=== PATIENT | female | born 1940 | race Caucasian/White ===

== ENCOUNTER 2016-10-12 10:32 | Emergency (ER) | payer BC, MEDICAID ==
[~2016-10-12] VITALS: Wt 86.0 kg
[~2016-10-12 10:32] MED LIST: ALBU8.5H3; ASPI-535; DICL75TA2; DOCU100C; ESOM40CA; GABA300C16; GLIP5TAB13 PO; METF-480 PO; PAIN; PANT40TA4 PO; SUCR1TAB; VALS1TAB65; ZOC20; [UNRECOGNIZED DRUG - REMARK]
[2016-10-12] MEDS ORDERED: METHYLPREDNISOLONE 125 MG INJ IV STA (11:09)
[2016-10-12] MEDS ORDERED: IPRATROPIUM (NEB) 0.5 MG/2.5 ML AMP INH STA (11:09)
[2016-10-12] MEDS ORDERED: ALBUTEROL 0.5% (NEB) 2.5 MG/0.5 ML AMP INH STA ×2 (11:09→14:28)
--- NOTE | 2016-10-12 11:12 | ERA ---
ER Documentation Chief Complaint Date/Time DATE: 10/12/16 TIME: 11:12 Chief Complaint cough and congestion for the past month. recent travel from [facility] HPI 76-year-old female with a history of diabetes mellitus type 2, hypertension, dyslipidemia, GERD and asthma brought to the ED by daughter for evaluation one-week history of worsening shortness of breath, wheezing and nonproductive cough. Denies chest pain or palpitations. No abdominal pain, nausea, vomiting, diarrhea or constipation. Denies leg pain or swelling. No headache or neck pain. No sore throat, rhinorrhea or body aches. No fevers or chills. She has had intermittent waxing and waning worsening symptoms since July 2016 but seems to be worse since returning from [facility] week ago. ROS All systems reviewed and are negative except as per history of present illness. Medications Home Meds Active Scripts Prednisone* (Prednisone*) 20 Mg Tab, 40 MG PO DAILY for 3 Days, TAB with food or milk Prov:ALTA COTTON MD 10/12/16 Azithromycin* (Zithromax*) 250 Mg Tablet, 250 MG PO .ZPACK DIRECTED, #6 TAB TAKE 500 MG (2 TABS) THE FIRST DAY THEN 250 MG (1 TAB) DAYS 2-5 Prov:ALTA COTTON MD 10/12/16 Albuterol Sulfate* (Proair HFA*) 8.5 Gm Hfa.aer.ad, 2 PUFF INH Q4H Y for WHEEZING AND SOB, #1 INHALER Prov:ALTA COTTON MD 10/12/16 Reported Medications Ergocalciferol* (Drisdol* (Vitamin D2)) 50,000 Unit Capsule, 40698 UNIT PO Q7D, CAP 10/12/16 Fenofibrate* (Lipofen*) 150 Mg Capsule, 160 MG PO DAILY, TAB 10/12/16 Gabapentin* (Gabapentin*) 300 Mg Capsule, 300 MG PO BID, #60 CAP 10/12/16 Sitagliptin* (Januvia*) 50 Mg Tablet, 50 MG PO DAILY, #30 TAB 10/12/16 Metformin* (Glucophage*) 850 Mg Tablet, 850 MG PO BID, #30 TAB 10/12/16 Omeprazole* (Omeprazole*) 40 Mg Capsule.dr, 40 MG PO DAILY, #30 CAP 10/12/16 Valsartan-Hydrochlorothiazide (Valsartan-HCTZ) 320-25 Mg Tablet, 1 TAB PO DAILY , #30 TAB 10/12/16 Sucralfate* (Carafate*) 1 Gm Tab, 1 GM PO AC MEALS AND BEDTIME, TAB 10/12/16 Albuterol Sulfate* (Proair HFA*) 8.5 Gm Hfa.aer.ad, 2 PUFF INH Q4H Y for WHEEZING AND SOB, #1 INHALER 10/12/16 Beclomethasone Dip* (Qvar 40*) 7.3 Gm Inha, 1 PUFF INH BID, #1 INHALER 10/12/16 Aspirin* (Aspirin* EC) 81 Mg Tablet., 81 MG PO DAILY, TAB 10/12/16 Discontinued Reported Medications [Pain] No Conflict Check 11/02/12 Pantoprazole* (Pantoprazole*) 40 Mg Tablet.dr, 40 MG PO DAILY, #1 11/02/12 Glipizide* (Glipizide*) 5 Mg Tablet, 5 MG PO BID, #1 11/02/12 Metformin* (Glucophage*) 850 Mg Tablet, 850 MG PO BID, #1 11/02/12 Albuterol Sulfate* (Proair HFA*) 8.5 Gm Hfa.aer.ad 11/01/12 [Ulcer Med Name Unk] No Conflict Check 10/14/12 Aspirin Ec (Aspir 81) 81 Mg Tablet. 10/14/12 Sucralfate (Carafate) 1 G Tablet 10/20/10 Docusate Sodium (Docu Soft) 100 Mg Capsule 06/22/10 Gabapentin* (Gabapentin*) 300 Mg Capsule 06/22/10 Valsartan-Hydrochlorothiazide (Diovan HCT) 1 Tab Tablet 06/22/10 Simvastatin (Simvastatin) 20 Mg Tablet 06/22/10 Esomeprazole Mag Trihydrate (Nexium) 40 Mg Capsule. 06/22/10 Diclofenac Sodium* (Diclofenac Sodium*) 75 Mg Tablet. 06/22/10 Allergies Allergies: Coded Allergies: No Known Drug Allergies (Verified Allergy, Unknown, 01/30/14) PMhx/Soc Reviewed in chart. As per HPI. History of Surgery: Yes (HERNIA;ABDOMINAL SURGERIES, right shoulder, GB) Anesthesia Reaction: No Hx Neurological Disorder: No Hx Respiratory Disorders: Yes (ASTHMA) Hx Cardiac Disorders: Yes (HTN) Hx Psychiatric Problems: No Hx Miscellaneous Medical Probl: Yes (DM,HIGH CHOLESTEROL) Hx Alcohol Use: No Hx Substance Use: No Hx Tobacco Use: Yes Smoking Status: Former smoker FmHx No stroke or cancer Physical Exam Vitals Vital Signs Date Time Temp Pulse Resp B/P Pulse Ox O2 Delivery O2 Flow Rate FiO2 10/12/16 12:16 92 22 96 1.0 10/12/16 11:41 Nasal Cannula 2 10/12/16 10:33 98.6 119 28 145/79 92 Physical Exam Const: Alert, mild respiratory distress. Head: Atraumatic Eyes: Normal Conjunctiva ENT: Normal External Ears, Nose and Mouth. Neck: Full range of motion. No JVD. Resp: Decreased breath sounds bilaterally with mild to moderate expiratory wheezing and prolonged expiratory phase. No rhonchi or rales. Cardio: Regular rate and rhythm, no murmurs Abd: Soft, non tender, non distended. Normal bowel sounds. Obese. Skin: No petechiae or rashes Back: No midline or flank tenderness Ext: No cyanosis, or edema. No calf pain or swelling. Neur: Awake and alert. Cranial nerves II through XII are grossly intact. No focal deficit observed. Psych: Normal Mood and Affect Result Diagram: 10/12/16 1130 10/12/16 1130 Results 24 hrs Laboratory Tests Test 10/12/16 11:30 Anion Gap 12 B-Type Natriuretic Peptide 225PG/ML Basophils # 0.010^3/ul Basophils % 0.4% Blood Morphology Comment Blood Urea Nitrogen 14mg/dl Calcium Level 9.1mg/dl Carbon Dioxide Level 34mmol/L Chloride Level 95mmol/L Creatinine 0.94mg/dl Eosinophils # 0.610^3/ul Eosinophils % 6.2% Glucose Level 283mg/dl Hematocrit 39.2% Hemoglobin 13.0g/dl Lymphocytes # 1.710^3/ul Lymphocytes % 18.6% Mean Corpuscular Hemoglobin 28.8pg Mean Corpuscular Hemoglobin Concent 33.2g/dl Mean Corpuscular Volume 86.6fl Mean Platelet Volume 8.6fl Monocytes # 0.510^3/ul Monocytes % 5.7% Neutrophils # 6.210^3/ul Neutrophils % 69.1% Nucleated Red Blood Cells # 0.010^3/ul Nucleated Red Blood Cells % 0.0/100WBC Platelet Count 85238^3/UL Potassium Level 3.4mmol/L Red Blood Count 4.5310^6/ul Red Cell Distribution Width 13.7% Sodium Level 138mmol/L Troponin I < 0.012ng/ml White Blood Count 9.010^3/ul Current Medications Medications (Trade) Dose Ordered Sig/Roxanna Route PRN Reason Start Time Stop Time Status Last Admin Dose Admin Albuterol (Proventil 0.5% (Neb)) 15 mg ONCE STAT INH 10/12/16 11:09 10/12/16 11:12 DC 10/12/16 12:15 Ipratropium [place] (Atrovent 0.02% (Neb)) 1 mg ONCE STAT INH 10/12/16 11:09 10/12/16 11:12 DC 10/12/16 12:15 Methylprednisolone Sodium Succinate (Solu-Medrol) 125 mg ONCE STAT IV 10/12/16 11:09 10/12/16 11:12 DC 10/12/16 11:56 RHYTHM STRIP INTERPRETATION: Time: 11: 05. Sinus rhythm. Ventricular rate 105. No ectopy. Indication: Shortness of breath. EKG: TIME: 10: 51. Sinus tachycardia. Ventricular rate 104. Normal CT QRS. No acute ST segment elevation or depression. No ectopy. EP Interpretation: Sinus tachycardia, otherwise normal ECG. IMAGING: PROCEDURE: XR Chest AP portable CLINICAL INDICATION: Short of breath TECHNIQUE: An AP portable radiograph of the chest was submitted. COMPARISON: 03/14/2013 FINDINGS: Support Hardware: None Cardiovascular: The cardiovascular silhouette appears unremarkable except for atherosclerotic change involving the aorta. Lung Christianson: There is slight interstitial prominence at the lung bases increased over the previous. Pleural Spaces: No pneumothorax or pleural effusion is identified. Osseous Structures: [place] sutures are seen within the proximal right humeral head. Soft Tissues: The soft tissues appear generous. IMPRESSION: 1. Atherosclerotic aorta 2. Increasing interstitial markings seen at the lung bases exaggerated by suboptimal inspiration. 3. Previous right shoulder surgery. R Pedro, Physician Date Time Electronically viewed and signed by Physician Moody on 10/12/2016 11:55 RH/ Procedures/MDM DOCUMENTS REVIEWED: ED nurse, prior ED, prior records ED COURSE: Nebulized albuterol 15 mg and Atrovent 1 mg. Solu-Medrol 125 mg IV REEXAMINATION/REEVALUATION: Time: 13: 45. Doing well. No further wheezing. Lungs clear. MEDICAL DECISION MAKIN-year-old female with a history of diabetes mellitus type 2, hypertension, dyslipidemia, GERD and asthma brought to the ED by daughter for evaluation one-week history of worsening shortness of breath, wheezing and nonproductive cough. Patient presents with symptoms consistent with acute asthma exacerbation and bronchitis possibly bacterial. No radiographic evidence of pneumonia or pneumothorax. Symptoms improved significantly with nebulized beta agonists and intravenous corticosteroids. Mild hyperglycemia and the patient will require vigilance of her blood sugars. Stable for discharge with precautionary instructions, albuterol inhaler, short course of steroids, antibiotics and outpatient follow-up as counseled. Counseled [patient and family] regarding diagnostic workup, diagnosis and need for followup. Understands to return to ED if symptoms recur, worsen or any other concerns. Departure Diagnosis: Primary Impression: Acute asthma exacerbation Qualified Code: J45.901 - Asthma with acute exacerbation, unspecified asthma severity Additional Impressions: Hyperglycemia due to type 2 diabetes mellitus Qualified Code: E11.65 - Type 2 diabetes mellitus with hyperglycemia, unspecified roasterman insulin use status Acute bronchitis Qualified Code: J20.9 - Acute bronchitis, unspecified organism Hypertension Qualified Code: I10 - Essential hypertension Condition: Stable Patient Instructions: Asthma, Acute (Adult), Bronchitis With Wheezing (Adult), High Blood Pressure (Hypertension) ALTA COTTON MD Oct 12, 2016 11:12
[2016-10-12] MEDS ORDERED: BECL8.7A INH (11:19)
[2016-10-12] MEDS ORDERED: ASPI-664 PO (11:19)
[2016-10-12] MEDS ORDERED: ALBU8.5H3 INH ×2 (11:20→14:01)
[2016-10-12] MEDS ORDERED: VALS1TAB82 PO (11:20)
[2016-10-12] MEDS ORDERED: OMEP40CA6 PO (11:20)
[2016-10-12] MEDS ORDERED: SUCR1TAB56 PO (11:20)
[2016-10-12] MEDS ORDERED: METF-480 PO (11:21)
[2016-10-12] MEDS ORDERED: GABA300C16 PO (11:21)
[2016-10-12] MEDS ORDERED: SITA50TA2 PO (11:21)
[2016-10-12] MEDS ORDERED: ERGO500014 PO (11:22)
[2016-10-12] MEDS ORDERED: FENO150C2 PO (11:22)
[2016-10-12 11:45] LABS: BASOPHILS % 0.4 % (0.0-2.0); EOSINOPHILS # 0.6 10^3/ul (0.0-0.5); EOSINOPHILS % 6.2 % (0.0-7.0); HEMATOCRIT 39.2 % (37.0-47.0); LYMPHOCYTES # 1.7 10^3/ul (0.8-2.9); LYMPHOCYTES % 18.6 % (15.0-51.0); MEAN CORPUSCULAR HEMOGLOBIN 28.8 pg (29.0-33.0); MEAN CORPUSCULAR HGB CONC 33.2 g/dl (32.0-37.0); MEAN CORPUSCULAR VOLUME 86.6 fl (82.0-101.0); MEAN PLATELET VOLUME 8.6 fl (7.4-10.4); MONOCYTE # 0.5 10^3/ul (0.3-0.9); MONOCYTES % 5.7 % (0.0-11.0); NEUTROPHIL # 6.2 10^3/ul (1.6-7.5); NEUTROPHILS % 69.1 % (39.0-77.0); PLATELET COUNT 254 10^3/UL (140-440); RED BLOOD COUNT 4.53 10^6/ul (4.20-5.40); RED CELL DISTRIBUTION WIDTH 13.7 % (11.5-14.5)
[2016-10-12 11:49] LABS: CONDITION 1
[2016-10-12 11:55] LABS: CHLORIDE 95 mmol/L (97-110); POTASSIUM 3.4 mmol/L (3.5-5.1); SODIUM 138 mmol/L (135-144)
--- NOTE | 2016-10-12 11:56 | RADRPT ---
PROCEDURE: XR Chest AP portable CLINICAL INDICATION: Short of breath TECHNIQUE: An AP portable radiograph of the chest was submitted. COMPARISON: 03/14/2013 FINDINGS: Support Hardware: None Cardiovascular: The cardiovascular silhouette appears unremarkable except for atherosclerotic change involving the aorta. Lung Christianson: There is slight interstitial prominence at the lung bases increased over the previous. Pleural Spaces: No pneumothorax or pleural effusion is identified. Osseous Structures: [place] sutures are seen within the proximal right humeral head. Soft Tissues: The soft tissues appear generous. IMPRESSION: 1. Atherosclerotic aorta 2. Increasing interstitial markings seen at the lung bases exaggerated by suboptimal inspiration. 3. Previous right shoulder surgery. Physician Moody Date Time Electronically viewed and signed by Physician Moody on 10/12/2016 11:55 /
[2016-10-12 11:58] LABS: ANION GAP 12 (8-16); BLOOD UREA NITROGEN 14 mg/dl (7-20); CALCIUM 9.1 mg/dl (8.4-10.2); CARBON DIOXIDE 34 mmol/L (21-31); CREATININE 0.94 mg/dl (0.44-1.00); GLUCOSE 283 mg/dl (70-220)
[2016-10-12 12:05] LABS: B-TYPE NATRIURETIC PEPTIDE 225 PG/ML (0-450)
[2016-10-12 12:30] LABS: TROPONIN-I < 0.012 ng/ml (0.00-0.12)
[2016-10-12] MEDS ORDERED: AZIT250T94 PO (14:01)
[2016-10-12] MEDS ORDERED: PRED20TA PO (14:01)
[2016-10-12] MEDS ORDERED: ALBU2.5V3 NEB (14:19)
[2016-10-12 14:21] VITALS: BP 110/69
[2016-10-12 15:19] VITALS: PULSE 78; RESP 22
== END 2016-10-12 15:25 | disposition home or self-care (01) ==
LOC: E/R 10:32
DX: J45.901 Unspecified asthma with (acute) exacerbation (principal); E11.65 Type 2 diabetes mellitus with hyperglycemia; J20.9 Acute bronchitis, unspecified; I10 Essential (primary) hypertension; Z79.4 Long term (current) use of insulin; Z79.82 Long term (current) use of aspirin; Z87.891 Personal history of nicotine dependence
CPT/HCPCS: 71010; 80048; 83880; 84484; 85025; 87400; 93005; 94644; 94645; 96374; 99285; J2930

== ENCOUNTER 2016-10-19 18:35 | Inpatient (IN) | payer BC, MEDICAID ==
[~2016-10-19] VITALS: Ht 157.5 cm; Wt 88.3 kg
[~2016-10-19 18:35] MED LIST changes: +ALBU2.5V3 NEB; -ALBU8.5H3; +ALBU8.5H3 INH; -ASPI-535; +ASPI-664 PO; +AZIT250T94 PO; +BECL8.7A INH; -DICL75TA2; -DOCU100C; +ERGO500014 PO; -ESOM40CA; +FENO150C2 PO; -GABA300C16; +GABA300C16 PO; -GLIP5TAB13 PO; +OMEP40CA6 PO; -PAIN; -PANT40TA4 PO; +PRED20TA PO; +SITA50TA2 PO; -SUCR1TAB; +SUCR1TAB56 PO; -VALS1TAB65; +VALS1TAB82 PO; -ZOC20; -[UNRECOGNIZED DRUG - REMARK]
[2016-10-19] MEDS ORDERED: ALBUTEROL 0.5% (NEB) 2.5 MG/0.5 ML AMP INH STA (21:49)
[2016-10-19] MEDS ORDERED: ONDANSETRON 4 MG INJ IV STA (21:49)
[2016-10-19] MEDS ORDERED: SOD CHLORIDE 0.9% 1,000 ML IV STA (21:49)
[2016-10-19] MEDS ORDERED: SOD CHLORIDE 0.9% 100 ML ONE (22:08)
[2016-10-19] MEDS ORDERED: IOHEXOL 100 ML ONE (22:08)
[2016-10-19 23:05] LABS: INR 1.03; PROTIME 13.5 Sec (12.2-14.2); PT RATIO 1.1
[2016-10-19 23:06] LABS: ALBUMIN 3.6 g/dl (3.3-4.9); POTASSIUM 3.6 mmol/L (3.5-5.1)
[2016-10-19 23:08] LABS: BASOPHILS % 0.2 % (0.0-2.0); BILIRUBIN,INDIRECT 0.3 mg/dl (0-1.1); BILIRUBIN,TOTAL 0.3 mg/dl (0.2-1.3); CREATININE 0.95 mg/dl (0.44-1.00); EOSINOPHILS # 0.3 10^3/ul (0.0-0.5); EOSINOPHILS % 3.3 % (0.0-7.0); HEMATOCRIT 38.1 % (37.0-47.0); HEMOGLOBIN 12.7 g/dl (12.0-16.0); LYMPHOCYTES # 2.7 10^3/ul (0.8-2.9); MEAN CORPUSCULAR HEMOGLOBIN 30.1 pg (29.0-33.0); MEAN CORPUSCULAR HGB CONC 33.3 g/dl (32.0-37.0); MEAN CORPUSCULAR VOLUME 90.3 fl (82.0-101.0); MEAN PLATELET VOLUME 9.2 fl (7.4-10.4); MONOCYTE # 0.7 10^3/ul (0.3-0.9); MONOCYTES % 6.9 % (0.0-11.0); NEUTROPHIL # 6.7 10^3/ul (1.6-7.5); NEUTROPHILS % 63.6 % (39.0-77.0); PLATELET COUNT 227 10^3/UL (140-440); RED BLOOD COUNT 4.22 10^6/ul (4.20-5.40); RED CELL DISTRIBUTION WIDTH 13.9 % (11.5-14.5); UNCORRECTED WBC 10.5 10^3/ul (4.8-10.8); WHITE BLOOD COUNT 10.5 10^3/ul (4.8-10.8)
[2016-10-19 23:09] LABS: ALBUMIN/GLOBULIN RATIO 1.05
[2016-10-19 23:11] LABS: CONDITION 1
[2016-10-19 23:20] LABS: TROPONIN-I 0.024 ng/ml (0.00-0.12)
[2016-10-19] MEDS ORDERED: HEPARIN 25000 UNITS/250 ML 250 ML IV STA (23:41)
[2016-10-19] MEDS ORDERED: HEPARIN 1000 UNITS/ML 10 ML INJ IV STA (23:41)
--- NOTE | 2016-10-19 23:45 | RADRPT ---
PROCEDURE: CTA CHEST WITH CONTRAST CLINICAL INDICATION: 76-year-old diabetic female with shortness of breath and hypertension. TECHNIQUE: The study was performed utilizing a [employer] VCT 64-slice CT scanner. Direct axi al sections were obtained from the thoracic inlet through the chest to the upper abdomen with a bolu s injection of 100 cc of Omnipaque 350 nonionic contrast material. Sagittal, coronal and maximal int ensity projections re-formations were obtained. Automated exposure control and iterative reconstruct ion techniques were utilized for this examination. The images were reviewed on a PACS workstation. CTD/vol = 35.7 mGy; Total Exam DLP = 550.2 mGy-cm. COMPARISON: None. FINDINGS: The aorta is mildly calcified but without aneurysmal dilatation or dissection. Cardiomegaly is prese nt. Coronary artery calcifications are visualized. There are small lymph nodes seen within the medi astinum which are not pathologic by size criteria. The main pulmonary artery is enlarged measuring 3 .9 cm suggestive of pulmonary hypertension. There are filling defects identified within the right t runcus anterior, right interlobar or, right basal segmental, left middle lobe, left basal segmental branches consistent with pulmonary emboli. There is scarring within the lung apices. There is a taina cified granuloma within the superior segment of the left lower lobe on axial image 3-41 measuring ap proximately 8 x 4 x 5 mm. There is a small nodular density with central calcification presumably re presenting a granuloma on axial image 3-41 measuring 4 x 4 mm. There is minimal bibasilar subsegmen lucian atelectasis. There is no evidence for focal consolidation. There is no evidence for a pneumothorax. Mild degenerative changes are present within the spine. Scans through the upper abdomen reveals that the upper liver has a mildly irregular contour with a s mall nonspecific peripheral right hepatic posterior calcific density measuring 6 x 5 mm on axial ramiro ge 3-181. The gallbladder is not visualized presumably from prior cholecystectomy. The adrenal gland s have a normal appearance. The upper kidneys are functional and are without evidence for obstructio n. There are bilateral renal cysts identified. The largest cyst on the right side is in the mid ri ght kidney measuring 5.4 x 5.6 cm. The largest cyst in the left side is partially visualized within the peripelvic region measuring 2.7 x 2.8 cm. IMPRESSION: 1. Cardiomegaly with coronary artery calcifications. 2. Enlarged main pulmonary artery suggestive of pulmonary hypertension. 3. Multiple bilateral pulmonary emboli more prominently on the right side involving the right trunc us anterior, right interlobar and bilateral basal segmental branches. 4. No CTA evidence for thoracic aortic aneurysm/dissection. 5. Biapical scarring. 6. Right upper lobe and superior segment left lower lobe granulomas. 7. Minimal bibasilar subsegmental atelectasis. 8. Partially visualized bilateral renal cysts. 9. Degenerative changes within the spine. CRITICAL RESULTS: A call report was made to [facility] ER Dr. Riley on October 19, 2016 11:38 p.m. .Pedro Stevens MD, Date Time Electronically viewed and signed by .Pedro Stevens MD, on 10/19/2016 23:45 .Rinku/
--- NOTE | 2016-10-19 23:49 | RADRPT ---
PROCEDURE: CHEST - 1 VIEW CLINICAL INDICATION: 76-year-old female with shortness of breath and hypertension.. TECHNIQUE: A single frontal AP upright view of the chest was performed portably. The images were reviewed on a PACS workstation. COMPARISON: Chest x-ray October 12, 2016. FINDINGS: The cardiomediastinal silhouette is enlarged. The thoracic aortic arch is calcified. Chronic lung changes are present. There is mild biapical scarring. There is a granuloma within the left upper l judith zone measuring approximately 6 mm. There is mild bibasilar subsegmental atelectasis. There is no evidence for focal consolidation. There is no evidence for congestive heart failure. There is no evidence for pneumothorax. Surgical anchors are seen within the right humeral head. IMPRESSION: 1. Cardiomegaly. 2. Calcified thoracic aortic arch. 3. Chronic lung changes with biapical scarring. 4. Left upper lung zone 6 mm granuloma. 5. Mild bibasilar subsegmental atelectasis. 6. Prior right shoulder surgery. .Pedro Stevens MD, Date Time Electronically viewed and signed by .Pedro Stevens MD, on 10/19/2016 23:48 .M/
--- NOTE | 2016-10-19 23:56 | ERA ---
ER Documentation Chief Complaint Date/Time DATE: 10/19/16 TIME: 23:52 Chief Complaint SOB x 1 week with weakness and cough HPI 76-year-old woman brought in by family member for continued weakness and cough, she also complains of posterior upper back pain and shortness of breath. Symptoms have been going on for about 10 days, ever since she returned from [facility] after a very long flight (over 5 hours) which had multiple different connections in [facility] and [facility]. She was seen and evaluated here a few days ago and diagnosed with asthma/bronchitis and treated in the ED with bronchodilators and discharged with a prescription of albuterol and azithromycin , which she states she has been using without relief. She denies chest pain, no fevers or chills, no vomiting or diarrhea, no headache or blurry vision. Patient denies lower extremity swelling, denies history of blood clots, no loss of consciousness. ROS All systems reviewed and are negative except as per history of present illness. Medications Home Meds Active Scripts Albuterol Sulfate* (Albuterol Sulfate* Neb) 0.083%-3 Ml Neb, 2.5 MG NEB Q4 Y for SHORTNESS OF BREATH, #30 EA Prov:ALTA COTTON MD 10/12/16 Prednisone* (Prednisone*) 20 Mg Tab, 40 MG PO DAILY for 3 Days, TAB with food or milk Prov:ALTA COTTON MD 10/12/16 Albuterol Sulfate* (Proair HFA*) 8.5 Gm Hfa.aer.ad, 2 PUFF INH Q4H Y for WHEEZING AND SOB, #1 INHALER Prov:ALTA COTTON MD 10/12/16 Reported Medications Ergocalciferol* (Drisdol* (Vitamin D2)) 50,000 Unit Capsule, 33245 UNIT PO Q7D, CAP 10/12/16 Fenofibrate* (Lipofen*) 150 Mg Capsule, 160 MG PO DAILY, TAB 10/12/16 Gabapentin* (Gabapentin*) 300 Mg Capsule, 300 MG PO BID, #60 CAP 10/12/16 Sitagliptin* (Januvia*) 50 Mg Tablet, 50 MG PO DAILY, #30 TAB 10/12/16 Metformin* (Glucophage*) 850 Mg Tablet, 850 MG PO BID, #30 TAB 10/12/16 Omeprazole* (Omeprazole*) 40 Mg Capsule.dr, 40 MG PO DAILY, #30 CAP 10/12/16 Valsartan-Hydrochlorothiazide (Valsartan-HCTZ) 320-25 Mg Tablet, 1 TAB PO DAILY , #30 TAB 10/12/16 Sucralfate* (Carafate*) 1 Gm Tab, 1 GM PO AC MEALS AND BEDTIME, TAB 10/12/16 Beclomethasone Dip* (Qvar 40*) 7.3 Gm Inha, 1 PUFF INH BID, #1 INHALER 10/12/16 Aspirin* (Aspirin* EC) 81 Mg Tablet.dr, 81 MG PO DAILY, TAB 10/12/16 Discontinued Reported Medications Albuterol Sulfate* (Proair HFA*) 8.5 Gm Hfa.aer.ad, 2 PUFF INH Q4H Y for WHEEZING AND SOB, #1 INHALER 10/12/16 Discontinued Scripts Azithromycin* (Zithromax*) 250 Mg Tablet, 250 MG PO .ZPACK DIRECTED, #6 TAB TAKE 500 MG (2 TABS) THE FIRST DAY THEN 250 MG (1 TAB) DAYS 2-5 Prov:ALTA COTTON MD 10/12/16 Allergies Allergies: Coded Allergies: No Known Drug Allergies (Verified Allergy, Unknown, 10/19/16) PMhx/Soc Obesity, asthma, hypertension, diabetes mellitus History of Surgery: Yes (HERNIA;ABDOMINAL SURGERIES, right shoulder, GB) Anesthesia Reaction: No Hx Neurological Disorder: No Hx Respiratory Disorders: Yes (ASTHMA) Hx Cardiac Disorders: Yes (HTN) Hx Psychiatric Problems: No Hx Miscellaneous Medical Probl: Yes (DM,HIGH CHOLESTEROL) Hx Alcohol Use: No Hx Substance Use: No Hx Tobacco Use: Yes Smoking Status: Never smoker FmHx Family History: No diabetes Physical Exam Vitals Vital Signs Date Time Temp Pulse Resp B/P Pulse Ox O2 Delivery O2 Flow Rate FiO2 10/20/16 00:00 2.0 10/19/16 22:43 Non Rebreather 10/19/16 22:40 98.3 92 24 150/82 94 Venturi Mask 10.0 10/19/16 22:36 Non Rebreather 10/19/16 21:59 101 32 94 21 10/19/16 19:52 98.8 104 24 146/73 91 Physical Exam GENERAL: Well-developed, tachypnea, dyspneic, afebrile HEENT: Moist mucous membranes, pink conjunctiva, no cervical spine tenderness or step-off deformities, no goiter, no jaundice or icterus, extraocular movements intact without pain. No submandibular induration, and no pharyngeal erythema NEURO: Alert and oriented 3, cranial nerves II through XII intact bilaterally, pupils equal round reactive to light, no focal deficits or facial asymmetry, sensation intact distally Strength 5/5 in upper and lower extremities bilaterally CARDIAC: Tachycardic and regular, no murmurs rubs or gallops LUNGS: No obvious wheezing, crackles, or stridor ABDOMEN: Soft nontender, no guarding, no rigidity, no rebound, no psoas sign no obturator sign. Normoactive bowel sounds SKIN: Warm and dry to touch, no abrasions, contusions, or hematomas, no lacerations, no ecchymosis, no target lesions, and without ulcers EXTREMITIES: No clubbing cyanosis or edema, calves are bilaterally symmetrical, no Homans sign, no popliteal cord sign. Distal pulses equal and bilateral PSYCH: Normal affect without agitation or irritability Result Diagram: 10/19/16222210/19/163 Results 24 hrs Laboratory Tests Test 10/19/16 22:23 10/19/16 23:41 Alanine Aminotransferase (ALT/SGPT) 27IU/L Albumin 3.6g/dl Albumin/Globulin Ratio 1.05 Alkaline Phosphatase 60IU/L Anion Gap 14 Aspartate Amino Transf (AST/SGOT) 26IU/L Basophils # 0.010^3/ul Basophils % 0.2% Blood Urea Nitrogen 15mg/dl Calcium Level 9.0mg/dl Carbon Dioxide Level 31mmol/L Chloride Level 96mmol/L Creatinine 0.95mg/dl Direct Bilirubin 0.00mg/dl Eosinophils # 0.310^3/ul Eosinophils % 3.3% Globulin 3.40g/dl Glucose Level 256mg/dl Hematocrit 38.1% Hemoglobin 12.7g/dl INR International Normalized Ratio 1.03 Indirect Bilirubin 0.3mg/dl Lipase 91U/L Lymphocytes # 2.710^3/ul Lymphocytes % 26.0% Mean Corpuscular Hemoglobin 30.1pg Mean Corpuscular Hemoglobin Concent 33.3g/dl Mean Corpuscular Volume 90.3fl Mean Platelet Volume 9.2fl Monocytes # 0.710^3/ul Monocytes % 6.9% Neutrophils # 6.710^3/ul Neutrophils % 63.6% Nucleated Red Blood Cells # 0.010^3/ul Nucleated Red Blood Cells % 0.0/100WBC Platelet Count 32761^3/UL Potassium Level 3.6mmol/L Prothrombin Time 13.5Sec Prothrombin Time Ratio 1.1 Red Blood Count 4.2210^6/ul Red Cell Distribution Width 13.9% Sodium Level 137mmol/L Total Bilirubin 0.3mg/dl Total Protein 7.0g/dl Troponin I 0.024ng/ml White Blood Count 10.510^3/ul Arterial Blood HCO3 29.3mmol/L Arterial Blood Base Excess 3.3mmol/L Arterial Blood Oxygen Saturation 94.4mmHG Yared Test N/A Arterial Blood Gas Puncture Site Right Brachial Arterial Blood Carboxyhemoglobin 0.3% Arterial Blood Date Drawn 10/20/2016 12:13:37 AM Arterial Blood Methemoglobin 0.2% Arterial Blood pCO2 (Temp correct) 50.4mmhg Arterial Blood pH (Temp corrected) 7.382 Arterial Blood pO2 (Temp corrected) 72.7mmHG Blood Gas A-a O2 Differential 60.2mmHg Blood Gas Modality NASAL CANNULA Blood Gas Notified Time 10/20/2016 12:18:05 AM Blood Gas Notified Whom MG Blood Gas Specimen Source Blood arterial Blood Gas Temperature 37.0C FiO2 27.0% Oxyhemoglobin Percent 93.9% Total Hemoglobin 12.8g/dl Current Medications Medications (Trade) Dose Ordered Sig/Roxanna Route PRN Reason Start Time Stop Time Status Last Admin Dose Admin Albuterol 10 mg 10 mg ONCE STAT INH 10/19/16 21:49 10/19/16 21:51 DC 10/19/16 21:59 Sodium Chloride (NS) 1,000 ml @ 1,000 mls/hr Q1H STAT IV 10/19/16 21:49 10/19/16 22:48 DC 10/19/16 22:06 Ondansetron HCl (Zofran Inj) 4 mg ONCE STAT IV 10/19/16 21:49 10/19/16 21:51 DC 10/19/16 22:06 IV Flush 10 ml 10 ml STK-MED ONCE .ROUTE 10/19/16 22:08 10/19/16 22:09 DC 10/19/16 22:44 Sodium Chloride 100 ml @ ud STK-MED ONCE .ROUTE 10/19/16 22:08 10/19/16 22:09 DC 10/19/16 22:45 Iohexol (Omnipaque) 100 ml @ ud STK-MED ONCE .ROUTE 10/19/16 22:08 10/19/16 22:09 DC 10/19/16 22:45 Aspirin (Aspirin) 325 mg ONCE ONCE PO 10/20/16 00:00 10/20/16 00:01 DC 10/20/16 00:08 Heparin Sodium (Porcine) 5000 unit 5,000 unit ONCE STAT IV 10/19/16 23:41 10/19/16 23:45 DC 10/20/16 00:07 Heparin Sodium (Porcine) (Heparin 07685 Units/250 ml) 250 ml @ 0 mls/hr ONCE STAT IV 10/19/16 23:41 10/19/16 23:45 DC 10/20/16 00:08 Enalaprilat (Vasotec Iv) 1.25 mg ONCE ONCE IV 10/20/16 00:00 10/20/16 00:01 DC 10/20/16 00:06 Procedures/MDM IV line was established patient was placed on back filler operator rhythm strip revealed a narrow complex tachycardia at about 100 bpm with upright P and T waves. Patient was afebrile and hypoxic on room air. EKG performed, read by me: 100 bpm, sinus tachycardia, normal axis, no acute ST segment changes, narrow QRS complex, with good R-wave progression in precordial leads. One AP view of the chest performed, read by me reveals no acute infiltrates, normal mediastinum, sharp costophrenic and cardiac borders, no air under the diaphragm. Otherwise unremarkable chest x-ray. I administered 1 L normal saline intravenously and initially albuterol 10 mg via nebulizer with Zofran 4 mg IV. There was minimal improvement in symptoms. Given the patient's initial tachycardia and hypoxia and continued symptoms a CT angiogram of the chest was ordered. CTA reveals bilateral pulmonary emboli worse on the right compared to the left. Please refer to radiologist dictation for full report. I treated the patient immediately with aspirin 325 mg p.o., heparin 5000 unit bolus followed by heparin drip. Cardiac Critical Care: Time: 50 minutes, this was time separate from other procedures Treatments/Evaluations: Close monitoring for dangerous arrhythmia and cardiovascular collapse, while treating with advance cardiac medications and techniques. CBC was unremarkable, electrolytes revealed a BUN/creatinine of 15/1, liver function tests were normal, troponin was negative. ABG was performed on low flow oxygen revealing a pH of 7.38, PCO2 50, PO2 73 revealing respiratory alkalosis with a normal pH. Patient will be admitted to telemetry setting for continued anticoagulant therapy. Departure Diagnosis: Primary Impression: Pulmonary emboli Qualified Code: I26.09 - Other acute pulmonary embolism with acute cor pulmonale Additional Impressions: Hypertension Qualified Code: I10 - Essential hypertension Shortness of breath Condition: Serious TEDDY ZHANG MD Oct 19, 2016 23:56
[2016-10-20] VITALS (13 sets, daily range): BP systolic 116–139; BP diastolic 56–71; PULSE 61–95; RESP 18–23; TEMP 98.5; Ht 157.5 cm; Wt 88.3 kg
[2016-10-20] MEDS ORDERED: ASPIRIN 325 MG TAB PO ONE
[2016-10-20] MEDS ORDERED: ENALAPRILAT 1.25 MG INJ IV ONE
[2016-10-20 00:18] LABS: AADO2 Arterial 60.2 mmHg (7.0-24.0); Arterial Base Excess 3.3 mmol/L (-3.0-3); Arterial COHb 0.3 % (0.0-3.0); Arterial Fraction of Oxyhgb 93.9 % (93.0-99.0); Arterial HCO3 29.3 mmol/L (22.0-26.0); Arterial MetHb 0.2 % (0.0-1.5); Arterial Total Hemglobin 12.8 g/dl (12.0-18.0); MODE NASAL CANNULA
[2016-10-20] MEDS ORDERED: ALBUTEROL 0.083% (NEB) 2.5 MG/3 ML AMP NEB PRN (02:30)
[2016-10-20] MEDS ORDERED: HEPARIN 25000 UNITS/250 ML 250 ML IV SCH (02:30)
[2016-10-20] MEDS ORDERED: ONDANSETRON 4 MG INJ IV PRN (02:30)
[2016-10-20] MEDS ORDERED: ALBUTEROL HFA 8 GM INHALER INH PRN (02:30)
[2016-10-20] MEDS ORDERED: GLUCOSE GEL 15 GRAM TUBE BUCCAL PRN (03:00)
[2016-10-20] MEDS ORDERED: DEXTROSE 50% 50 ML SYRINGE IV PRN ×2 (03:00)
[2016-10-20] MEDS ORDERED: ALBUTEROL 0.5% (NEB) 2.5 MG/0.5 ML AMP HHN PRN (03:00)
[2016-10-20] MEDS ORDERED: GLUCAGON 1 MG INJ IM PRN (03:00)
[2016-10-20] MEDS ORDERED: LEVALBUTEROL (NEB) 0.63 MG/3 ML AMP HHN PRN (03:00)
[2016-10-20] MEDS ORDERED: GLUCOSE GEL 15 GRAM TUBE PO PRN ×2 (03:00)
[2016-10-20] MEDS: GUAIFENESIN/CODEINE 5ML CUP PO PRN ×3 (04:20→17:40)
[2016-10-20 07:11] LABS: BASOPHILS % 0.1 % (0.0-2.0); EOSINOPHILS # 0.2 10^3/ul (0.0-0.5); EOSINOPHILS % 3.1 % (0.0-7.0); HEMATOCRIT 32.9 % (37.0-47.0); HEMOGLOBIN 10.8 g/dl (12.0-16.0); LYMPHOCYTES # 2.2 10^3/ul (0.8-2.9); LYMPHOCYTES % 29.2 % (15.0-51.0); MEAN CORPUSCULAR HEMOGLOBIN 29.5 pg (29.0-33.0); MEAN CORPUSCULAR HGB CONC 32.9 g/dl (32.0-37.0); MEAN CORPUSCULAR VOLUME 89.5 fl (82.0-101.0); MEAN PLATELET VOLUME 9.1 fl (7.4-10.4); MONOCYTE # 0.6 10^3/ul (0.3-0.9); MONOCYTES % 7.5 % (0.0-11.0); NEUTROPHIL # 4.5 10^3/ul (1.6-7.5); NEUTROPHILS % 60.1 % (39.0-77.0); PLATELET COUNT 186 10^3/UL (140-440); RED BLOOD COUNT 3.67 10^6/ul (4.20-5.40); RED CELL DISTRIBUTION WIDTH 14.1 % (11.5-14.5); UNCORRECTED WBC 7.5 10^3/ul (4.8-10.8); WHITE BLOOD COUNT 7.5 10^3/ul (4.8-10.8)
[2016-10-20 07:32] LABS: ALBUMIN 2.9 g/dl (3.3-4.9)
[2016-10-20 07:33] LABS: POTASSIUM 3.3 mmol/L (3.5-5.1)
[2016-10-20 07:35] LABS: BILIRUBIN,INDIRECT 0.3 mg/dl (0-1.1); BILIRUBIN,TOTAL 0.3 mg/dl (0.2-1.3); CREATININE 0.9 mg/dl (0.44-1.00)
[2016-10-20 07:36] LABS: CALCIUM 8.3 mg/dl (8.4-10.2); TOTAL PROTEIN 5.8 g/dl (6.1-8.1)
[2016-10-20 07:45] LABS: CONDITION 1
[2016-10-20] MEDS: INSULIN ASPART [NOVOLOG] 3 ML PEN SC SCH ×4 (08:00→21:22)
[2016-10-20] MEDS ORDERED: HEPARIN 1000 UNITS/ML 10 ML INJ IV PRN (08:30)
[2016-10-20] MEDS ORDERED: BECLOMETHASONE DIP INH SCH (09:00)
[2016-10-20] MEDS ORDERED: NON-FORMULARY/PATIENT OWN MED (Sitagliptin* (Januvia*) 50 MG) PO SCH (09:00)
[2016-10-20] MEDS ORDERED: FAMOTIDINE 20 MG INJ IV SCH (09:00)
[2016-10-20] MEDS: MOMETASONE 0.24 GM INHALER INH SCH ×2 (09:00→21:00)
--- NOTE | 2016-10-20 09:01 | HP ---
Date/Time of Note Date/Time of Note DATE: 10/20/16 TIME: 08:47 Assessment/Plan VTE Prophylaxis VTE Prophylaxis Intervention: heparin Lines/Catheters IV [facility]from [facility] Saline Lock Urinary Cath still in place: No Assessment/Plan Assessment/Plan IMPRESSION 1. Bilateral PE 2. Hx of Asthma 3. Diabetes 4. HTN PLAN - Heparin gtt, oxygen, bronchodilators. Pt was never hemodynamically unstable as such there was no need for tpa. Will order 2D-echo to eval for right heart strain. Will trend trop - Will place pulmonary consult - Insulin for Diabetes HPI/ROS Admit Date/Time Admit Date/Time Oct 20, 2016 at 00:00 Hx of Present Illness This is a 76-year-old woman with hx of DM, HTN and Asthma who presented to ER with family for SOB, weakness, chest pain and cough. Symptoms has been progressively getting worse for over a week. She recently travelled to [facility].She has been using her bronchodilators without significant improvement. In ER, CTPA showed multiple bilateral PE. O2sat on presentation was 91. Pt was never hypoxic. . PMH/Family/Social Past Medical History Medical History: diabetes, hypertension, other (asthma) Past Surgical History Past Surgical Hx: other (abdominal surgery) Social History Alcohol Use: none Smoking Status: Never smoker Drug Use: none Exam/Review of Systems Vital Signs Vitals Vital Signs Date Time Temp Pulse Resp B/P Pulse Ox O2 Delivery O2 Flow Rate FiO2 10/20/16 08:09 76 10/20/16 04:55 18 96 Nasal Cannula 2.0 10/20/16 03:31 97.9 139/65 10/19/16 21:59 21 Intake and Output 10/19/16 10/19/16 10/20/16 15:00 23:00 07:00 Intake Total 120 ml Balance 120 ml Exam Constitutional: alert, oriented, well developed Head: atraumatic, normocephalic Eyes: EOMI, nl conjunctiva Neck: non-tender, supple Respiratory: diminished breath sounds Cardiovascular: nl pulses, regular rate and rhythm Gastrointestinal: non-tender, soft Extremities: normal pulses Labs Result Diagram: 10/20/16 0553 10/20/16 0553 Medications Medications Current Medications Albuterol (Ventolin Hfa) 2 puff Q4H PRN INH WHEEZING AND SOB; Start 10/20/16 at 02:30 Aspirin (Halfprin) 81 mg DAILY PO ; Start 10/20/16 at 09:00 Gabapentin (Neurontin) 300 mg BID PO ; Start 10/20/16 at 09:00 Diagnostic Test (Pha) (Accucheck) 1 ea 02 XX ; Start 10/21/16 at 02:00 Famotidine (Pepcid Iv) 20 mg BID IV ; Start 10/20/16 at 09:00 Ondansetron HCl (Zofran Inj) 4 mg Q6H PRN IV NAUSEA AND/OR VOMITING; Start at 02:30 Acetaminophen (Tylenol Tab) 650 mg Q6H PRN PO PAIN AND OR ELEVATED TEMP; Start 10/20/16 at 02:30 Miscellaneous Information 1 ea NOTE XX ; Start 10/20/16 at 03:00 Glucose (Glutose) 15 gm Q15M PRN PO DECREASED GLUCOSE; Start 10/20/16 at 03:00 Glucose (Glutose) 22.5 gm Q15M PRN PO DECREASED GLUCOSE; Start 10/20/16 at 03: 00 Dextrose (D50w Syringe) 25 ml Q15M PRN IV DECREASED GLUCOSE; Start 10/20/16 at 03:00 Dextrose (D50w Syringe) 50 ml Q15M PRN IV DECREASED GLUCOSE; Start 10/20/16 at 03:00 Glucagon (Glucagen) 1 mg Q15M PRN IM DECREASED GLUCOSE; Start 10/20/16 at 03:00 Glucose (Glutose) 15 gm Q15M PRN BUCCAL DECREASED GLUCOSE; Start 10/20/16 at 03 :00 Linagliptin (Tradjenta) 5 mg DAILY PO ; Start 10/20/16 at 09:00 Guaifenesin/ Codeine Phosphate (Robitussin Ac Liquid Cup) 10 ml Q4H PRN PO COUGH Last administered on 10/20/16t 04:20; Admin Dose 10 ML; Start 10/20/16 at 03:00 Mometasone Furoate (Asmanex) 1 puff BID INH ; Start 10/20/16 at 09:00 Heparin Sodium (Porcine) (Heparin (1000 Units/ml)) PRN PRN IV PENDING LAB VALUE; Start 10/20/16 at 08:30 SANTIAGO DIAZ MD Oct 20, 2016 09:00
[2016-10-20 09:27] LABS: CHOL/HDL RATIO 2.9 RATIO
[2016-10-20] MEDS: ACETAMINOPHEN 325 MG TAB PO PRN (09:37)
[2016-10-20] MEDS: ASPIRIN (EC) 81 MG TAB PO SCH (09:59)
[2016-10-20] MEDS: SUCRALFATE 1 GM TAB PO SCH ×4 (09:59→21:18)
[2016-10-20] MEDS: LINAGLIPTIN 5 MG TABLET PO SCH (09:59)
[2016-10-20] MEDS: GABAPENTIN 300 MG CAP PO SCH ×2 (10:06→21:18)
--- NOTE | 2016-10-20 15:31 | PN ---
Date/Time of Note Date/Time of Note DATE: 10/20/16 TIME: 15:28 Assessment/Plan VTE Prophylaxis VTE Prophylaxis Intervention: other (xarelto) Lines/Catheters IV [facility] Type (from [facility]): Saline Lock Urinary Cath still in place: No Assessment/Plan Assessment/Plan 1. Acute pulmonary embolism, xarelto 2. Asthma, stable 3. Diabetes mellitus, stable 4. HTN, stable Subjective 24 Hr Interval Summary Free Text/Dictation better on SOB Exam/Review of Systems Vital Signs Vitals Vital Signs Date Time Temp Pulse Resp B/P Pulse Ox O2 Delivery O2 Flow Rate FiO2 10/20/16 12:10 69 10/20/16 12:00 98.0 23 128/69 96 Nasal Cannula 3.0 10/19/16 21:59 21 Intake and Output 10/19/16 10/19/16 10/20/16 15:00 23:00 07:00 Intake Total 120 ml Balance 120 ml Exam Constitutional: alert, oriented, well developed Psych: nl mood/affect, no complaints Head: atraumatic, normocephalic Eyes: EOMI, PERRL, nl conjunctiva, nl lids, nl sclera ENMT: mucosa pink and moist, nl external ears & nose, nl lips & teeth, nl nasal mucosa & septum Neck: non-tender, supple Respiratory: clear to auscultation, normal air movement, No congested cough, No crackles/rales, No diminished breath sounds, No intercostal retraction, No labored breathing, No respirations, No tactile fremitus, No wheezing Cardiovascular: nl pulses, regular rate and rhythm, No S3, No S4, No bruits, No diastolic murmur, No edema, No gallop, No irregular rhythm, No jugular venous distention (JVD), No murmurs/extra sounds, No rub, No systolic murmur Gastrointestinal: nl liver, spleen, non-tender, soft, No ascites, No bowel sounds, No distended, No firm, No hepatomegaly, No mass , No rebound or guarding, No splenomegaly, No surgical scars, No tender Musculoskeletal: nl extremities to inspection Extremities: normal pulses Neurological: SERVICE AIDE II-XII intact, nl mental status, nl speech, nl strength Skin: nl turgor, rash or lesions Lymph: nl lymph nodes Results Result Diagram: 10/20/16 0553 10/20/16 0553 Results 24 hrs Laboratory Tests Test 10/19/16 22:23 10/19/16 23:41 10/20/16 05:53 10/20/16 08:14 Alanine Aminotransferase (ALT/SGPT) 27 31 Albumin 3.6 2.9 L Albumin/Globulin Ratio 1.05 1.00 Alkaline Phosphatase 60 50 Anion Gap 14 11 Aspartate Amino Transf (AST/SGOT) 26 24 Basophils # 0.0 0.0 Basophils % 0.2 0.1 Blood Urea Nitrogen 15 12 Calcium Level 9.0 8.3 L Carbon Dioxide Level 31 33 H Chloride Level 96 L 99 Creatinine 0.95 0.90 Direct Bilirubin 0.00 0.00 Eosinophils # 0.3 0.2 Eosinophils % 3.3 3.1 Globulin 3.40 H 2.90 Glucose Level 256 H 211 Hematocrit 38.1 32.9 L Hemoglobin 12.7 10.8 L INR International Normalized Ratio 1.03 Indirect Bilirubin 0.3 0.3 Lipase 91 Lymphocytes # 2.7 2.2 Lymphocytes % 26.0 29.2 Mean Corpuscular Hemoglobin 30.1 29.5 Mean Corpuscular Hemoglobin Concent 33.3 32.9 Mean Corpuscular Volume 90.3 89.5 Mean Platelet Volume 9.2 9.1 Monocytes # 0.7 0.6 Monocytes % 6.9 7.5 Neutrophils # 6.7 4.5 Neutrophils % 63.6 60.1 Nucleated Red Blood Cells # 0.0 0.0 Nucleated Red Blood Cells % 0.0 0.0 Platelet Count 227 186 Potassium Level 3.6 3.3 L Prothrombin Time 13.5 Prothrombin Time Ratio 1.1 Red Blood Count 4.22 3.67 L Red Cell Distribution Width 13.9 14.1 Sodium Level 137 140 Total Bilirubin 0.3 0.3 Total Protein 7.0 5.8 #L Troponin I 0.024 White Blood Count 10.5 7.5 # Arterial Blood HCO3 29.3 H Arterial Blood Base Excess 3.3 H Arterial Blood Oxygen Saturation 94.4 L Yared Test N/A Arterial Blood Gas Puncture Site Right Brachial Arterial Blood Carboxyhemoglobin 0.3 Arterial Blood Date Drawn 10/20/2016 12:13:37 AM Arterial Blood Methemoglobin 0.2 Arterial Blood pCO2 (Temp correct) 50.4 H Arterial Blood pH (Temp corrected) 7.382 Arterial Blood pO2 (Temp corrected) 72.7 L Blood Gas A-a O2 Differential 60.2 H Blood Gas Modality NASAL CANNULA Blood Gas Notified Time 10/20/2016 12:18:05 AM Blood Gas Notified Whom MG Blood Gas Specimen Source Blood arterial Blood Gas Temperature 37.0 FiO2 27.0 Oxyhemoglobin Percent 93.9 Total Hemoglobin 12.8 Activated Partial Thromboplast Time 26.9 Cholesterol Level 151 Cholesterol/HDL Ratio 2.9 Fasting Glucose 211 H HDL Cholesterol 51 Hemoglobin A1c 10.7 H LDL Cholesterol, Calculated 65 Magnesium Level 1.7 Triglycerides Level 174 H Bedside Glucose 193 Medications Medications Current Medications Albuterol (Ventolin Hfa) 2 puff Q4H PRN INH WHEEZING AND SOB; Start 10/20/16 at 02:30 Aspirin (Halfprin) 81 mg DAILY PO Last administered on 10/20/16 09:59; Admin Dose 81 MG; Start 10/20/16 at 09:00 Gabapentin (Neurontin) 300 mg BID PO Last administered on 10/20/16 10:06; Admin Dose 300 MG; Start 10/20/16 at 09:00 Diagnostic Test (Pha) (Accucheck) 1 ea 02 XX ; Start 10/21/16 at 02:00 Ondansetron HCl (Zofran Inj) 4 mg Q6H PRN IV NAUSEA AND/OR VOMITING; Start at 02:30 Acetaminophen (Tylenol Tab) 650 mg Q6H PRN PO PAIN AND OR ELEVATED TEMP Last administered on 10/20/16 09:37; Admin Dose 650 MG; Start 10/20/16 at 02:30 Miscellaneous Information 1 ea NOTE XX ; Start 10/20/16 at 03:00 Glucose (Glutose) 15 gm Q15M PRN PO DECREASED GLUCOSE; Start 10/20/16 at 03:00 Glucose (Glutose) 22.5 gm Q15M PRN PO DECREASED GLUCOSE; Start 10/20/16 at 03: 00 Dextrose (D50w Syringe) 25 ml Q15M PRN IV DECREASED GLUCOSE; Start 10/20/16 at 03:00 Dextrose (D50w Syringe) 50 ml Q15M PRN IV DECREASED GLUCOSE; Start 10/20/16 at 03:00 Glucagon (Glucagen) 1 mg Q15M PRN IM DECREASED GLUCOSE; Start 10/20/16 at 03:00 Glucose (Glutose) 15 gm Q15M PRN BUCCAL DECREASED GLUCOSE; Start 10/20/16 at 03 :00 Linagliptin (Tradjenta) 5 mg DAILY PO Last administered on 10/20/16 09:59; Admin Dose 5 MG; Start 10/20/16 at 09:00 Guaifenesin/ Codeine Phosphate (Robitussin Ac Liquid Cup) 10 ml Q4H PRN PO COUGH Last administered on 10/20/16 09:36; Admin Dose 10 ML; Start 10/20/16 at 03:00 Mometasone Furoate (Asmanex) 1 puff BID INH Last administered on 10/20/16 09: 00; Admin Dose 1 PUFF; Start 10/20/16 at 09:00 Heparin Sodium (Porcine) (Heparin (1000 Units/ml)) PRN PRN IV PENDING LAB VALUE; Start 10/20/16 at 08:30 Famotidine (Pepcid) 20 mg DAILY PO ; Start 10/21/16 at 09:00 NIKOLAS LESTER MD Oct 20, 2016 15:31
[2016-10-20] MEDS: RIVAROXABAN 15 MG TABLET PO SCH (17:40)
--- NOTE | 2016-10-20 17:49 | RADRPT ---
PROCEDURE: US bilateral lower extremity veins. CLINICAL INDICATION: Bilateral leg pain and swelling. Multiple bilateral pulmonary emboli. TECHNIQUE: Multiple longitudinal and transverse images of the bilateral lower extremity veins were obtained with hamilton scale and color Doppler imaging. The common femoral vein, femoral vein, and popl iteal vein were evaluated. 2D grayscale measurements with compression sonography, color Doppler, and pulsed Doppler with augmentation. COMPARISON: CT pulmonary angiogram dated 10/19/2016 which demonstrated multiple bilateral pulmonar y emboli. FINDINGS: The bilateral common femoral, femoral and popliteal veins are normally compressible throughout. Col or flow demonstrates normal filling of the vessels. Normal waveforms are visualized and there is no rmal response to augmentation. There is thrombus in the right posterior tibial vein, a calf vein. There is thrombus in the left posterior tibial vein and peroneal vein, which are both calf veins. IMPRESSION: 1. Bilateral calf vein thrombus. 2. The femoral and popliteal systems are normal with no deep venous thrombosis. 3. Follow-up bilateral lower extremity venous Doppler in 5 days is advised to evaluate for cephalad propagation of thrombus. RPTAT: QQ .Bulmaro Jung MD, Date Time Electronically viewed and signed by .Bulmaro Jung MD, on 10/20/2016 17:49 .R/
[2016-10-21] VITALS (12 sets, daily range): BP systolic 121–152; BP diastolic 56–70; PULSE 63–85; RESP 18–21
[2016-10-21] MEDS: ACCUCHECK XX SCH (02:00)
--- NOTE | 2016-10-21 06:54 | CONS ---
DATE OF ADMISSION: 10/20/2016 DATE OF CONSULTATION: TYPE OF CONSULTATION: Pulmonary. REASON FOR CONSULTATION: Pulmonary emboli. Thank you, Dr. Rios, for this consultation. HISTORY OF PRESENT ILLNESS: This is a 76-year-old lady, history of hypertension, hyperlipidemia, ca me in with several-day history of increasing cough, shortness of breath, no fever or chills, recent travel to [facility]. Upon evaluation in the emergency room, patient was mildly dyspneic but not sig nificantly hypoxic or hemodynamically ____. She underwent a CT pulmonary angiogram which showed arjun ateral pulmonary emboli and evidence of pulmonary hypertension. In addition, there were possible ea rly interstitial lung changes on the chest CT which I reviewed myself. PAST MEDICAL HISTORY: Moderate obesity, hypertension, hyperlipidemia, questionable history of asthm a. MEDICATIONS: Per chart. ALLERGIES: NONE. SOCIAL HISTORY: Nonsmoker, no alcohol, no history of drug use. FAMILY HISTORY: Noncontributory. SYSTEMS REVIEW: A 12-point review of systems negative other than that mentioned above. PHYSICAL EXAMINATION: GENERAL: Moderately obese lady, awake, alert, oriented, comfortable at rest. No acute distress. VITAL SIGNS: Currently afebrile, pulse is 70, blood pressure 119/57, O2 saturation 96% on 3 L nasal cannula. NECK: Supple. No JVD, lymphadenopathy. CARDIAC: S1, S2. No added sounds or murmurs. CHEST: Diminished air entry bilaterally. ABDOMEN: Soft, nontender. No guarding or rebound. EXTREMITIES: No cyanosis, clubbing, edema. NEUROLOGIC: Grossly intact. No focal deficits. LABORATORY DATA: White count 7.5, hemoglobin 10.8, platelets of 186. Hemoglobin A1c 10.7. ABG: P aO2 was 72. IMAGING: Chest CT was as above. IMPRESSION AND PLAN: 1. Acute pulmonary embolus. 2. Recent air travel. 3. Poorly controlled diabetes given hemoglobin A1c. 4. Morbid obesity. 5. Probable underlying obstructive sleep apnea. 6. Pulmonary hypertension, likely combination of pulmonary embolus and obstructive sleep apnea. The patient will require: 1. Continued anticoagulation. The patient now placed on Xarelto. 2. Lower extremity Dopplers to evaluate for deep vein thrombosis. If extensive clot burden, the pa tient should have IVC filter placed. 3. Arterial blood gas on room air to evaluate for need for supplemental O2. Dictated By: MODESTO WU/CALDERON Conf#: [id number] DID#: [id number]
[2016-10-21] MEDS: INSULIN ASPART [NOVOLOG] 3 ML PEN SC SCH ×4 (08:00→21:06)
[2016-10-21] MEDS: FAMOTIDINE 20 MG TAB PO SCH (08:47)
[2016-10-21] MEDS: ACETAMINOPHEN 325 MG TAB PO PRN (08:47)
[2016-10-21] MEDS: MOMETASONE 0.24 GM INHALER INH SCH ×2 (08:47→21:04)
[2016-10-21] MEDS: GUAIFENESIN/CODEINE 5ML CUP PO PRN ×2 (08:47→16:57)
[2016-10-21] MEDS: GABAPENTIN 300 MG CAP PO SCH ×2 (08:47→21:04)
[2016-10-21] MEDS: RIVAROXABAN 15 MG TABLET PO SCH ×2 (08:48→16:57)
[2016-10-21] MEDS: ASPIRIN (EC) 81 MG TAB PO SCH (08:48)
[2016-10-21] MEDS: LINAGLIPTIN 5 MG TABLET PO SCH (08:48)
[2016-10-21] MEDS: SUCRALFATE 1 GM TAB PO SCH ×4 (08:48→21:06)
[2016-10-21 10:28] LABS: AADO2 Arterial 43.7 mmHg (7.0-24.0); Allen Test ACCEPTAB; Arterial Base Excess 6.6 mmol/L (-3.0-3); Arterial COHb 0.3 % (0.0-3.0); Arterial Fraction of Oxyhgb 80.5 % (93.0-99.0); Arterial HCO3 32.4 mmol/L (22.0-26.0); Arterial MetHb 0.3 % (0.0-1.5); Arterial Total Hemglobin 10.2 g/dl (12.0-18.0); MODE ROOM AIR
--- NOTE | 2016-10-21 14:42 | PN ---
Date/Time of Note Date/Time of Note DATE: 10/21/16 TIME: 14:40 Assessment/Plan VTE Prophylaxis VTE Prophylaxis Intervention: other (Xarelto) Lines/Catheters IV [facility] Type [facility] Urinary Cath still in place: No Assessment/Plan Chief Complaint/Hosp Course Assessment and plan 1. Bilateral pulmonary embolism. Patient on Xarelto. Pulmonologists following. We'll get work station support specialist to follow. 2. Bilateral lower extremity DVT. Etiology unknown. Motor Grader Rough Grade to follow. Continue on Xarelto. Plan for IVC filter. 3. History of asthma. No active bronchospasm at this time. Continue on O2 as needed. Bronchodilators as needed. 4. Type 2 diabetes. Continue insulin regimen. Adjust as needed 5. Essential hypertension. We'll continue anti-hypertensives and adjust as needed Disposition and plan: Motor Grader Rough Grade follow. Plan for IVC filter. Continue inpatient monitoring Discussed but of care with Dr. Chin Problems: Subjective 24 Hr Interval Summary Free Text/Dictation still reports some shortness of breath Exam/Review of Systems Vital Signs Vitals Vital Signs Date Time Temp Pulse Resp B/P Pulse Ox O2 Delivery O2 Flow Rate FiO2 10/21/16 12:59 81 10/21/16 12:03 98.1 21 139/56 92 10/21/16 08:30 Nasal Cannula 4.0 10/19/16 21:59 21 Intake and Output 10/20/16 10/20/16 10/21/16 14:59 22:59 06:59 Intake Total 500 ml Balance 500 ml Exam General: No acute signs or symptoms of distress Eyes: pupils equal round, Anicteric sclera Neck: Supple nontender, no JVD Cardiac: S1, S2 auscultated, regular rhythm and rate Pulmonary: No coarse rhonchi or breathing auscultated GI: Abdomen soft nontender nondistended, bowel sounds active Extremities: Minimal edema left lower extremity Skin: Clean dry and intact Neurologic: Alert to person place and time and situation Results Result Diagram: 10/20/16 0553 10/20/16 0553 Results 24 hrs Laboratory Tests Test 10/20/16 18:32 10/20/16 21:17 10/21/16 08:00 10/21/16 08:55 Activated Partial Thromboplast Time 24.6 L Bedside Glucose 237 H 157 Arterial Blood HCO3 32.4 H Arterial Blood Base Excess 6.6 H Arterial Blood Oxygen Saturation 81.0 L Yared Test ACCEPTAB Arterial Blood Gas Puncture Site Right Radial Arterial Blood Carboxyhemoglobin 0.3 Arterial Blood Date Drawn 10/21/2016 10:10:07 AM Arterial Blood Methemoglobin 0.3 Arterial Blood pCO2 (Temp correct) 52.9 H Arterial Blood pH (Temp corrected) 7.405 Arterial Blood pO2 (Temp corrected) 42.7 *L Blood Gas A-a O2 Differential 43.7 H Blood Gas Critical Value Read Back Pepe FLORENCE RN Blood Gas Modality ROOM AIR Blood Gas Notified Time 10/21/2016 10:27:57 AM Blood Gas Notified Whom JLD Blood Gas Specimen Source Blood arterial Blood Gas Temperature 37.0 FiO2 21.0 Oxyhemoglobin Percent 80.5 L Total Hemoglobin 10.2 L Medications Medications Current Medications Albuterol (Ventolin Hfa) 2 puff Q4H PRN INH WHEEZING AND SOB Last administered on 10/21/16 08:47; Admin Dose 2 PUFF; Start 10/20/16 at 02:30 Aspirin (Halfprin) 81 mg DAILY PO Last administered on 10/21/16 08:48; Admin Dose 81 MG; Start 10/20/16 at 09:00 Gabapentin (Neurontin) 300 mg BID PO Last administered on 10/21/16 08:47; Admin Dose 300 MG; Start 10/20/16 at 09:00 Diagnostic Test (Pha) (Accucheck) 1 ea 02 XX ; Start 10/21/16 at 02:00 Ondansetron HCl (Zofran Inj) 4 mg Q6H PRN IV NAUSEA AND/OR VOMITING; Start at 02:30 Acetaminophen (Tylenol Tab) 650 mg Q6H PRN PO PAIN AND OR ELEVATED TEMP Last administered on 10/21/16 08:47; Admin Dose 650 MG; Start 10/20/16 at 02:30 Miscellaneous Information 1 ea NOTE XX ; Start 10/20/16 at 03:00 Glucose (Glutose) 15 gm Q15M PRN PO DECREASED GLUCOSE; Start 10/20/16 at 03:00 Glucose (Glutose) 22.5 gm Q15M PRN PO DECREASED GLUCOSE; Start 10/20/16 at 03: 00 Dextrose (D50w Syringe) 25 ml Q15M PRN IV DECREASED GLUCOSE; Start 10/20/16 at 03:00 Dextrose (D50w Syringe) 50 ml Q15M PRN IV DECREASED GLUCOSE; Start 10/20/16 at 03:00 Glucagon (Glucagen) 1 mg Q15M PRN IM DECREASED GLUCOSE; Start 10/20/16 at 03:00 Glucose (Glutose) 15 gm Q15M PRN BUCCAL DECREASED GLUCOSE; Start 10/20/16 at 03 :00 Linagliptin (Tradjenta) 5 mg DAILY PO Last administered on 10/21/16 08:48; Admin Dose 5 MG; Start 10/20/16 at 09:00 Guaifenesin/ Codeine Phosphate (Robitussin Ac Liquid Cup) 10 ml Q4H PRN PO COUGH Last administered on 10/21/16 08:47; Admin Dose 10 ML; Start 10/20/16 at 03:00 Mometasone Furoate (Asmanex) 1 puff BID INH Last administered on 10/21/16 08:47 ; Admin Dose 1 PUFF; Start 10/20/16 at 09:00 Famotidine (Pepcid) 20 mg DAILY PO Last administered on 10/21/16 08:47; Admin Dose 20 MG; Start 10/21/16 at 09:00 CARMINE ZUNIGA Oct 21, 2016 14:42
--- NOTE | 2016-10-21 14:43 | CONS ---
Date/Time of Note Date/Time of Note DATE: 10/21/16 TIME: 14:40 Consult Date/Type/Reason Admit Date/Time Oct 20, 2016 at 00:00 Initial Consult Date Type of Consultation: pulmonary Subjective Still has shortness breath on exertion Objective Vital Signs Date Time Temp Pulse Resp B/P Pulse Ox O2 Delivery O2 Flow Rate FiO2 10/21/16 12:59 81 10/21/16 12:03 98.1 21 139/56 92 10/21/16 08:30 Nasal Cannula 4.0 10/19/16 21:59 21 Intake and Output 10/20/16 10/20/16 10/21/16 15:00 23:00 07:00 Intake Total 500 ml Balance 500 ml PHYSICAL EXAMINATION: GENERAL: Moderately obese lady, awake, alert, oriented, comfortable at rest. No acute distress. VITAL SIGNS: As above NECK: Supple. No JVD, lymphadenopathy. CARDIAC: S1, S2. No added sounds or murmurs. CHEST: Diminished air entry bilaterally. ABDOMEN: Soft, nontender. No guarding or rebound. EXTREMITIES: No cyanosis, clubbing, edema. NEUROLOGIC: Grossly intact. No focal deficits. Results/Medications Result Diagram: 10/20/16 0553 10/20/16 0553 Results 24 hrs Lower extremity Dopplers Positive for deep vein thrombosis CT pulmonary angiogram Significant pulmonary emboli Laboratory Tests Test 10/20/16 18:32 10/20/16 21:17 10/21/16 08:00 10/21/16 08:55 Activated Partial Thromboplast Time 24.6 L Bedside Glucose 237 H 157 Arterial Blood HCO3 32.4 H Arterial Blood Base Excess 6.6 H Arterial Blood Oxygen Saturation 81.0 L Yared Test ACCEPTAB Arterial Blood Gas Puncture Site Right Radial Arterial Blood Carboxyhemoglobin 0.3 Arterial Blood Date Drawn 10/21/2016 10:10:07 AM Arterial Blood Methemoglobin 0.3 Arterial Blood pCO2 (Temp correct) 52.9 H Arterial Blood pH (Temp corrected) 7.405 Arterial Blood pO2 (Temp corrected) 42.7 *L Blood Gas A-a O2 Differential 43.7 H Blood Gas Critical Value Read Back Pepe FLORENCE RN Blood Gas Modality ROOM AIR Blood Gas Notified Time 10/21/2016 10:27:57 AM Blood Gas Notified Whom RANCHO Blood Gas Specimen Source Blood arterial Blood Gas Temperature 37.0 FiO2 21.0 Oxyhemoglobin Percent 80.5 L Total Hemoglobin 10.2 L Medications Current Medications Albuterol (Ventolin Hfa) 2 puff Q4H PRN INH WHEEZING AND SOB Last administered on 10/21/16 08:47; Admin Dose 2 PUFF; Start 10/20/16 at 02:30 Aspirin (Halfprin) 81 mg DAILY PO Last administered on 10/21/16 08:48; Admin Dose 81 MG; Start 10/20/16 at 09:00 Gabapentin (Neurontin) 300 mg BID PO Last administered on 10/21/16 08:47; Admin Dose 300 MG; Start 10/20/16 at 09:00 Diagnostic Test (Pha) (Accucheck) 1 ea 02 XX ; Start 10/21/16 at 02:00 Ondansetron HCl (Zofran Inj) 4 mg Q6H PRN IV NAUSEA AND/OR VOMITING; Start at 02:30 Acetaminophen (Tylenol Tab) 650 mg Q6H PRN PO PAIN AND OR ELEVATED TEMP Last administered on 10/21/16 08:47; Admin Dose 650 MG; Start 10/20/16 at 02:30 Miscellaneous Information 1 ea NOTE XX ; Start 10/20/16 at 03:00 Glucose (Glutose) 15 gm Q15M PRN PO DECREASED GLUCOSE; Start 10/20/16 at 03:00 Glucose (Glutose) 22.5 gm Q15M PRN PO DECREASED GLUCOSE; Start 10/20/16 at 03: 00 Dextrose (D50w Syringe) 25 ml Q15M PRN IV DECREASED GLUCOSE; Start 10/20/16 at 03:00 Dextrose (D50w Syringe) 50 ml Q15M PRN IV DECREASED GLUCOSE; Start 10/20/16 at 03:00 Glucagon (Glucagen) 1 mg Q15M PRN IM DECREASED GLUCOSE; Start 10/20/16 at 03:00 Glucose (Glutose) 15 gm Q15M PRN BUCCAL DECREASED GLUCOSE; Start 10/20/16 at 03 :00 Linagliptin (Tradjenta) 5 mg DAILY PO Last administered on 10/21/16 08:48; Admin Dose 5 MG; Start 10/20/16 at 09:00 Guaifenesin/ Codeine Phosphate (Robitussin Ac Liquid Cup) 10 ml Q4H PRN PO COUGH Last administered on 10/21/16 08:47; Admin Dose 10 ML; Start 10/20/16 at 03:00 Mometasone Furoate (Asmanex) 1 puff BID INH Last administered on 10/21/16 08:47 ; Admin Dose 1 PUFF; Start 10/20/16 at 09:00 Famotidine (Pepcid) 20 mg DAILY PO Last administered on 10/21/16 08:47; Admin Dose 20 MG; Start 10/21/16 at 09:00 Assessment/Plan Chief Complaint/Hosp Course IMPRESSION AND PLAN: 1. Acute pulmonary embolus and deep vein thrombosis 2. Recent air travel. 3. Poorly controlled diabetes given hemoglobin A1c. 4. Morbid obesity. 5. Probable underlying obstructive sleep apnea. 6. Pulmonary hypertension, likely combination of pulmonary embolus and obstructive sleep apnea. The patient will require: 1. Continued anticoagulation. The patient now placed on Xarelto. 2. May require IVC filter. We'll discuss with hematology oncology 3. Significant hypoxemia on room air will require home O2 4. Agree with malignancy workup would include CT abdomen and pelvis Problems: MO[facility]STO WANG [facility] Oct 21, 2016 14:43
--- NOTE | 2016-10-21 21:14 | CONS ---
Date/Time of Note Date/Time of Note DATE: 10/21/16 TIME: 21:01 Assessment/Plan Assessment/Plan Chief Complaint/Hosp Course 1. HYPERCOAGULABLE STATE Acute pulmonary embolus and deep vein thrombosis- BL Continued anticoagulation. The patient now placed on Xarelto. NO INDICATIONS FOR IVC filter AT PRESENT PROCEED WITH W-UP, INCLUDING CT abdomen and pelvis, to r/o malignancy , as well as tumor markers proceed with hypercoagulable profile 2. Recent air travel. 3. Poorly controlled diabetes given hemoglobin A1c. 4. Morbid obesity. 5. Probable underlying obstructive sleep apnea. 6. Pulmonary hypertension, likely combination of pulmonary embolus and obstructive sleep apnea. HYPOXIA- 2 TO # 1 Problems: Consultation Date/Type/Reason Admit Date/Time Oct 20, 2016 at 00:00 Date of Consultation: Oct 21, 2016 Type of Consultation: hemeonc Reason for Consultation PE,DVT Referring Provider: CARMINE ZUNIGA Hx of Present Illness This is a 76-year-old lady, history of hypertension, hyperlipidemia, came in with several-day history of increasing cough, shortness of breath, no fever or chills, recent travel to [facility]. Upon evaluation in the emergency room, patient was mildly dyspneic but not significantly hypoxic or hemodynamically unstable. She underwent a CT pulmonary angiogram which showed bilateral pulmonary emboli and evidence of pulmonary hypertension. In addition, there were possible early interstitial lung changes on the chest CT DOPPLER LE BL- POSITIVE FOR DVT PT WAS STARTED ON HEPARIN AND SWITCH TO XARELTO I WAS ASKED TO PROVIDE HEMEONC CONSULT PAST MEDICAL HISTORY: Moderate obesity, hypertension, hyperlipidemia, questionable history of asthma. MEDICATIONS: Per chart. ALLERGIES: NONE. SOCIAL HISTORY: Nonsmoker, no alcohol, no history of drug use. FAMILY HISTORY: Noncontributory. SYSTEMS REVIEW: A 12-point review of systems negative other than that mentioned above. Psychological: nl mood/affect, no complaints Past Medical History Medical History: diabetes, hypertension, other (asthma) Past Surgical History Past Surgical Hx: other (abdominal surgery) Social History Alcohol Use: none Smoking Status: Never smoker Drug Use: none Exam/Review of Systems Vital Signs Vitals Vital Signs Date Time Temp Pulse Resp B/P Pulse Ox O2 Delivery O2 Flow Rate FiO2 10/21/16 20:50 98.4 85 18 138/59 94 10/21/16 08:30 Nasal Cannula 4.0 1/30/17 21:59 21 Intake and Output 10/20/16 10/20/16 10/21/16 15:00 23:00 07:00 Intake Total 500 ml Balance 500 ml Exam PHYSICAL EXAMINATION: GENERAL: Moderately obese lady, awake, alert, oriented, comfortable at rest. No acute distress. NECK: Supple. No JVD, lymphadenopathy. CARDIAC: S1, S2. No added sounds or murmurs. CHEST: Diminished air entry bilaterally. ABDOMEN: Soft, nontender. No guarding or rebound. EXTREMITIES: No cyanosis, clubbing, edema. NEUROLOGIC: Grossly intact. No focal deficits. Results Result Diagram: 10/20/16 0553 10/20/16 0553 Results 24 hrs Laboratory Tests Test 10/20/16 21:17 10/21/16 08:00 10/21/16 08:55 10/21/16 20:14 Bedside Glucose 237 H 157 285 H Arterial Blood HCO3 32.4 H Arterial Blood Base Excess 6.6 H Arterial Blood Oxygen Saturation 81.0 L Yared Test ACCEPTAB Arterial Blood Gas Puncture Site Right Radial Arterial Blood Carboxyhemoglobin 0.3 Arterial Blood Date Drawn 10/21/2016 10:10:07 AM Arterial Blood Methemoglobin 0.3 Arterial Blood pCO2 (Temp correct) 52.9 H Arterial Blood pH (Temp corrected) 7.405 Arterial Blood pO2 (Temp corrected) 42.7 *L Blood Gas A-a O2 Differential 43.7 H Blood Gas Critical Value Read Back Pepe FLORNECE RN Blood Gas Modality ROOM AIR Blood Gas Notified Time 10/21/2016 10:27:57 AM Blood Gas Notified Whom NOAMD Blood Gas Specimen Source Blood arterial Blood Gas Temperature 37.0 FiO2 21.0 Oxyhemoglobin Percent 80.5 L Total Hemoglobin 10.2 L Medications Medications Current Medications Albuterol (Ventolin Hfa) 2 puff Q4H PRN INH WHEEZING AND SOB Last administered on 10/21/16 08:47; Admin Dose 2 PUFF; Start 10/20/16 at 02:30 Aspirin (Halfprin) 81 mg DAILY PO Last administered on 10/21/16 08:48; Admin Dose 81 MG; Start 10/20/16 at 09:00 Gabapentin (Neurontin) 300 mg BID PO Last administered on 10/21/16 08:47; Admin Dose 300 MG; Start 10/20/16 at 09:00 Diagnostic Test (Pha) (Accucheck) 1 ea 02 XX ; Start 10/21/16 at 02:00 Ondansetron HCl (Zofran Inj) 4 mg Q6H PRN IV NAUSEA AND/OR VOMITING; Start at 02:30 Acetaminophen (Tylenol Tab) 650 mg Q6H PRN PO PAIN AND OR ELEVATED TEMP Last administered on 10/21/16 08:47; Admin Dose 650 MG; Start 10/20/16 at 02:30 Miscellaneous Information 1 ea NOTE XX ; Start 10/20/16 at 03:00 Glucose (Glutose) 15 gm Q15M PRN PO DECREASED GLUCOSE; Start 10/20/16 at 03:00 Glucose (Glutose) 22.5 gm Q15M PRN PO DECREASED GLUCOSE; Start 10/20/16 at 03: 00 Dextrose (D50w Syringe) 25 ml Q15M PRN IV DECREASED GLUCOSE; Start 10/20/16 at 03:00 Dextrose (D50w Syringe) 50 ml Q15M PRN IV DECREASED GLUCOSE; Start 10/20/16 at 03:00 Glucagon (Glucagen) 1 mg Q15M PRN IM DECREASED GLUCOSE; Start 10/20/16 at 03:00 Glucose (Glutose) 15 gm Q15M PRN BUCCAL DECREASED GLUCOSE; Start 10/20/16 at 03 :00 Linagliptin (Tradjenta) 5 mg DAILY PO Last administered on 10/21/16 08:48; Admin Dose 5 MG; Start 10/20/16 at 09:00 Guaifenesin/ Codeine Phosphate (Robitussin Ac Liquid Cup) 10 ml Q4H PRN PO COUGH Last administered on 10/21/16 16:57; Admin Dose 10 ML; Start 10/20/16 at 03:00 Mometasone Furoate (Asmanex) 1 puff BID INH Last administered on 10/21/16 08:47 ; Admin Dose 1 PUFF; Start 10/20/16 at 09:00 Famotidine (Pepcid) 20 mg DAILY PO Last administered on 10/21/16 08:47; Admin Dose 20 MG; Start 10/21/16 at 09:00 CARLOTTA DOMINGUEZ MD Oct 21, 2016 21:12
[2016-10-21 22:26] LABS: LACTATE DEHYDROGENASE 633 IU/L (313-618)
[2016-10-21 22:52] LABS: IRON 37 ug/dl (35-150)
[2016-10-21 22:58] LABS: CANCER ANTIGEN 125 19.8 U/ml (0.0-35.0); CARCINOEMBRYONIC ANTIGEN 4.3 ng/ml (0.0-5.0)
[2016-10-21 23:01] LABS: TOTAL IRON BINDING CAPACITY 312 ug/dl (241-421)
[2016-10-21 23:07] LABS: CANCER ANTIGEN 19-9 < 1.4 U/ml (0.0-37.0)
[2016-10-22] VITALS (13 sets, daily range): BP systolic 120–169; BP diastolic 58–79; PULSE 7–81; RESP 18–22
[2016-10-22] MEDS: ACCUCHECK XX SCH (02:00)
[2016-10-22 07:55] LABS: BASOPHILS % 0.2 % (0.0-2.0); EOSINOPHILS # 0.4 10^3/ul (0.0-0.5); EOSINOPHILS % 6.3 % (0.0-7.0); HEMATOCRIT 33.6 % (37.0-47.0); HEMOGLOBIN 11.4 g/dl (12.0-16.0); LYMPHOCYTES # 1.9 10^3/ul (0.8-2.9); LYMPHOCYTES % 28.5 % (15.0-51.0); MEAN CORPUSCULAR HEMOGLOBIN 30.5 pg (29.0-33.0); MEAN CORPUSCULAR HGB CONC 33.9 g/dl (32.0-37.0); MEAN PLATELET VOLUME 9.3 fl (7.4-10.4); MONOCYTE # 0.6 10^3/ul (0.3-0.9); NEUTROPHIL # 3.7 10^3/ul (1.6-7.5); PLATELET COUNT 188 10^3/UL (140-440); RED BLOOD COUNT 3.73 10^6/ul (4.20-5.40); RED CELL DISTRIBUTION WIDTH 14.1 % (11.5-14.5); UNCORRECTED WBC 6.6 10^3/ul (4.8-10.8); WHITE BLOOD COUNT 6.6 10^3/ul (4.8-10.8)
[2016-10-22 07:57] LABS: POTASSIUM 3.8 mmol/L (3.5-5.1)
[2016-10-22 08:00] LABS: CALCIUM 8.7 mg/dl (8.4-10.2); CREATININE 0.86 mg/dl (0.44-1.00)
[2016-10-22] MEDS: INSULIN ASPART [NOVOLOG] 3 ML PEN SC SCH ×4 (08:00→20:54)
[2016-10-22] MEDS: GABAPENTIN 300 MG CAP PO SCH ×2 (08:03→20:52)
[2016-10-22] MEDS: RIVAROXABAN 15 MG TABLET PO SCH ×2 (08:03→17:20)
[2016-10-22] MEDS: FAMOTIDINE 20 MG TAB PO SCH (08:03)
[2016-10-22] MEDS: LINAGLIPTIN 5 MG TABLET PO SCH (08:03)
[2016-10-22] MEDS: SUCRALFATE 1 GM TAB PO SCH ×4 (08:03→20:52)
[2016-10-22] MEDS: MOMETASONE 0.24 GM INHALER INH SCH ×2 (08:03→20:52)
[2016-10-22] MEDS: GUAIFENESIN/CODEINE 5ML CUP PO PRN ×2 (08:03→16:00)
[2016-10-22] MEDS: ASPIRIN (EC) 81 MG TAB PO SCH (08:03)
[2016-10-22 08:06] LABS: CONDITION 1
--- NOTE | 2016-10-22 12:12 | CONS ---
Date/Time of Note Date/Time of Note DATE: 10/22/16 TIME: 12:06 Consult Date/Type/Reason Admit Date/Time Oct 20, 2016 at 00:00 Type of Consultation: pulmonary Ordering Provider: CARMINE ZUNIGA Subjective Patient stable this morning on nasal cannula denies shortness of breath Objective Vital Signs Date Time Temp Pulse Resp B/P Pulse Ox O2 Delivery O2 Flow Rate FiO2 10/22/16 08:15 75 10/22/16 08:02 99.2 22 139/64 91 10/22/16 04:51 2.0 10/21/16 21:00 Nasal Cannula 10/19/16 21:59 21 Intake and Output 10/21/16 10/21/16 10/22/16 15:00 23:00 07:00 Intake Total 600 ml 400 ml Balance 600 ml 400 ml PHYSICAL EXAMINATION: GENERAL: Moderately obese lady, awake, alert, oriented, comfortable at rest. No acute distress. VITAL SIGNS: As above NECK: Supple. No JVD, lymphadenopathy. CARDIAC: S1, S2. No added sounds or murmurs. CHEST: Diminished air entry bilaterally. ABDOMEN: Soft, nontender. No guarding or rebound. EXTREMITIES: No cyanosis, clubbing, edema. NEUROLOGIC: Grossly intact. No focal deficits. Results/Medications Result Diagram: 10/22/1615 10/22/1615 Results 24 hrs Laboratory Tests Test 10/21/16 20:14 10/21/16 21:50 10/22/16 06:15 10/22/16 07:27 Bedside Glucose 285 H 140 CA 125 Antigen 19.8 CA 19-9 Antigen < 1.4 Carcinoembryonic Antigen 4.3 Erythrocyte Sedimentation Rate 35 H Ferritin Pending Folate Pending Iron Level 37 Lactate Dehydrogenase 633 H Percent Iron Saturation 12 L Thyroid Stimulating Hormone (TSH) Pending Total Iron Binding Capacity 312 Vitamin B12 Level Pending Anion Gap 11 Basophils # 0.0 Basophils % 0.2 Blood Urea Nitrogen 11 Calcium Level 8.7 Carbon Dioxide Level 35 H Chloride Level 98 Creatinine 0.86 Eosinophils # 0.4 Eosinophils % 6.3 Glucose Level 154 Hematocrit 33.6 L Hemoglobin 11.4 L Lymphocytes # 1.9 Lymphocytes % 28.5 Mean Corpuscular Hemoglobin 30.5 Mean Corpuscular Hemoglobin Concent 33.9 Mean Corpuscular Volume 90.0 Mean Platelet Volume 9.3 Monocytes # 0.6 Monocytes % 9.0 Neutrophils # 3.7 Neutrophils % 56.0 Nucleated Red Blood Cells # 0.0 Nucleated Red Blood Cells % 0.0 Platelet Count 188 Potassium Level 3.8 Red Blood Count 3.73 L Red Cell Distribution Width 14.1 Sodium Level 140 White Blood Count 6.6 Medications Current Medications Albuterol (Ventolin Hfa) 2 puff Q4H PRN INH WHEEZING AND SOB Last administered on 10/21/16 08:47; Admin Dose 2 PUFF; Start 10/20/16 at 02:30 Aspirin (Halfprin) 81 mg DAILY PO Last administered on 10/22/16 08:03; Admin Dose 81 MG; Start 10/20/16 at 09:00 Gabapentin (Neurontin) 300 mg BID PO Last administered on 10/22/16 08:03; Admin Dose 300 MG; Start 10/20/16 at 09:00 Diagnostic Test (Pha) (Accucheck) 1 ea 02 XX Last administered on 10/22/16 02: 00; Admin Dose 1 EA; Start 10/21/16 at 02:00 Ondansetron HCl (Zofran Inj) 4 mg Q6H PRN IV NAUSEA AND/OR VOMITING; Start at 02:30 Acetaminophen (Tylenol Tab) 650 mg Q6H PRN PO PAIN AND OR ELEVATED TEMP Last administered on 10/21/16 08:47; Admin Dose 650 MG; Start 10/20/16 at 02:30 Miscellaneous Information 1 ea NOTE XX ; Start 10/20/16 at 03:00 Glucose (Glutose) 15 gm Q15M PRN PO DECREASED GLUCOSE; Start 10/20/16 at 03:00 Glucose (Glutose) 22.5 gm Q15M PRN PO DECREASED GLUCOSE; Start 10/20/16 at 03: 00 Dextrose (D50w Syringe) 25 ml Q15M PRN IV DECREASED GLUCOSE; Start 10/20/16 at 03:00 Dextrose (D50w Syringe) 50 ml Q15M PRN IV DECREASED GLUCOSE; Start 10/20/16 at 03:00 Glucagon (Glucagen) 1 mg Q15M PRN IM DECREASED GLUCOSE; Start 10/20/16 at 03:00 Glucose (Glutose) 15 gm Q15M PRN BUCCAL DECREASED GLUCOSE; Start 1/31/17 at 03 :00 Linagliptin (Tradjenta) 5 mg DAILY PO Last administered on 10/22/16 08:03; Admin Dose 5 MG; Start 10/20/16 at 09:00 Guaifenesin/ Codeine Phosphate (Robitussin Ac Liquid Cup) 10 ml Q4H PRN PO COUGH Last administered on 10/22/16 08:03; Admin Dose 10 ML; Start 10/20/16 at 03:00 Mometasone Furoate (Asmanex) 1 puff BID INH Last administered on 10/22/16 08:03 ; Admin Dose 1 PUFF; Start 10/20/16 at 09:00 Famotidine (Pepcid) 20 mg DAILY PO Last administered on 10/22/16 08:03; Admin Dose 20 MG; Start 10/21/16 at 09:00 Assessment/Plan Chief Complaint/Hosp Course IMPRESSION AND PLAN: 1. Acute pulmonary embolus and deep vein thrombosis 2. Recent air travel. 3. Poorly controlled diabetes given hemoglobin A1c. 4. Morbid obesity. 5. Probable underlying obstructive sleep apnea. 6. Pulmonary hypertension, likely combination of pulmonary embolus and obstructive sleep apnea. The patient will require: 1. Continued anticoagulation. The patient now placed on Xarelto. 2. Would hold off IVC filter placement as DVTs were below knee 3. Agree with malignancy workup would include CT abdomen and pelvis Consider discharge soon with outpatient workup for malignancy Problems: MODESTO WANG [facility], [facility] Oct 22, 2016 12:12
[2016-10-22] MEDS ORDERED: RIVA20TA PO (12:46)
[2016-10-22] MEDS ORDERED: RIVA15TA PO (12:46)
[2016-10-22] MEDS ORDERED: SOD CHLORIDE 0.9% 100 ML ONE (12:49)
[2016-10-22] MEDS ORDERED: IODIXANOL LOCM 100 ML BTL ONE (12:49)
[2016-10-22 13:17] LABS: FERRITIN 44.5 ng/ml (11.1-264.0)
[2016-10-22 13:48] LABS: FOLATE 8.8 ng/ml (2.8-20.0)
[2016-10-22 14:32] LABS: AADO2 Arterial 36.7 mmHg (7.0-24.0); Allen Test ACCEPTAB; Arterial Base Excess 8.2 mmol/L (-3.0-3); Arterial COHb 0.1 % (0.0-3.0); Arterial Fraction of Oxyhgb 78.5 % (93.0-99.0); Arterial MetHb 0.4 % (0.0-1.5); Arterial Total Hemglobin 12.6 g/dl (12.0-18.0); MODE ROOM AIR
--- NOTE | 2016-10-22 14:45 | PDOCDIS ---
Discharge Instructions DIAGNOSIS Discharge Diagnosis: 1. Bilateral pulmonary embolism 2. Bilateral lower extremity DVT 3. Asthma CONDITION Patient Condition: Stable HOME CARE INSTRUCTIONS: Diet Instructions: Low Fat /CholesterolSpecial Diet: carbohydrate controlled FOLLOW UP/APPOINTMENTS Appointments 1. Follow-up with Dr. Abel Vasquez in one week 2. Follow up with Dr. Jesica Ngo in one week CARMINE ZUNIGA Oct 22, 2016 14:45
--- NOTE | 2016-10-22 14:53 | PN ---
Date/Time of Note Date/Time of Note DATE: 10/22/16 TIME: 14:50 Assessment/Plan VTE Prophylaxis VTE Prophylaxis Intervention: other (xarelto) Lines/Catheters IV [facility] Urinary Cath still in place: No Assessment/Plan Chief Complaint/Hosp Course Assessment and plan 1. Bilateral pulmonary embolism. Patient on Xarelto. Pulmonologists following. continue hematology workup 2. Bilateral lower extremity DVT. Etiology unknown. cont with hematology recs. Continue on Xarelto. no IVC filter per hematology 3. History of asthma. No active bronchospasm at this time. Continue on O2 as needed. Bronchodilators as needed. 4. Type 2 diabetes. Continue insulin regimen. Adjust as needed 5. Essential hypertension. We'll continue anti-hypertensives and adjust as needed Disposition and plan: patient still hypoxic off o2. Plan for home with o2. Will follow up with case management. d/c when cleared by consultants Discussed but of care with Dr. Chin Problems: Subjective 24 Hr Interval Summary Free Text/Dictation resting at this time. still with some shortness of breath Exam/Review of Systems Vital Signs Vitals Vital Signs Date Time Temp Pulse Resp B/P Pulse Ox O2 Delivery O2 Flow Rate FiO2 10/22/16 12:38 73 10/22/16 12:25 99.2 21 126/61 97 10/22/16 08:30 Nasal Cannula 4.0 10/19/16 21:59 21 Intake and Output 10/21/16 10/21/16 10/22/16 14:59 22:59 06:59 Intake Total 600 ml 400 ml Balance 600 ml 400 ml Exam General: No acute signs or symptoms of distress Eyes: pupils equal round, Anicteric sclera Neck: Supple nontender, no JVD Cardiac: S1, S2 auscultated, regular rhythm and rate Pulmonary: No coarse rhonchi or breathing auscultated GI: Abdomen soft nontender nondistended, bowel sounds active Extremities: Minimal edema left lower extremity Skin: Clean dry and intact Neurologic: Alert to person place and time and situation Results Result Diagram: 10/22/16 0615 10/22/16 0615 Results 24 hrs Laboratory Tests Test 10/21/16 20:14 10/21/16 21:50 10/22/16 06:15 10/22/16 07:27 Bedside Glucose 285 H 140 CA 125 Antigen 19.8 CA 19-9 Antigen < 1.4 Carcinoembryonic Antigen 4.3 Erythrocyte Sedimentation Rate 35 H Ferritin 44.5 Folate 8.8 Iron Level 37 Lactate Dehydrogenase 633 H Percent Iron Saturation 12 L Thyroid Stimulating Hormone (TSH) 3.370 Total Iron Binding Capacity 312 Vitamin B12 Level 288 Anion Gap 11 Basophils # 0.0 Basophils % 0.2 Blood Urea Nitrogen 11 Calcium Level 8.7 Carbon Dioxide Level 35 H Chloride Level 98 Creatinine 0.86 Eosinophils # 0.4 Eosinophils % 6.3 Glucose Level 154 Hematocrit 33.6 L Hemoglobin 11.4 L Lymphocytes # 1.9 Lymphocytes % 28.5 Mean Corpuscular Hemoglobin 30.5 Mean Corpuscular Hemoglobin Concent 33.9 Mean Corpuscular Volume 90.0 Mean Platelet Volume 9.3 Monocytes # 0.6 Monocytes % 9.0 Neutrophils # 3.7 Neutrophils % 56.0 Nucleated Red Blood Cells # 0.0 Nucleated Red Blood Cells % 0.0 Platelet Count 188 Potassium Level 3.8 Red Blood Count 3.73 L Red Cell Distribution Width 14.1 Sodium Level 140 White Blood Count 6.6 Test 10/22/16 14:00 Arterial Blood HCO3 35.0 H Arterial Blood Base Excess 8.2 H Arterial Blood Oxygen Saturation 78.9 L Yared Test ACCEPTAB Arterial Blood Gas Puncture Site Left Radial Arterial Blood Carboxyhemoglobin 0.1 Arterial Blood Date Drawn 10/22/2016 2:20:14 PM Arterial Blood Methemoglobin 0.4 Arterial Blood pCO2 (Temp correct) 59.5 H Arterial Blood pH (Temp corrected) 7.388 Arterial Blood pO2 (Temp corrected) 41.8 *L Blood Gas A-a O2 Differential 36.7 H Blood Gas Critical Value Read Back Pepe FLORENCE RN Blood Gas Modality ROOM AIR Blood Gas Notified Time 10/22/2016 2:32:29 PM Blood Gas Notified Whom RANCHO Blood Gas Specimen Source Blood arterial Blood Gas Temperature 37.0 FiO2 21.0 Oxyhemoglobin Percent 78.5 L Total Hemoglobin 12.6 Medications Medications Current Medications Albuterol (Ventolin Hfa) 2 puff Q4H PRN INH WHEEZING AND SOB Last administered on 10/21/16 08:47; Admin Dose 2 PUFF; Start 10/20/16 at 02:30 Aspirin (Halfprin) 81 mg DAILY PO Last administered on 10/22/16 08:03; Admin Dose 81 MG; Start 10/20/16 at 09:00 Gabapentin (Neurontin) 300 mg BID PO Last administered on 10/22/16 08:03; Admin Dose 300 MG; Start 10/20/16 at 09:00 Diagnostic Test (Pha) (Accucheck) 1 ea 02 XX Last administered on 10/22/16 02: 00; Admin Dose 1 EA; Start 10/21/16 at 02:00 Ondansetron HCl (Zofran Inj) 4 mg Q6H PRN IV NAUSEA AND/OR VOMITING; Start at 02:30 Acetaminophen (Tylenol Tab) 650 mg Q6H PRN PO PAIN AND OR ELEVATED TEMP Last administered on 10/21/16 08:47; Admin Dose 650 MG; Start 10/20/16 at 02:30 Miscellaneous Information 1 ea NOTE XX ; Start 10/20/16 at 03:00 Glucose (Glutose) 15 gm Q15M PRN PO DECREASED GLUCOSE; Start 10/20/16 at 03:00 Glucose (Glutose) 22.5 gm Q15M PRN PO DECREASED GLUCOSE; Start 10/20/16 at 03: 00 Dextrose (D50w Syringe) 25 ml Q15M PRN IV DECREASED GLUCOSE; Start 10/20/16 at 03:00 Dextrose (D50w Syringe) 50 ml Q15M PRN IV DECREASED GLUCOSE; Start 10/20/16 at 03:00 Glucagon (Glucagen) 1 mg Q15M PRN IM DECREASED GLUCOSE; Start 10/20/16 at 03:00 Glucose (Glutose) 15 gm Q15M PRN BUCCAL DECREASED GLUCOSE; Start 10/20/16 at 03 :00 Linagliptin (Tradjenta) 5 mg DAILY PO Last administered on 10/22/16 08:03; Admin Dose 5 MG; Start 10/20/16 at 09:00 Guaifenesin/ Codeine Phosphate (Robitussin Ac Liquid Cup) 10 ml Q4H PRN PO COUGH Last administered on 10/22/16 08:03; Admin Dose 10 ML; Start 10/20/16 at 03:00 Mometasone Furoate (Asmanex) 1 puff BID INH Last administered on 10/22/16 08:03 ; Admin Dose 1 PUFF; Start 10/20/16 at 09:00 Famotidine (Pepcid) 20 mg DAILY PO Last administered on 10/22/16t 08:03; Admin Dose 20 MG; Start 10/21/16 at 09:00 CARMINE ZUNIGA Oct 22, 2016 14:53
--- NOTE | 2016-10-22 16:10 | RADRPT ---
PROCEDURE: CT Abdomen and Pelvis with Contrast CLINICAL INDICATION: Staging TECHNIQUE: Transaxial images were obtained through the abdomen and pelvis on a multi-slice scanner following the intravenous administration of iodinated contrast. No oral contrast had previously be en given. Sagittal and coronal re-formations were subsequently reconstructed. One or more of the following dose reduction techniques were used: - Automated exposure control. - Adjustment of the mA and/or kV according to patient size. - Use of iterative reconstruction technique. Radiation dose: CTDIvol = 22.02 mGy; DLP = 1242.66 mGy-cm. COMPARISON: No prior studies are available for comparison. FINDINGS: Lung bases: Reticular changes are seen at the lung bases, to a greater extent on the left than the r ight. No effusion is identified. Liver: Normal in size and in attenuation. There is no focal lesion. The hepatic veins and portal vei ns appear patent. Gallbladder: The gallbladder is not identified. Bile ducts: There is mild intrahepatic and moderate extrahepatic biliary duct dilatation with the co mmon bile duct measuring 1.6 cm to the head of the pancreas. No choledocholith is evident. Pancreas: The pancreatic duct is mildly dilated to approximately 2.5 mm in cross diameter, but no pa ncreatic mass or inflammation is evident. Spleen: Normal in size with no focal lesion. Adrenals: Normal with no mass identified. Kidneys, ureters and bladder: Multiple bilateral renal cysts are identified with the largest on the right measuring 5.2 cm in diameter and the largest on the left measuring 3.8 cm in diameter. There is no hydronephrosis. No intra renal calcification is evident. The ureters are not dilated. The b ladder appears unremarkable. Reproductive organs: The uterus is absent and no adnexal mass is evident. Stomach, bowel, and mesentery: Substantial stool is seen within the colon but there is no evidence o f bowel obstruction or inflammation. The stomach appears unremarkable. Appendix: The vermiform appendix is not identified. Peritoneum: No free intraperitoneal fluid or air is identified. There is a moderate-sized right maura umbilical fat-containing hernia. Aorta: Normal in caliber with no aneurysmal dilatation. IVC: Unremarkable. Lymph nodes: No pathologically enlarged nodes are identified. Osseous structures: Moderate degenerative spine and disk changes are noted. Soft tissues: Several calcific densities are seen within the central anterior abdominal wall. Injec tion site granulomas are seen in the gluteal regions. IMPRESSION: 1. The gallbladder is not identified and presumably is surgically absent. There is mild intrahepat ic and moderate extrahepatic bile duct dilatation with the common bile duct measuring 1.6 cm to the head of the pancreas. The pancreas is unremarkable except for mild dilatation of the pancreatic farzad t which measures 2.5 mm in cross diameter. This may be a sequelae of chronic pancreatitis. No chol edocholith is evident.. Clinical and laboratory correlation is indicated to exclude biliary outflow obstruction. 2. Multiple bilateral renal cysts are evident without hydronephrosis or ureterolithiasis. The blad samson appears unremarkable. 3. There is substantial stool within the colon without evidence of bowel obstruction or inflammatio n. The vermiform appendix is not identified. 4. Status post hysterectomy with no adnexal mass evident. 5. There is a fat-containing right periumbilical hernia. Multiple calcific densities are seen at t he midline of the anterior abdominal wall which may be related to previous surgery. 6. Degenerative spine and disk changes. 7. Discoid atelectasis is noted within the posterior lung bases. Physician Moody Date Time Electronically viewed and signed by Physician Moody on 10/22/2016 16:10 /
--- NOTE | 2016-10-22 17:58 | CONS ---
Date/Time of Note Date/Time of Note DATE: 10/22/16 TIME: 17:58 Assessment/Plan Assessment/Plan Chief Complaint/Hosp Course 1. HYPERCOAGULABLE STATE Acute pulmonary embolus and deep vein thrombosis- BL Continued anticoagulation. The patient now placed on Xarelto. NO INDICATIONS FOR IVC filter AT PRESENT CT abdomen and pelvis- NEG tumor markers- N COMPLETE hypercoagulable profile 2. Recent air travel. 3. Poorly controlled diabetes given hemoglobin A1c. 4. Morbid obesity. 5. Probable underlying obstructive sleep apnea. 6. Pulmonary hypertension, likely combination of pulmonary embolus and obstructive sleep apnea. HYPOXIA- 2 TO # 1 Problems: Consultation Date/Type/Reason Admit Date/Time Oct 20, 2016 at 00:00 Initial Consult Date 10/21/16 Referring Provider: CARMINE ZUNIGA 24 HR Interval Summary Free Text/Dictation ALL NOTED NO NEW EVENTS W-UP IN PROGRESS Exam/Review of Systems Vital Signs Vitals Vital Signs Date Time Temp Pulse Resp B/P Pulse Ox O2 Delivery O2 Flow Rate FiO2 10/22/16 17:34 2.0 10/22/16 16:31 75 10/22/16 16:01 98.7 19 120/58 95 10/22/16 08:30 Nasal Cannula 10/19/16 21:59 21 Intake and Output 10/21/16 10/21/16 10/22/16 15:00 23:00 07:00 Intake Total 600 ml 400 ml Balance 600 ml 400 ml Exam GENERAL: Moderately obese lady, awake, alert, oriented, comfortable at rest. No acute distress. VITAL SIGNS: As above NECK: Supple. No JVD, lymphadenopathy. CARDIAC: S1, S2. No added sounds or murmurs. CHEST: Diminished air entry bilaterally. ABDOMEN: Soft, nontender. No guarding or rebound. EXTREMITIES: No cyanosis, clubbing, edema. NEUROLOGIC: Grossly intact. No focal deficits. Results Result Diagram: 10/22/16 0615 10/22/16 0615 Results 24 hrs Laboratory Tests Test 10/21/16 20:14 10/21/16 21:50 10/22/16 06:15 10/22/16 07:27 Bedside Glucose 285 H 140 CA 125 Antigen 19.8 CA 19-9 Antigen < 1.4 Carcinoembryonic Antigen 4.3 Erythrocyte Sedimentation Rate 35 H Ferritin 44.5 Folate 8.8 Iron Level 37 Lactate Dehydrogenase 633 H Percent Iron Saturation 12 L Thyroid Stimulating Hormone (TSH) 3.370 Total Iron Binding Capacity 312 Vitamin B12 Level 288 Anion Gap 11 Basophils # 0.0 Basophils % 0.2 Blood Urea Nitrogen 11 Calcium Level 8.7 Carbon Dioxide Level 35 H Chloride Level 98 Creatinine 0.86 Eosinophils # 0.4 Eosinophils % 6.3 Glucose Level 154 Hematocrit 33.6 L Hemoglobin 11.4 L Lymphocytes # 1.9 Lymphocytes % 28.5 Mean Corpuscular Hemoglobin 30.5 Mean Corpuscular Hemoglobin Concent 33.9 Mean Corpuscular Volume 90.0 Mean Platelet Volume 9.3 Monocytes # 0.6 Monocytes % 9.0 Neutrophils # 3.7 Neutrophils % 56.0 Nucleated Red Blood Cells # 0.0 Nucleated Red Blood Cells % 0.0 Platelet Count 188 Potassium Level 3.8 Red Blood Count 3.73 L Red Cell Distribution Width 14.1 Sodium Level 140 White Blood Count 6.6 Test 10/22/16 14:00 Arterial Blood HCO3 35.0 H Arterial Blood Base Excess 8.2 H Arterial Blood Oxygen Saturation 78.9 L Yared Test ACCEPTAB Arterial Blood Gas Puncture Site Left Radial Arterial Blood Carboxyhemoglobin 0.1 Arterial Blood Date Drawn 10/22/2016 2:20:14 PM Arterial Blood Methemoglobin 0.4 Arterial Blood pCO2 (Temp correct) 59.5 H Arterial Blood pH (Temp corrected) 7.388 Arterial Blood pO2 (Temp corrected) 41.8 *L Blood Gas A-a O2 Differential 36.7 H Blood Gas Critical Value Read Back Pepe FLORENCE RN Blood Gas Modality ROOM AIR Blood Gas Notified Time 10/22/2016 2:32:29 PM Blood Gas Notified Whom RANCHO Blood Gas Specimen Source Blood arterial Blood Gas Temperature 37.0 FiO2 21.0 Oxyhemoglobin Percent 78.5 L Total Hemoglobin 12.6 Medications Medications Current Medications Albuterol (Ventolin Hfa) 2 puff Q4H PRN INH WHEEZING AND SOB Last administered on 10/21/16 08:47; Admin Dose 2 PUFF; Start 10/20/16 at 02:30 Aspirin (Halfprin) 81 mg DAILY PO Last administered on 10/22/16 08:03; Admin Dose 81 MG; Start 10/20/16 at 09:00 Gabapentin (Neurontin) 300 mg BID PO Last administered on 10/22/16 08:03; Admin Dose 300 MG; Start 10/20/16 at 09:00 Diagnostic Test (Pha) (Accucheck) 1 ea 02 XX Last administered on 10/22/16 02: 00; Admin Dose 1 EA; Start 10/21/16 at 02:00 Ondansetron HCl (Zofran Inj) 4 mg Q6H PRN IV NAUSEA AND/OR VOMITING; Start at 02:30 Acetaminophen (Tylenol Tab) 650 mg Q6H PRN PO PAIN AND OR ELEVATED TEMP Last administered on 10/21/16 08:47; Admin Dose 650 MG; Start 10/20/16 at 02:30 Miscellaneous Information 1 ea NOTE XX ; Start 10/20/16 at 03:00 Glucose (Glutose) 15 gm Q15M PRN PO DECREASED GLUCOSE; Start 10/20/16 at 03:00 Glucose (Glutose) 22.5 gm Q15M PRN PO DECREASED GLUCOSE; Start 10/20/16 at 03: 00 Dextrose (D50w Syringe) 25 ml Q15M PRN IV DECREASED GLUCOSE; Start 10/20/16 at 03:00 Dextrose (D50w Syringe) 50 ml Q15M PRN IV DECREASED GLUCOSE; Start 10/20/16 at 03:00 Glucagon (Glucagen) 1 mg Q15M PRN IM DECREASED GLUCOSE; Start 10/20/16 at 03:00 Glucose (Glutose) 15 gm Q15M PRN BUCCAL DECREASED GLUCOSE; Start 10/20/16 at 03 :00 Linagliptin (Tradjenta) 5 mg DAILY PO Last administered on 10/22/16 08:03; Admin Dose 5 MG; Start 10/20/16 at 09:00 Guaifenesin/ Codeine Phosphate (Robitussin Ac Liquid Cup) 10 ml Q4H PRN PO COUGH Last administered on 10/22/16 16:00; Admin Dose 10 ML; Start 10/20/16 at 03:00 Mometasone Furoate (Asmanex) 1 puff BID INH Last administered on 10/22/16 08:03 ; Admin Dose 1 PUFF; Start 10/20/16 at 09:00 Famotidine (Pepcid) 20 mg DAILY PO Last administered on 10/22/16 08:03; Admin Dose 20 MG; Start 10/21/16 at 09:00 [facility] [address] [id number] Radiology Main Line: [phone] DIAGNOSTIC IMAGING REPORT Patient: THIERRY KIRK : 1940 Age: 76 Sex: F [id number] [id number] DOS: 10/22/16 0800 Ordering MD: CARLOTTA DOMINGUEZ MD Location: [facility] Room/Bed: [facility] PROCEDURE: CT Abdomen and Pelvis with Contrast CLINICAL INDICATION: Staging TECHNIQUE: Transaxial images were obtained through the abdomen and pelvis on a multi-slice scanner following the intravenous administration of iodinated contrast. No oral contrast had previously been given. Sagittal and coronal re- formations were subsequently reconstructed. One or more of the following dose reduction techniques were used: - Automated exposure control. - Adjustment of the mA and/or kV according to patient size. - Use of iterative reconstruction technique. Radiation dose: CTDIvol = 22.02 mGy; DLP = 1242.66 mGy-cm. COMPARISON: No prior studies are available for comparison. FINDINGS: Lung bases: Reticular changes are seen at the lung bases, to a greater extent on the left than the right. No effusion is identified. Liver: Normal in size and in attenuation. There is no focal lesion. The hepatic veins and portal veins appear patent. Gallbladder: The gallbladder is not identified. Bile ducts: There is mild intrahepatic and moderate extrahepatic biliary duct dilatation with the common bile duct measuring 1.6 cm to the head of the pancreas. No choledocholith is evident. Pancreas: The pancreatic duct is mildly dilated to approximately 2.5 mm in cross diameter, but no pancreatic mass or inflammation is evident. Spleen: Normal in size with no focal lesion. Adrenals: Normal with no mass identified. Kidneys, ureters and bladder: Multiple bilateral renal cysts are identified with the largest on the right measuring 5.2 cm in diameter and the largest on the left measuring 3.8 cm in diameter. There is no hydronephrosis. No intra renal calcification is evident. The ureters are not dilated. The bladder appears unremarkable. Reproductive organs: The uterus is absent and no adnexal mass is evident. Stomach, bowel, and mesentery: Substantial stool is seen within the colon but there is no evidence of bowel obstruction or inflammation. The stomach appears unremarkable. Appendix: The vermiform appendix is not identified. Peritoneum: No free intraperitoneal fluid or air is identified. There is a moderate-sized right periumbilical fat-containing hernia. Aorta: Normal in caliber with no aneurysmal dilatation. IVC: Unremarkable. Lymph nodes: No pathologically enlarged nodes are identified. Osseous structures: Moderate degenerative spine and disk changes are noted. Soft tissues: Several calcific densities are seen within the central anterior abdominal wall. Injection site granulomas are seen in the gluteal regions. IMPRESSION: 1. The gallbladder is not identified and presumably is surgically absent. There is mild intrahepatic and moderate extrahepatic bile duct dilatation with the common bile duct measuring 1.6 cm to the head of the pancreas. The pancreas is unremarkable except for mild dilatation of the pancreatic duct which measures 2.5 mm in cross diameter. This may be a sequelae of chronic pancreatitis. No choledocholith is evident.. Clinical and laboratory correlation is indicated to exclude biliary outflow obstruction. 2. Multiple bilateral renal cysts are evident without hydronephrosis or ureterolithiasis. The bladder appears unremarkable. 3. There is substantial stool within the colon without evidence of bowel obstruction or inflammation. The vermiform appendix is not identified. 4. Status post hysterectomy with no adnexal mass evident. 5. There is a fat-containing right periumbilical hernia. Multiple calcific densities are seen at the midline of the anterior abdominal wall which may be related to previous surgery. 6. Degenerative spine and disk changes. 7. Discoid atelectasis is noted within the posterior lung bases. Physician Moody Date Time Electronically viewed and signed by Physician Moody on 10/22/2016 16:10 RH/ CC: CARLOTTA DMOINGUEZ MD, VERA M MD Oct 22, 2016 17:58
[2016-10-23] VITALS (12 sets, daily range): BP systolic 120–155; BP diastolic 56–84; PULSE 59–78; RESP 18–20
[2016-10-23] MEDS: ACCUCHECK XX SCH (02:00)
[2016-10-23 06:19] LABS: BASOPHILS % 0.3 % (0.0-2.0); EOSINOPHILS # 0.3 10^3/ul (0.0-0.5); EOSINOPHILS % 4.9 % (0.0-7.0); HEMOGLOBIN 11.4 g/dl (12.0-16.0); LYMPHOCYTES # 1.8 10^3/ul (0.8-2.9); LYMPHOCYTES % 28.9 % (15.0-51.0); MEAN CORPUSCULAR HGB CONC 33.6 g/dl (32.0-37.0); MEAN CORPUSCULAR VOLUME 89.4 fl (82.0-101.0); MEAN PLATELET VOLUME 8.8 fl (7.4-10.4); MONOCYTE # 0.6 10^3/ul (0.3-0.9); MONOCYTES % 9.4 % (0.0-11.0); NEUTROPHIL # 3.4 10^3/ul (1.6-7.5); NEUTROPHILS % 56.5 % (39.0-77.0); PLATELET COUNT 185 10^3/UL (140-440); RED BLOOD COUNT 3.81 10^6/ul (4.20-5.40); RED CELL DISTRIBUTION WIDTH 14.4 % (11.5-14.5); UNCORRECTED WBC 6.1 10^3/ul (4.8-10.8); WHITE BLOOD COUNT 6.1 10^3/ul (4.8-10.8)
[2016-10-23 06:24] LABS: POTASSIUM 3.8 mmol/L (3.5-5.1)
[2016-10-23 06:26] LABS: CREATININE 0.82 mg/dl (0.44-1.00)
[2016-10-23 06:27] LABS: CALCIUM 8.9 mg/dl (8.4-10.2)
[2016-10-23 06:49] LABS: CONDITION 1
[2016-10-23] MEDS: RIVAROXABAN 15 MG TABLET PO SCH ×2 (08:30→17:14)
[2016-10-23] MEDS: SUCRALFATE 1 GM TAB PO SCH ×4 (08:32→21:17)
[2016-10-23] MEDS: LINAGLIPTIN 5 MG TABLET PO SCH (08:32)
[2016-10-23] MEDS: FAMOTIDINE 20 MG TAB PO SCH (08:32)
[2016-10-23] MEDS: ASPIRIN (EC) 81 MG TAB PO SCH (08:32)
[2016-10-23] MEDS: GABAPENTIN 300 MG CAP PO SCH ×2 (08:32→21:17)
[2016-10-23] MEDS: MOMETASONE 0.24 GM INHALER INH SCH ×2 (08:33→21:17)
[2016-10-23] MEDS: INSULIN ASPART [NOVOLOG] 3 ML PEN SC SCH ×4 (08:35→21:24)
[2016-10-23] MEDS: GUAIFENESIN/CODEINE 5ML CUP PO PRN (09:41)
--- NOTE | 2016-10-23 14:20 | CONS ---
Date/Time of Note Date/Time of Note DATE: 10/23/16 TIME: 14:20 Consult Date/Type/Reason Admit Date/Time Oct 20, 2016 at 00:00 Type of Consultation: pulmonary Ordering Provider: CARMINE ZUNIGA Subjective Patient remained stable still expressing some shortness of breath on exertion Objective Vital Signs Date Time Temp Pulse Resp B/P Pulse Ox O2 Delivery O2 Flow Rate FiO2 10/23/16 12:48 69 10/23/16 11:00 98.3 19 134/60 93 10/23/16 10:38 2.0 10/23/16 10:34 Nasal Cannula 10/19/16 21:59 21 Intake and Output 10/22/16 10/22/16 10/23/16 14:59 22:59 06:59 Intake Total 720 ml Balance 720 ml General: No acute signs or symptoms of distress Eyes: pupils equal round, Anicteric sclera Neck: Supple nontender, no JVD Cardiac: S1, S2 auscultated, regular rhythm and rate Pulmonary: No coarse rhonchi or breathing auscultated GI: Abdomen soft nontender nondistended, bowel sounds active Extremities: Minimal edema left lower extremity Skin: Clean dry and intact Neurologic: Grossly intact Results/Medications Result Diagram: 10/23/16 0530 10/23/16 0530 Results 24 hrs Laboratory Tests Test 10/22/16 20:53 10/23/16 03:00 10/23/16 05:30 10/23/16 08:04 Bedside Glucose 265 H 177 148 Anion Gap 8 Basophils # 0.0 Basophils % 0.3 Blood Urea Nitrogen 13 Calcium Level 8.9 Carbon Dioxide Level 36 H Chloride Level 98 Creatinine 0.82 Eosinophils # 0.3 Eosinophils % 4.9 Glucose Level 162 Hematocrit 34.0 L Hemoglobin 11.4 L Lymphocytes # 1.8 Lymphocytes % 28.9 Mean Corpuscular Hemoglobin 30.0 Mean Corpuscular Hemoglobin Concent 33.6 Mean Corpuscular Volume 89.4 Mean Platelet Volume 8.8 Monocytes # 0.6 Monocytes % 9.4 Neutrophils # 3.4 Neutrophils % 56.5 Nucleated Red Blood Cells # 0.0 Nucleated Red Blood Cells % 0.0 Platelet Count 185 Potassium Level 3.8 Red Blood Count 3.81 L Red Cell Distribution Width 14.4 Sodium Level 138 White Blood Count 6.1 Test 10/23/16 12:03 Bedside Glucose 227 H Medications Current Medications Albuterol (Ventolin Hfa) 2 puff Q4H PRN INH WHEEZING AND SOB Last administered on 10/21/16 08:47; Admin Dose 2 PUFF; Start 10/20/16 at 02:30 Aspirin (Halfprin) 81 mg DAILY PO Last administered on 10/23/16 08:32; Admin Dose 81 MG; Start 10/20/16 at 09:00 Gabapentin (Neurontin) 300 mg BID PO Last administered on 10/23/16 08:32; Admin Dose 300 MG; Start 10/20/16 at 09:00 Diagnostic Test (Pha) (Accucheck) 1 ea 02 XX Last administered on 10/23/16 02: 00; Admin Dose 1 EA; Start 10/21/16 at 02:00 Ondansetron HCl (Zofran Inj) 4 mg Q6H PRN IV NAUSEA AND/OR VOMITING; Start at 02:30 Acetaminophen (Tylenol Tab) 650 mg Q6H PRN PO PAIN AND OR ELEVATED TEMP Last administered on 10/21/16 08:47; Admin Dose 650 MG; Start 10/20/16 at 02:30 Miscellaneous Information 1 ea NOTE XX ; Start 10/20/16 at 03:00 Glucose (Glutose) 15 gm Q15M PRN PO DECREASED GLUCOSE; Start 10/20/16 at 03:00 Glucose (Glutose) 22.5 gm Q15M PRN PO DECREASED GLUCOSE; Start 10/20/16 at 03: 00 Dextrose (D50w Syringe) 25 ml Q15M PRN IV DECREASED GLUCOSE; Start 10/20/16 at 03:00 Dextrose (D50w Syringe) 50 ml Q15M PRN IV DECREASED GLUCOSE; Start 10/20/16 at 03:00 Glucagon (Glucagen) 1 mg Q15M PRN IM DECREASED GLUCOSE; Start 10/20/16 at 03:00 Glucose (Glutose) 15 gm Q15M PRN BUCCAL DECREASED GLUCOSE; Start 10/20/16 at 03 :00 Linagliptin (Tradjenta) 5 mg DAILY PO Last administered on 10/23/16 08:32; Admin Dose 5 MG; Start 10/20/16 at 09:00 Guaifenesin/ Codeine Phosphate (Robitussin Ac Liquid Cup) 10 ml Q4H PRN PO COUGH Last administered on 10/23/16 09:41; Admin Dose 10 ML; Start 10/20/16 at 03:00 Mometasone Furoate (Asmanex) 1 puff BID INH Last administered on 10/23/16 08:33 ; Admin Dose 1 PUFF; Start 10/20/16 at 09:00 Famotidine (Pepcid) 20 mg DAILY PO Last administered on 10/23/16 08:32; Admin Dose 20 MG; Start 10/21/16 at 09:00 Assessment/Plan Chief Complaint/Hosp Course IMPRESSION AND PLAN: 1. Acute pulmonary embolus and deep vein thrombosis 2. Recent air travel. 3. Poorly controlled diabetes given hemoglobin A1c. 4. Morbid obesity. 5. Probable underlying obstructive sleep apnea. 6. Pulmonary hypertension, likely combination of pulmonary embolus and obstructive sleep apnea. The patient will require: 1. Continued anticoagulation. The patient now placed on Xarelto. 2. Would hold off IVC filter placement as DVTs were below knee 3. Agree with malignancy workup would include CT abdomen and pelvis Agree with discharge planning Problems: MO[facility]ST[facility] WANG [facility] Oct 23, 2016 14:20
--- NOTE | 2016-10-23 15:22 | PN ---
Date/Time of Note Date/Time of Note DATE: 10/23/16 TIME: 15:19 Assessment/Plan VTE Prophylaxis VTE Prophylaxis Intervention: other (xarelto) Lines/Catheters IV [facility] (from [facility] Saline Lock Urinary Cath still in place: No Assessment/Plan Chief Complaint/Hosp Course Assessment and plan 1. Bilateral pulmonary embolism. Patient on Xarelto. Pulmonologists following. continue hematology workup 2. Bilateral lower extremity DVT. Etiology unknown. cont with hematology recs. Continue on Xarelto. no IVC filter per hematology 3. History of asthma. No active bronchospasm at this time. Continue on O2 as needed. Bronchodilators as needed. 4. Type 2 diabetes. Continue insulin regimen. Adjust as needed 5. Essential hypertension. We'll continue anti-hypertensives and adjust as needed Disposition and plan: patient still hypoxic off o2. We'll plan for discharge with O2. Discussed with case management, will plan for possible alf facility placement. We'll follow-up Discussed but of care with Dr. Chin Problems: Subjective 24 Hr Interval Summary Free Text/Dictation Still reported shortness of breath and cough Exam/Review of Systems Vital Signs Vitals Vital Signs Date Time Temp Pulse Resp B/P Pulse Ox O2 Delivery O2 Flow Rate FiO2 10/23/16 12:48 69 10/23/16 11:00 98.3 19 134/60 93 10/23/16 10:38 2.0 10/23/16 10:34 Nasal Cannula 10/19/16 21:59 21 Intake and Output 10/22/16 10/22/16 10/23/16 15:00 23:00 07:00 Intake Total 720 ml Balance 720 ml Exam General: No acute signs or symptoms of distress Eyes: pupils equal round, Anicteric sclera Neck: Supple nontender, no JVD Cardiac: S1, S2 auscultated, regular rhythm and rate Pulmonary: No coarse rhonchi or breathing auscultated GI: Abdomen soft nontender nondistended, bowel sounds active Extremities: Minimal edema left lower extremity Skin: Clean dry and intact Neurologic: Alert to person place and time and situation Results Result Diagram: 10/23/16 0530 10/23/16 0530 Results 24 hrs Laboratory Tests Test 10/22/16 20:53 10/23/16 03:00 10/23/16 05:30 10/23/16 08:04 Bedside Glucose 265 H 177 148 Anion Gap 8 Basophils # 0.0 Basophils % 0.3 Blood Urea Nitrogen 13 Calcium Level 8.9 Carbon Dioxide Level 36 H Chloride Level 98 Creatinine 0.82 Eosinophils # 0.3 Eosinophils % 4.9 Glucose Level 162 Hematocrit 34.0 L Hemoglobin 11.4 L Lymphocytes # 1.8 Lymphocytes % 28.9 Mean Corpuscular Hemoglobin 30.0 Mean Corpuscular Hemoglobin Concent 33.6 Mean Corpuscular Volume 89.4 Mean Platelet Volume 8.8 Monocytes # 0.6 Monocytes % 9.4 Neutrophils # 3.4 Neutrophils % 56.5 Nucleated Red Blood Cells # 0.0 Nucleated Red Blood Cells % 0.0 Platelet Count 185 Potassium Level 3.8 Red Blood Count 3.81 L Red Cell Distribution Width 14.4 Sodium Level 138 White Blood Count 6.1 Test 10/23/16 12:03 Bedside Glucose 227 H Medications Medications Current Medications Albuterol (Ventolin Hfa) 2 puff Q4H PRN INH WHEEZING AND SOB Last administered on 10/21/16 08:47; Admin Dose 2 PUFF; Start 10/20/16 at 02:30 Aspirin (Halfprin) 81 mg DAILY PO Last administered on 10/23/16 08:32; Admin Dose 81 MG; Start 10/20/16 at 09:00 Gabapentin (Neurontin) 300 mg BID PO Last administered on 10/23/16 08:32; Admin Dose 300 MG; Start 10/20/16 at 09:00 Diagnostic Test (Pha) (Accucheck) 1 ea 02 XX Last administered on 10/23/16 02: 00; Admin Dose 1 EA; Start 10/21/16 at 02:00 Ondansetron HCl (Zofran Inj) 4 mg Q6H PRN IV NAUSEA AND/OR VOMITING; Start at 02:30 Acetaminophen (Tylenol Tab) 650 mg Q6H PRN PO PAIN AND OR ELEVATED TEMP Last administered on 10/21/16 08:47; Admin Dose 650 MG; Start 10/20/16 at 02:30 Miscellaneous Information 1 ea NOTE XX ; Start 10/20/16 at 03:00 Glucose (Glutose) 15 gm Q15M PRN PO DECREASED GLUCOSE; Start 10/20/16 at 03:00 Glucose (Glutose) 22.5 gm Q15M PRN PO DECREASED GLUCOSE; Start 10/20/16 at 03: 00 Dextrose (D50w Syringe) 25 ml Q15M PRN IV DECREASED GLUCOSE; Start 10/20/16 at 03:00 Dextrose (D50w Syringe) 50 ml Q15M PRN IV DECREASED GLUCOSE; Start 10/20/16 at 03:00 Glucagon (Glucagen) 1 mg Q15M PRN IM DECREASED GLUCOSE; Start 10/20/16 at 03:00 Glucose (Glutose) 15 gm Q15M PRN BUCCAL DECREASED GLUCOSE; Start 10/20/16 at 03 :00 Linagliptin (Tradjenta) 5 mg DAILY PO Last administered on 10/23/16 08:32; Admin Dose 5 MG; Start 10/20/16 at 09:00 Guaifenesin/ Codeine Phosphate (Robitussin Ac Liquid Cup) 10 ml Q4H PRN PO COUGH Last administered on 10/23/16 09:41; Admin Dose 10 ML; Start 10/20/16 at 03:00 Mometasone Furoate (Asmanex) 1 puff BID INH Last administered on 10/23/16 08:33 ; Admin Dose 1 PUFF; Start 10/20/16 at 09:00 Famotidine (Pepcid) 20 mg DAILY PO Last administered on 10/23/16 08:32; Admin Dose 20 MG; Start 10/21/16 at 09:00 CARMINE ZUNIGA Oct 23, 2016 15:22
[2016-10-23] MEDS: GUAIFENESIN LA 600 MG TABSR PO SCH (21:17)
[2016-10-24] VITALS (12 sets, daily range): BP systolic 119–145; BP diastolic 55–69; PULSE 58–72; RESP 16–20
[2016-10-24] MEDS: ACCUCHECK XX SCH (02:10)
[2016-10-24] MEDS: INSULIN ASPART [NOVOLOG] 3 ML PEN SC SCH ×4 (08:00→20:49)
[2016-10-24 09:07] LABS: POTASSIUM 3.7 mmol/L (3.5-5.1)
[2016-10-24 09:09] LABS: CREATININE 0.8 mg/dl (0.44-1.00)
[2016-10-24] MEDS: LINAGLIPTIN 5 MG TABLET PO SCH (09:10)
[2016-10-24] MEDS: ASPIRIN (EC) 81 MG TAB PO SCH (09:10)
[2016-10-24] MEDS: GUAIFENESIN LA 600 MG TABSR PO SCH ×2 (09:10→20:47)
[2016-10-24] MEDS: GUAIFENESIN/CODEINE 5ML CUP PO PRN (09:10)
[2016-10-24] MEDS: FAMOTIDINE 20 MG TAB PO SCH (09:11)
[2016-10-24] MEDS: GABAPENTIN 300 MG CAP PO SCH ×2 (09:11→20:47)
[2016-10-24] MEDS: MOMETASONE 0.24 GM INHALER INH SCH ×2 (09:11→20:47)
[2016-10-24] MEDS: RIVAROXABAN 15 MG TABLET PO SCH ×2 (09:11→17:13)
[2016-10-24] MEDS: SUCRALFATE 1 GM TAB PO SCH ×4 (09:11→20:47)
[2016-10-24] MEDS: INSULIN GLARGINE [LANtus] 3 ML PEN SC SCH (09:12)
[2016-10-24 11:10] LABS: BASOPHILS % 0.2 % (0.0-2.0); HEMATOCRIT 33.1 % (37.0-47.0); HEMOGLOBIN 10.4 g/dl (12.0-16.0); MEAN CORPUSCULAR HEMOGLOBIN 28.7 pg (29.0-33.0); MEAN CORPUSCULAR HGB CONC 31.4 g/dl (32.0-37.0); MEAN CORPUSCULAR VOLUME 91.4 fl (82.0-101.0); MEAN PLATELET VOLUME 11.3 fl (7.4-10.4); NEUTROPHILS % 61.5 % (39.0-77.0); PLATELET COUNT 176 10^3/UL (140-440); RED BLOOD COUNT 3.62 10^6/ul (4.20-5.40); RED CELL DISTRIBUTION WIDTH 13.8 % (11.5-14.5)
[2016-10-24 11:11] LABS: EOSINOPHILS # 0.3 10^3/ul (0.0-0.5); LYMPHOCYTES # 1.5 10^3/ul (0.8-2.9); MONOCYTE # 0.5 10^3/ul (0.3-0.9); NEUTROPHIL # 3.7 10^3/ul (1.6-7.5)
[2016-10-24 14:43] LABS: ANA SCREEN NEGATIVE (NEGATIVE)
--- NOTE | 2016-10-24 15:24 | CONS ---
Date/Time of Note Date/Time of Note DATE: 10/24/16 TIME: 15:23 Consult Date/Type/Reason Admit Date/Time Oct 20, 2016 at 00:00 Type of Consultation: pulmonary Ordering Provider: CRAMINE ZUNIGA Subjective patient remains comfortable. Objective Vital Signs Date Time Temp Pulse Resp B/P Pulse Ox O2 Delivery O2 Flow Rate FiO2 10/24/16 12:15 98.1 71 19 128/60 94 10/24/16 08:00 Nasal Cannula 2.0 Intake and Output 10/23/16 10/23/16 10/24/16 15:00 23:00 07:00 Intake Total 750 ml 240 ml Output Total 1400 ml Balance 750 ml -1160 ml GENERAL: Moderately obese lady, awake, alert, oriented, comfortable at rest. No acute distress. VITAL SIGNS: As above NECK: Supple. No JVD, lymphadenopathy. CARDIAC: S1, S2. No added sounds or murmurs. CHEST: Diminished air entry bilaterally. ABDOMEN: Soft, nontender. No guarding or rebound. EXTREMITIES: No cyanosis, clubbing, edema. NEUROLOGIC: Grossly intact. No focal deficits. Results/Medications Result Diagram: 10/24/16 0740 10/24/16 0740 Results 24 hrs Laboratory Tests Test 10/23/16 16:54 10/23/16 21:19 10/24/16 02:04 10/24/16 07:40 Bedside Glucose 227 H 294 H 174 Anion Gap 11 Basophils # 0.0 Basophils % 0.2 Blood Urea Nitrogen 11 Calcium Level 9.0 Carbon Dioxide Level 35 H Chloride Level 98 Creatinine 0.80 Eosinophils # 0.3 Eosinophils % 5.0 Glucose Level 137 Hematocrit 33.1 L Hemoglobin 10.4 L Lymphocytes # 1.5 Lymphocytes % 25.0 Mean Corpuscular Hemoglobin 28.7 L Mean Corpuscular Hemoglobin Concent 31.4 L Mean Corpuscular Volume 91.4 Mean Platelet Volume 11.3 #H Monocytes # 0.5 Monocytes % 8.0 Neutrophils # 3.7 Neutrophils % 61.5 Nucleated Red Blood Cells # 0.0 Nucleated Red Blood Cells % 0.0 Platelet Count 176 Potassium Level 3.7 Red Blood Count 3.62 L Red Cell Distribution Width 13.8 Sodium Level 140 White Blood Count 6.0 Test 10/24/16 07:51 10/24/16 11:19 Bedside Glucose 134 175 Medications Current Medications Albuterol (Ventolin Hfa) 2 puff Q4H PRN INH WHEEZING AND SOB Last administered on 10/21/16 08:47; Admin Dose 2 PUFF; Start 10/20/16 at 02:30 Aspirin (Halfprin) 81 mg DAILY PO Last administered on 10/24/16 09:10; Admin Dose 81 MG; Start 10/20/16 at 09:00 Gabapentin (Neurontin) 300 mg BID PO Last administered on 10/24/16 09:11; Admin Dose 300 MG; Start 10/20/16 at 09:00 Diagnostic Test (Pha) (Accucheck) 1 ea 02 XX Last administered on 10/24/16 02: 10; Admin Dose 1 EA; Start 10/21/16 at 02:00 Ondansetron HCl (Zofran Inj) 4 mg Q6H PRN IV NAUSEA AND/OR VOMITING; Start at 02:30 Acetaminophen (Tylenol Tab) 650 mg Q6H PRN PO PAIN AND OR ELEVATED TEMP Last administered on 10/21/16 08:47; Admin Dose 650 MG; Start 10/20/16 at 02:30 Miscellaneous Information 1 ea NOTE XX ; Start 10/20/16 at 03:00 Glucose (Glutose) 15 gm Q15M PRN PO DECREASED GLUCOSE; Start 10/20/16 at 03:00 Glucose (Glutose) 22.5 gm Q15M PRN PO DECREASED GLUCOSE; Start 10/20/16 at 03: 00 Dextrose (D50w Syringe) 25 ml Q15M PRN IV DECREASED GLUCOSE; Start 10/20/16 at 03:00 Dextrose (D50w Syringe) 50 ml Q15M PRN IV DECREASED GLUCOSE; Start 10/20/16 at 03:00 Glucagon (Glucagen) 1 mg Q15M PRN IM DECREASED GLUCOSE; Start 10/20/16 at 03:00 Glucose (Glutose) 15 gm Q15M PRN BUCCAL DECREASED GLUCOSE; Start 10/20/16 at 03 :00 Linagliptin (Tradjenta) 5 mg DAILY PO Last administered on 10/24/16 09:10; Admin Dose 5 MG; Start 10/20/16 at 09:00 Guaifenesin/ Codeine Phosphate (Robitussin Ac Liquid Cup) 10 ml Q4H PRN PO COUGH Last administered on 10/24/16 09:10; Admin Dose 10 ML; Start 10/20/16 at 03:00 Mometasone Furoate (Asmanex) 1 puff BID INH Last administered on 10/24/16 09:11 ; Admin Dose 1 PUFF; Start 10/20/16 at 09:00 Famotidine (Pepcid) 20 mg DAILY PO Last administered on 10/24/16 09:11; Admin Dose 20 MG; Start 10/21/16 at 09:00 Guaifenesin (Mucinex) 600 mg BID PO Last administered on 10/24/16 09:10; Admin Dose 600 MG; Start 10/23/16 at 21:00 Insulin Glargine (Lantus) 8 unit DAILY@08 SC Last administered on 10/24/16 09: 12; Admin Dose 8 UNIT; Start 10/24/16 at 08:00 Assessment/Plan Chief Complaint/Hosp Course IMPRESSION AND PLAN: 1. Acute pulmonary embolus and deep vein thrombosis 2. Recent air travel. 3. Poorly controlled diabetes given hemoglobin A1c. 4. Morbid obesity. 5. Probable underlying obstructive sleep apnea. 6. Pulmonary hypertension, likely combination of pulmonary embolus and obstructive sleep apnea. The patient will require: 1. Continued anticoagulation. The patient now placed on Xarelto. 2. Would hold off IVC filter placement as DVTs were below knee 3. Agree with malignancy workup would include CT abdomen and pelvis Agree with discharge planning Problems: MODESTO WANG MD, [facility] Oct 24, 2016 15:24
--- NOTE | 2016-10-24 17:13 | PN ---
Date/Time of Note Date/Time of Note DATE: 10/24/16 TIME: 17:11 Assessment/Plan VTE Prophylaxis VTE Prophylaxis Intervention: other (Xarelto) Lines/Catheters [facility] Saline Lock Urinary Cath still in place: No Assessment/Plan Chief Complaint/Hosp Course Assessment and plan 1. Bilateral pulmonary embolism. Patient on Xarelto. Pulmonologists following. continue hematology workup 2. Bilateral lower extremity DVT. Etiology unknown. cont with hematology recs. Continue on Xarelto. no IVC filter per hematology 3. History of asthma. No active bronchospasm at this time. Continue on O2 as needed. Bronchodilators as needed. 4. Type 2 diabetes. Continue insulin regimen. Adjust as needed 5. Essential hypertension. We'll continue anti-hypertensives and adjust as needed Disposition and plan: Patient states she was on her own. States she has difficulty taking care of herself. We'll plan for jail facility placement. We'll follow-up with case management. Discussed but of care with Dr. Chin Problems: Subjective 24 Hr Interval Summary Free Text/Dictation Does report better breathing at this time. Still reports having some pain on bilateral lower extremities Exam/Review of Systems Vital Signs Vitals Vital Signs Date Time Temp Pulse Resp B/P Pulse Ox O2 Delivery O2 Flow Rate FiO2 10/24/16 16:08 61 10/24/16 15:59 2.0 10/24/16 15:00 98.3 20 138/68 94 10/24/16 08:00 Nasal Cannula Intake and Output 10/23/16 10/23/16 10/24/16 15:00 23:00 07:00 Intake Total 750 ml 240 ml Output Total 1400 ml Balance 750 ml -1160 ml Exam General: No acute signs or symptoms of distress Eyes: pupils equal round, Anicteric sclera Neck: Supple nontender, no JVD Cardiac: S1, S2 auscultated, regular rhythm and rate Pulmonary: No coarse rhonchi or breathing auscultated GI: Abdomen soft nontender nondistended, bowel sounds active Extremities: Minimal edema left lower extremity Skin: Clean dry and intact Neurologic: Alert to person place and time and situation Results Result Diagram: 10/24/16 0740 10/24/16 0740 Results 24 hrs Laboratory Tests Test 10/23/16 21:19 10/24/16 02:04 10/24/16 07:40 10/24/16 07:51 Bedside Glucose 294 H 174 134 Anion Gap 11 Basophils # 0.0 Basophils % 0.2 Blood Urea Nitrogen 11 Calcium Level 9.0 Carbon Dioxide Level 35 H Chloride Level 98 Creatinine 0.80 Eosinophils # 0.3 Eosinophils % 5.0 Glucose Level 137 Hematocrit 33.1 L Hemoglobin 10.4 L Lymphocytes # 1.5 Lymphocytes % 25.0 Mean Corpuscular Hemoglobin 28.7 L Mean Corpuscular Hemoglobin Concent 31.4 L Mean Corpuscular Volume 91.4 Mean Platelet Volume 11.3 #H Monocytes # 0.5 Monocytes % 8.0 Neutrophils # 3.7 Neutrophils % 61.5 Nucleated Red Blood Cells # 0.0 Nucleated Red Blood Cells % 0.0 Platelet Count 176 Potassium Level 3.7 Red Blood Count 3.62 L Red Cell Distribution Width 13.8 Sodium Level 140 White Blood Count 6.0 Test 10/24/16 11:19 Bedside Glucose 175 Medications Medications Current Medications Albuterol (Ventolin Hfa) 2 puff Q4H PRN INH WHEEZING AND SOB Last administered on 10/21/16 08:47; Admin Dose 2 PUFF; Start 10/20/16 at 02:30 Aspirin (Halfprin) 81 mg DAILY PO Last administered on 10/24/16 09:10; Admin Dose 81 MG; Start 10/20/16 at 09:00 Gabapentin (Neurontin) 300 mg BID PO Last administered on 10/24/16 09:11; Admin Dose 300 MG; Start 10/20/16 at 09:00 Diagnostic Test (Pha) (Accucheck) 1 ea 02 XX Last administered on 10/24/16 02: 10; Admin Dose 1 EA; Start 10/21/16 at 02:00 Ondansetron HCl (Zofran Inj) 4 mg Q6H PRN IV NAUSEA AND/OR VOMITING; Start at 02:30 Acetaminophen (Tylenol Tab) 650 mg Q6H PRN PO PAIN AND OR ELEVATED TEMP Last administered on 10/21/16 08:47; Admin Dose 650 MG; Start 10/20/16 at 02:30 Miscellaneous Information 1 ea NOTE XX ; Start 10/20/16 at 03:00 Glucose (Glutose) 15 gm Q15M PRN PO DECREASED GLUCOSE; Start 10/20/16 at 03:00 Glucose (Glutose) 22.5 gm Q15M PRN PO DECREASED GLUCOSE; Start 10/20/16 at 03: 00 Dextrose (D50w Syringe) 25 ml Q15M PRN IV DECREASED GLUCOSE; Start 10/20/16 at 03:00 Dextrose (D50w Syringe) 50 ml Q15M PRN IV DECREASED GLUCOSE; Start 10/20/16 at 03:00 Glucagon (Glucagen) 1 mg Q15M PRN IM DECREASED GLUCOSE; Start 10/20/16 at 03:00 Glucose (Glutose) 15 gm Q15M PRN BUCCAL DECREASED GLUCOSE; Start 10/20/16 at 03 :00 Linagliptin (Tradjenta) 5 mg DAILY PO Last administered on 10/24/16 09:10; Admin Dose 5 MG; Start 10/20/16 at 09:00 Guaifenesin/ Codeine Phosphate (Robitussin Ac Liquid Cup) 10 ml Q4H PRN PO COUGH Last administered on 10/24/16 09:10; Admin Dose 10 ML; Start 10/20/16 at 03:00 Mometasone Furoate (Asmanex) 1 puff BID INH Last administered on 10/24/16 09:11 ; Admin Dose 1 PUFF; Start 10/20/16 at 09:00 Famotidine (Pepcid) 20 mg DAILY PO Last administered on 10/24/16 09:11; Admin Dose 20 MG; Start 10/21/16 at 09:00 Guaifenesin (Mucinex) 600 mg BID PO Last administered on 10/24/16 09:10; Admin Dose 600 MG; Start 10/23/16 at 21:00 Insulin Glargine (Lantus) 8 unit DAILY@08 SC Last administered on 10/24/16 09: 12; Admin Dose 8 UNIT; Start 10/24/16 at 08:00 CARMINE ZUNIGA Oct 24, 2016 17:13
--- NOTE | 2016-10-24 19:25 | CONS ---
Date/Time of Note Date/Time of Note DATE: 10/24/16 TIME: 19:23 Assessment/Plan Assessment/Plan Chief Complaint/Hosp Course 1. HYPERCOAGULABLE STATE Acute pulmonary embolus and deep vein thrombosis- BL Continued anticoagulation. CONT Xarelto. NO INDICATIONS FOR IVC filter AT PRESENT CT abdomen and pelvis- NEG tumor markers- N hypercoagulable profile- P DC PLANNING -PER PRIMARY 2. Recent air travel. 3. Poorly controlled diabetes given hemoglobin A1c. 4. Morbid obesity. 5. Probable underlying obstructive sleep apnea. 6. Pulmonary hypertension, likely combination of pulmonary embolus and obstructive sleep apnea. HYPOXIA- 2 TO # 1 Problems: Consultation Date/Type/Reason Admit Date/Time Oct 20, 2016 at 00:00 Initial Consult Date 10/21/16 Type of Consultation: [facility] Referring Provider: CARMINE ZUNIGA 24 HR Interval Summary Free Text/Dictation all noted Does report better breathing at this time. Still reports having some pain on bilateral lower extremities on XARELTO Exam/Review of Systems Vital Signs Vitals Vital Signs Date Time Temp Pulse Resp B/P Pulse Ox O2 Delivery O2 Flow Rate FiO2 10/24/16 16:08 61 10/24/16 15:59 2.0 10/24/16 15:00 98.3 20 138/68 94 10/24/16 08:00 Nasal Cannula Intake and Output 10/23/16 10/23/16 10/24/16 15:00 23:00 07:00 Intake Total 750 ml 240 ml Output Total 1400 ml Balance 750 ml -1160 ml Exam GENERAL: Moderately obese lady, awake, alert, oriented, comfortable at rest. No acute distress. VITAL SIGNS: As above NECK: Supple. No JVD, lymphadenopathy. CARDIAC: S1, S2. No added sounds or murmurs. CHEST: Diminished air entry bilaterally. ABDOMEN: Soft, nontender. No guarding or rebound. EXTREMITIES: No cyanosis, clubbing, edema. NEUROLOGIC: Grossly intact. No focal deficits. Results Result Diagram: 10/24/16 0740 10/24/16 0740 Results 24 hrs Laboratory Tests Test 10/23/16 21:19 10/24/16 02:04 10/24/16 07:40 10/24/16 07:51 Bedside Glucose 294 H 174 134 Anion Gap 11 Basophils # 0.0 Basophils % 0.2 Blood Urea Nitrogen 11 Calcium Level 9.0 Carbon Dioxide Level 35 H Chloride Level 98 Creatinine 0.80 Eosinophils # 0.3 Eosinophils % 5.0 Glucose Level 137 Hematocrit 33.1 L Hemoglobin 10.4 L Lymphocytes # 1.5 Lymphocytes % 25.0 Mean Corpuscular Hemoglobin 28.7 L Mean Corpuscular Hemoglobin Concent 31.4 L Mean Corpuscular Volume 91.4 Mean Platelet Volume 11.3 #H Monocytes # 0.5 Monocytes % 8.0 Neutrophils # 3.7 Neutrophils % 61.5 Nucleated Red Blood Cells # 0.0 Nucleated Red Blood Cells % 0.0 Platelet Count 176 Potassium Level 3.7 Red Blood Count 3.62 L Red Cell Distribution Width 13.8 Sodium Level 140 White Blood Count 6.0 Test 10/24/16 11:19 10/24/16 17:00 Bedside Glucose 175 202 Medications Medications Current Medications Albuterol (Ventolin Hfa) 2 puff Q4H PRN INH WHEEZING AND SOB Last administered on 10/21/16 08:47; Admin Dose 2 PUFF; Start 10/20/16 at 02:30 Aspirin (Halfprin) 81 mg DAILY PO Last administered on 10/24/16 09:10; Admin Dose 81 MG; Start 10/20/16 at 09:00 Gabapentin (Neurontin) 300 mg BID PO Last administered on 10/24/16 09:11; Admin Dose 300 MG; Start 10/20/16 at 09:00 Diagnostic Test (Pha) (Accucheck) 1 ea 02 XX Last administered on 10/24/16 02: 10; Admin Dose 1 EA; Start 10/21/16 at 02:00 Ondansetron HCl (Zofran Inj) 4 mg Q6H PRN IV NAUSEA AND/OR VOMITING; Start at 02:30 Acetaminophen (Tylenol Tab) 650 mg Q6H PRN PO PAIN AND OR ELEVATED TEMP Last administered on 10/21/16 08:47; Admin Dose 650 MG; Start 10/20/16 at 02:30 Miscellaneous Information 1 ea NOTE XX ; Start 10/20/16 at 03:00 Glucose (Glutose) 15 gm Q15M PRN PO DECREASED GLUCOSE; Start 10/20/16 at 03:00 Glucose (Glutose) 22.5 gm Q15M PRN PO DECREASED GLUCOSE; Start 10/20/16 at 03: 00 Dextrose (D50w Syringe) 25 ml Q15M PRN IV DECREASED GLUCOSE; Start 10/20/16 at 03:00 Dextrose (D50w Syringe) 50 ml Q15M PRN IV DECREASED GLUCOSE; Start 10/20/16 at 03:00 Glucagon (Glucagen) 1 mg Q15M PRN IM DECREASED GLUCOSE; Start 10/20/16 at 03:00 Glucose (Glutose) 15 gm Q15M PRN BUCCAL DECREASED GLUCOSE; Start 10/20/16 at 03 :00 Linagliptin (Tradjenta) 5 mg DAILY PO Last administered on 10/24/16 09:10; Admin Dose 5 MG; Start 10/20/16 at 09:00 Guaifenesin/ Codeine Phosphate (Robitussin Ac Liquid Cup) 10 ml Q4H PRN PO COUGH Last administered on 10/24/16 09:10; Admin Dose 10 ML; Start 10/20/16 at 03:00 Mometasone Furoate (Asmanex) 1 puff BID INH Last administered on 10/24/16 09:11 ; Admin Dose 1 PUFF; Start 10/20/16 at 09:00 Famotidine (Pepcid) 20 mg DAILY PO Last administered on 10/24/16 09:11; Admin Dose 20 MG; Start 10/21/16 at 09:00 Guaifenesin (Mucinex) 600 mg BID PO Last administered on 10/24/16 09:10; Admin Dose 600 MG; Start 10/23/16 at 21:00 Insulin Glargine (Lantus) 8 unit DAILY@08 SC Last administered on 10/24/16 09: 12; Admin Dose 8 UNIT; Start 10/24/16 at 08:00 Procedures Procedures [place] [id number] Radiology Main Line: [phone] DIAGNOSTIC IMAGING REPORT Patient: THIERRY KIRK : 1940 Age: 76 Sex: F MR #: [id number] DOS: 10/22/16 0800 Ordering MD: CARLOTTA DOMINGUEZ MD Location: [facility] Room/Bed: [facility], [place] PROCEDURE: CT Abdomen and Pelvis with Contrast CLINICAL INDICATION: Staging TECHNIQUE: Transaxial images were obtained through the abdomen and pelvis on a multi-slice scanner following the intravenous administration of iodinated contrast. No oral contrast had previously been given. Sagittal and coronal re- formations were subsequently reconstructed. One or more of the following dose reduction techniques were used: - Automated exposure control. - Adjustment of the mA and/or kV according to patient size. - Use of iterative reconstruction technique. Radiation dose: CTDIvol = 22.02 mGy; DLP = 1242.66 mGy-cm. COMPARISON: No prior studies are available for comparison. FINDINGS: Lung bases: Reticular changes are seen at the lung bases, to a greater extent on the left than the right. No effusion is identified. Liver: Normal in size and in attenuation. There is no focal lesion. The hepatic veins and portal veins appear patent. Gallbladder: The gallbladder is not identified. Bile ducts: There is mild intrahepatic and moderate extrahepatic biliary duct dilatation with the common bile duct measuring 1.6 cm to the head of the pancreas. No choledocholith is evident. Pancreas: The pancreatic duct is mildly dilated to approximately 2.5 mm in cross diameter, but no pancreatic mass or inflammation is evident. Spleen: Normal in size with no focal lesion. Adrenals: Normal with no mass identified. Kidneys, ureters and bladder: Multiple bilateral renal cysts are identified with the largest on the right measuring 5.2 cm in diameter and the largest on the left measuring 3.8 cm in diameter. There is no hydronephrosis. No intra renal calcification is evident. The ureters are not dilated. The bladder appears unremarkable. Reproductive organs: The uterus is absent and no adnexal mass is evident. Stomach, bowel, and mesentery: Substantial stool is seen within the colon but there is no evidence of bowel obstruction or inflammation. The stomach appears unremarkable. Appendix: The vermiform appendix is not identified. Peritoneum: No free intraperitoneal fluid or air is identified. There is a moderate-sized right periumbilical fat-containing hernia. Aorta: Normal in caliber with no aneurysmal dilatation. IVC: Unremarkable. Lymph nodes: No pathologically enlarged nodes are identified. Osseous structures: Moderate degenerative spine and disk changes are noted. Soft tissues: Several calcific densities are seen within the central anterior abdominal wall. Injection site granulomas are seen in the gluteal regions. IMPRESSION: 1. The gallbladder is not identified and presumably is surgically absent. There is mild intrahepatic and moderate extrahepatic bile duct dilatation with the common bile duct measuring 1.6 cm to the head of the pancreas. The pancreas is unremarkable except for mild dilatation of the pancreatic duct which measures 2.5 mm in cross diameter. This may be a sequelae of chronic pancreatitis. No choledocholith is evident.. Clinical and laboratory correlation is indicated to exclude biliary outflow obstruction. 2. Multiple bilateral renal cysts are evident without hydronephrosis or ureterolithiasis. The bladder appears unremarkable. 3. There is substantial stool within the colon without evidence of bowel obstruction or inflammation. The vermiform appendix is not identified. 4. Status post hysterectomy with no adnexal mass evident. 5. There is a fat-containing right periumbilical hernia. Multiple calcific densities are seen at the midline of the anterior abdominal wall which may be related to previous surgery. 6. Degenerative spine and disk changes. 7. Discoid atelectasis is noted within the posterior lung bases. Physician Moody Date Time Electronically viewed and signed by Physician Moody on 10/22/2016 16:10 RH/ CC: CARLOTTA DOMINGUEZ MD, VERA M MD Oct 24, 2016 19:25
--- NOTE | 2016-10-24 19:28 | CONS ---
Date/Time of Note Date/Time of Note DATE: 10/23/16 TIME: 16:25 VK LE Assessment/Plan Assessment/Plan Chief Complaint/Hosp Course 1. HYPERCOAGULABLE STATE Acute pulmonary embolus and deep vein thrombosis- BL Continued anticoagulation. CONT Xarelto. NO INDICATIONS FOR IVC filter AT PRESENT CT abdomen and pelvis- NEG tumor markers- N hypercoagulable profile- P DC PLANNING -PER PRIMARY 2. Recent air travel. 3. Poorly controlled diabetes given hemoglobin A1c. 4. Morbid obesity. 5. Probable underlying obstructive sleep apnea. 6. Pulmonary hypertension, likely combination of pulmonary embolus and obstructive sleep apnea. HYPOXIA- 2 TO # 1 Problems: Consultation Date/Type/Reason Admit Date/Time Oct 20, 2016 at 00:00 Initial Consult Date 10/21/16 Type of Consultation: [facility] Referring Provider: CARMINE ZUNIGA 24 HR Interval Summary Free Text/Dictation ALL NOTED FELLING SL BETTER ON XARELTO Exam/Review of Systems Vital Signs Vitals Vital Signs Date Time Temp Pulse Resp B/P Pulse Ox O2 Delivery O2 Flow Rate FiO2 10/23/16 12:48 69 10/23/16 11:00 98.3 19 134/60 93 10/23/16 10:38 2.0 10/23/16 10:34 Nasal Cannula 10/19/16 21:59 21 Intake and Output 10/22/16 10/22/16 10/23/16 15:00 23:00 07:00 Intake Total 720 ml Balance 720 ml Exam General: No acute signs or symptoms of distress Eyes: pupils equal round, Anicteric sclera Neck: Supple nontender, no JVD Cardiac: S1, S2 auscultated, regular rhythm and rate Pulmonary: No coarse rhonchi or breathing auscultated GI: Abdomen soft nontender nondistended, bowel sounds active Extremities: Minimal edema left lower extremity Skin: Clean dry and intact Neurologic: Alert to person place and time and situation Results Results Result Diagram: 10/23/16 0530 10/23/16 0530 Results 24 hrs Laboratory Tests Test 10/22/16 20:53 10/23/16 03:00 10/23/16 05:30 10/23/16 08:04 Bedside Glucose 265 H 177 148 Anion Gap 8 Basophils # 0.0 Basophils % 0.3 Blood Urea Nitrogen 13 Calcium Level 8.9 Carbon Dioxide Level 36 H Chloride Level 98 Creatinine 0.82 Eosinophils # 0.3 Eosinophils % 4.9 Glucose Level 162 Hematocrit 34.0 L Hemoglobin 11.4 L Lymphocytes # 1.8 Lymphocytes % 28.9 Mean Corpuscular Hemoglobin 30.0 Mean Corpuscular Hemoglobin Concent 33.6 Mean Corpuscular Volume 89.4 Mean Platelet Volume 8.8 Monocytes # 0.6 Monocytes % 9.4 Neutrophils # 3.4 Neutrophils % 56.5 Nucleated Red Blood Cells # 0.0 Nucleated Red Blood Cells % 0.0 Platelet Count 185 Potassium Level 3.8 Red Blood Count 3.81 L Red Cell Distribution Width 14.4 Sodium Level 138 White Blood Count 6.1 Test 10/23/16 12:03 Bedside Glucose 227 H Result Diagram: 10/24/1640 10/24/16 0740 Results 24 hrs Laboratory Tests Test 10/23/16 21:19 10/24/16 02:04 10/24/16 07:40 10/24/16 07:51 Bedside Glucose 294 H 174 134 Anion Gap 11 Basophils # 0.0 Basophils % 0.2 Blood Urea Nitrogen 11 Calcium Level 9.0 Carbon Dioxide Level 35 H Chloride Level 98 Creatinine 0.80 Eosinophils # 0.3 Eosinophils % 5.0 Glucose Level 137 Hematocrit 33.1 L Hemoglobin 10.4 L Lymphocytes # 1.5 Lymphocytes % 25.0 Mean Corpuscular Hemoglobin 28.7 L Mean Corpuscular Hemoglobin Concent 31.4 L Mean Corpuscular Volume 91.4 Mean Platelet Volume 11.3 #H Monocytes # 0.5 Monocytes % 8.0 Neutrophils # 3.7 Neutrophils % 61.5 Nucleated Red Blood Cells # 0.0 Nucleated Red Blood Cells % 0.0 Platelet Count 176 Potassium Level 3.7 Red Blood Count 3.62 L Red Cell Distribution Width 13.8 Sodium Level 140 White Blood Count 6.0 Test 10/24/16 11:19 10/24/16 17:00 Bedside Glucose 175 202 Medications Medications Current Medications Albuterol (Ventolin Hfa) 2 puff Q4H PRN INH WHEEZING AND SOB Last administered on 10/21/16 08:47; Admin Dose 2 PUFF; Start 10/20/16 at 02:30 Aspirin (Halfprin) 81 mg DAILY PO Last administered on 10/24/16 09:10; Admin Dose 81 MG; Start 10/20/16 at 09:00 Gabapentin (Neurontin) 300 mg BID PO Last administered on 10/24/16 09:11; Admin Dose 300 MG; Start 10/20/16 at 09:00 Diagnostic Test (Pha) (Accucheck) 1 ea 02 XX Last administered on 10/24/16 02: 10; Admin Dose 1 EA; Start 10/21/16 at 02:00 Ondansetron HCl (Zofran Inj) 4 mg Q6H PRN IV NAUSEA AND/OR VOMITING; Start at 02:30 Acetaminophen (Tylenol Tab) 650 mg Q6H PRN PO PAIN AND OR ELEVATED TEMP Last administered on 10/21/16 08:47; Admin Dose 650 MG; Start 10/20/16 at 02:30 Miscellaneous Information 1 ea NOTE XX ; Start 10/20/16 at 03:00 Glucose (Glutose) 15 gm Q15M PRN PO DECREASED GLUCOSE; Start 10/20/16 at 03:00 Glucose (Glutose) 22.5 gm Q15M PRN PO DECREASED GLUCOSE; Start 10/20/16 at 03: 00 Dextrose (D50w Syringe) 25 ml Q15M PRN IV DECREASED GLUCOSE; Start 10/20/16 at 03:00 Dextrose (D50w Syringe) 50 ml Q15M PRN IV DECREASED GLUCOSE; Start 10/20/16 at 03:00 Glucagon (Glucagen) 1 mg Q15M PRN IM DECREASED GLUCOSE; Start 10/20/16 at 03:00 Glucose (Glutose) 15 gm Q15M PRN BUCCAL DECREASED GLUCOSE; Start 10/20/16 at 03 :00 Linagliptin (Tradjenta) 5 mg DAILY PO Last administered on 10/24/16 09:10; Admin Dose 5 MG; Start 10/20/16 at 09:00 Guaifenesin/ Codeine Phosphate (Robitussin Ac Liquid Cup) 10 ml Q4H PRN PO COUGH Last administered on 10/24/16 09:10; Admin Dose 10 ML; Start 10/20/16 at 03:00 Mometasone Furoate (Asmanex) 1 puff BID INH Last administered on 10/24/16 09:11 ; Admin Dose 1 PUFF; Start 10/20/16 at 09:00 Famotidine (Pepcid) 20 mg DAILY PO Last administered on 10/24/16 09:11; Admin Dose 20 MG; Start 10/21/16 at 09:00 Guaifenesin (Mucinex) 600 mg BID PO Last administered on 10/24/16 09:10; Admin Dose 600 MG; Start 10/23/16 at 21:00 Insulin Glargine (Lantus) 8 unit DAILY@08 SC Last administered on 10/24/16 09: 12; Admin Dose 8 UNIT; Start 10/24/16 at 08:00 Procedures Procedures [place] [id number] Radiology Main Line: [phone] DIAGNOSTIC IMAGING REPORT Patient: THIERRY KIRK : 1940 Age: 76 Sex: F MR #: [id number] DOS: 10/22/16 0800 Ordering MD: CARLOTTA DOMINGUEZ MD Location: [facility] [place] Room/Bed: [facility] PROCEDURE: CT Abdomen and Pelvis with Contrast CLINICAL INDICATION: Staging TECHNIQUE: Transaxial images were obtained through the abdomen and pelvis on a multi-slice scanner following the intravenous administration of iodinated contrast. No oral contrast had previously been given. Sagittal and coronal re- formations were subsequently reconstructed. One or more of the following dose reduction techniques were used: - Automated exposure control. - Adjustment of the mA and/or kV according to patient size. - Use of iterative reconstruction technique. Radiation dose: CTDIvol = 22.02 mGy; DLP = 1242.66 mGy-cm. COMPARISON: No prior studies are available for comparison. FINDINGS: Lung bases: Reticular changes are seen at the lung bases, to a greater extent on the left than the right. No effusion is identified. Liver: Normal in size and in attenuation. There is no focal lesion. The hepatic veins and portal veins appear patent. Gallbladder: The gallbladder is not identified. Bile ducts: There is mild intrahepatic and moderate extrahepatic biliary duct dilatation with the common bile duct measuring 1.6 cm to the head of the pancreas. No choledocholith is evident. Pancreas: The pancreatic duct is mildly dilated to approximately 2.5 mm in cross diameter, but no pancreatic mass or inflammation is evident. Spleen: Normal in size with no focal lesion. Adrenals: Normal with no mass identified. Kidneys, ureters and bladder: Multiple bilateral renal cysts are identified with the largest on the right measuring 5.2 cm in diameter and the largest on the left measuring 3.8 cm in diameter. There is no hydronephrosis. No intra renal calcification is evident. The ureters are not dilated. The bladder appears unremarkable. Reproductive organs: The uterus is absent and no adnexal mass is evident. Stomach, bowel, and mesentery: Substantial stool is seen within the colon but there is no evidence of bowel obstruction or inflammation. The stomach appears unremarkable. Appendix: The vermiform appendix is not identified. Peritoneum: No free intraperitoneal fluid or air is identified. There is a moderate-sized right periumbilical fat-containing hernia. Aorta: Normal in caliber with no aneurysmal dilatation. IVC: Unremarkable. Lymph nodes: No pathologically enlarged nodes are identified. Osseous structures: Moderate degenerative spine and disk changes are noted. Soft tissues: Several calcific densities are seen within the central anterior abdominal wall. Injection site granulomas are seen in the gluteal regions. IMPRESSION: 1. The gallbladder is not identified and presumably is surgically absent. There is mild intrahepatic and moderate extrahepatic bile duct dilatation with the common bile duct measuring 1.6 cm to the head of the pancreas. The pancreas is unremarkable except for mild dilatation of the pancreatic duct which measures 2.5 mm in cross diameter. This may be a sequelae of chronic pancreatitis. No choledocholith is evident.. Clinical and laboratory correlation is indicated to exclude biliary outflow obstruction. 2. Multiple bilateral renal cysts are evident without hydronephrosis or ureterolithiasis. The bladder appears unremarkable. 3. There is substantial stool within the colon without evidence of bowel obstruction or inflammation. The vermiform appendix is not identified. 4. Status post hysterectomy with no adnexal mass evident. 5. There is a fat-containing right periumbilical hernia. Multiple calcific densities are seen at the midline of the anterior abdominal wall which may be related to previous surgery. 6. Degenerative spine and disk changes. 7. Discoid atelectasis is noted within the posterior lung bases. Physician Moody Date Time Electronically viewed and signed by Physician Moody on 10/22/2016 16:10 RH/ CC: CARLOTTA DOMINGUEZ MD, VERA M MD Oct 24, 2016 19:28
[2016-10-25] VITALS (10 sets, daily range): BP systolic 117–139; BP diastolic 59–76; PULSE 54–73; RESP 18–20
[2016-10-25] MEDS: ACCUCHECK XX SCH (02:02)
[2016-10-25 06:58] LABS: BASOPHILS % 0.2 % (0.0-2.0); EOSINOPHILS # 0.3 10^3/ul (0.0-0.5); EOSINOPHILS % 5.2 % (0.0-7.0); HEMATOCRIT 31.6 % (37.0-47.0); HEMOGLOBIN 10.6 g/dl (12.0-16.0); LYMPHOCYTES # 1.4 10^3/ul (0.8-2.9); MEAN CORPUSCULAR HGB CONC 33.4 g/dl (32.0-37.0); MEAN CORPUSCULAR VOLUME 89.6 fl (82.0-101.0); MEAN PLATELET VOLUME 8.9 fl (7.4-10.4); MONOCYTE # 0.4 10^3/ul (0.3-0.9); MONOCYTES % 7.6 % (0.0-11.0); NEUTROPHIL # 3.5 10^3/ul (1.6-7.5); PLATELET COUNT 185 10^3/UL (140-440); RED BLOOD COUNT 3.52 10^6/ul (4.20-5.40); RED CELL DISTRIBUTION WIDTH 14.3 % (11.5-14.5); UNCORRECTED WBC 5.7 10^3/ul (4.8-10.8); WHITE BLOOD COUNT 5.7 10^3/ul (4.8-10.8)
[2016-10-25 07:03] LABS: CONDITION 1
[2016-10-25 07:09] LABS: POTASSIUM 3.8 mmol/L (3.5-5.1)
[2016-10-25 07:12] LABS: CALCIUM 8.9 mg/dl (8.4-10.2); CREATININE 0.77 mg/dl (0.44-1.00)
[2016-10-25] MEDS: INSULIN ASPART [NOVOLOG] 3 ML PEN SC SCH ×3 (08:00→17:18)
[2016-10-25] MEDS: GUAIFENESIN LA 600 MG TABSR PO SCH (08:57)
[2016-10-25] MEDS: FAMOTIDINE 20 MG TAB PO SCH (08:57)
[2016-10-25] MEDS: RIVAROXABAN 15 MG TABLET PO SCH ×2 (08:57→17:18)
[2016-10-25] MEDS: GABAPENTIN 300 MG CAP PO SCH (08:57)
[2016-10-25] MEDS: LINAGLIPTIN 5 MG TABLET PO SCH (08:58)
[2016-10-25] MEDS: INSULIN GLARGINE [LANtus] 3 ML PEN SC SCH (08:58)
[2016-10-25] MEDS: ASPIRIN (EC) 81 MG TAB PO SCH (08:58)
[2016-10-25] MEDS: SUCRALFATE 1 GM TAB PO SCH ×3 (08:58→17:18)
[2016-10-25] MEDS: MOMETASONE 0.24 GM INHALER INH SCH (09:00)
[2016-10-25] MEDS: GUAIFENESIN/CODEINE 5ML CUP PO PRN (10:28)
[2016-10-25] MEDS: ACETAMINOPHEN 325 MG TAB PO PRN (11:14)
--- NOTE | 2016-10-25 13:38 | CONS ---
Date/Time of Note Date/Time of Note DATE: 10/25/16 TIME: 13:37 Consult Date/Type/Reason Admit Date/Time Oct 20, 2016 at 00:00 Type of Consultation: pulmonary Ordering Provider: CARMINE ZUNIGA Subjective Breathing continues to improve she still has some shortness breath on exertion Mobility is limited Objective Vital Signs Date Time Temp Pulse Resp B/P Pulse Ox O2 Delivery O2 Flow Rate FiO2 10/25/16 12:14 98.6 71 20 139/64 98 10/25/16 01:23 2.0 10/24/16 20:00 Nasal Cannula Intake and Output 10/24/16 10/24/16 10/25/16 15:00 23:00 07:00 Intake Total 500 ml 400 ml Output Total 400 ml 1000 ml Balance 100 ml -600 ml PHYSICAL EXAMINATION: VITAL SIGNS: As above HEENT: Pupils are equal and react to light. NECK: Supple. No cervical adenopathy. No carotid bruits heard. LUNGS: Diminished air entry right lung CARDIOVASCULAR: S1, S2 normal. ABDOMEN: Soft, nontender. No organomegaly or masses noted. EXTREMITIES: No clubbing or cyanosis noted. NEUROLOGICAL: Awake. Results/Medications Result Diagram: 10/25/16 0541 10/25/16 0541 Results 24 hrs Laboratory Tests Test 10/24/16 17:00 10/24/16 20:18 10/25/16 01:32 10/25/16 05:41 Bedside Glucose 202 253 H 108 Anion Gap 11 Basophils # 0.0 Basophils % 0.2 Blood Urea Nitrogen 12 Calcium Level 8.9 Carbon Dioxide Level 34 H Chloride Level 99 Creatinine 0.77 Eosinophils # 0.3 Eosinophils % 5.2 Glucose Level 119 Hematocrit 31.6 L Hemoglobin 10.6 L Lymphocytes # 1.4 Lymphocytes % 25.0 Mean Corpuscular Hemoglobin 30.0 Mean Corpuscular Hemoglobin Concent 33.4 Mean Corpuscular Volume 89.6 Mean Platelet Volume 8.9 # Monocytes # 0.4 Monocytes % 7.6 Neutrophils # 3.5 Neutrophils % 62.0 Nucleated Red Blood Cells # 0.0 Nucleated Red Blood Cells % 0.0 Platelet Count 185 Potassium Level 3.8 Red Blood Count 3.52 L Red Cell Distribution Width 14.3 Sodium Level 140 White Blood Count 5.7 Test 10/25/16 08:00 10/25/16 12:11 Bedside Glucose 107 172 Medications Current Medications Albuterol (Ventolin Hfa) 2 puff Q4H PRN INH WHEEZING AND SOB Last administered on 10/21/16 08:47; Admin Dose 2 PUFF; Start 10/20/16 at 02:30 Aspirin (Halfprin) 81 mg DAILY PO Last administered on 10/25/16 08:58; Admin Dose 81 MG; Start 10/20/16 at 09:00 Gabapentin (Neurontin) 300 mg BID PO Last administered on 10/25/16 08:57; Admin Dose 300 MG; Start 10/20/16 at 09:00 Diagnostic Test (Pha) (Accucheck) 1 ea 02 XX Last administered on 10/25/16 02: 02; Admin Dose 1 EA; Start 10/21/16 at 02:00 Ondansetron HCl (Zofran Inj) 4 mg Q6H PRN IV NAUSEA AND/OR VOMITING; Start at 02:30 Acetaminophen (Tylenol Tab) 650 mg Q6H PRN PO PAIN AND OR ELEVATED TEMP Last administered on 10/25/16 11:14; Admin Dose 650 MG; Start 10/20/16 at 02:30 Miscellaneous Information 1 ea NOTE XX ; Start 10/20/16 at 03:00 Glucose (Glutose) 15 gm Q15M PRN PO DECREASED GLUCOSE; Start 10/20/16 at 03:00 Glucose (Glutose) 22.5 gm Q15M PRN PO DECREASED GLUCOSE; Start 10/20/16 at 03: 00 Dextrose (D50w Syringe) 25 ml Q15M PRN IV DECREASED GLUCOSE; Start 10/20/16 at 03:00 Dextrose (D50w Syringe) 50 ml Q15M PRN IV DECREASED GLUCOSE; Start 10/20/16 at 03:00 Glucagon (Glucagen) 1 mg Q15M PRN IM DECREASED GLUCOSE; Start 10/20/16 at 03:00 Glucose (Glutose) 15 gm Q15M PRN BUCCAL DECREASED GLUCOSE; Start 10/20/16 at 03 :00 Linagliptin (Tradjenta) 5 mg DAILY PO Last administered on 10/25/16 08:58; Admin Dose 5 MG; Start 10/20/16 at 09:00 Guaifenesin/ Codeine Phosphate (Robitussin Ac Liquid Cup) 10 ml Q4H PRN PO COUGH Last administered on 10/25/16 10:28; Admin Dose 10 ML; Start 10/20/16 at 03:00 Mometasone Furoate (Asmanex) 1 puff BID INH Last administered on 10/25/16 09:00 ; Admin Dose 1 PUFF; Start 10/20/16 at 09:00 Famotidine (Pepcid) 20 mg DAILY PO Last administered on 10/25/16 08:57; Admin Dose 20 MG; Start 10/21/16 at 09:00 Guaifenesin (Mucinex) 600 mg BID PO Last administered on 10/25/16 08:57; Admin Dose 600 MG; Start 10/23/16 at 21:00 Insulin Glargine (Lantus) 8 unit DAILY@08 SC Last administered on 10/25/16 08: 58; Admin Dose 8 UNIT; Start 10/24/16 at 08:00 Assessment/Plan Chief Complaint/Hosp Course IMPRESSION AND PLAN: 1. Acute pulmonary embolus and deep vein thrombosis 2. Recent air travel. 3. Poorly controlled diabetes given hemoglobin A1c. 4. Morbid obesity. 5. Probable underlying obstructive sleep apnea. 6. Pulmonary hypertension, likely combination of pulmonary embolus and obstructive sleep apnea. The patient will require: 1. Continued anticoagulation. The patient now placed on Xarelto. 2. Would hold off IVC filter placement as DVTs were below knee 3. Agree with malignancy workup would include CT abdomen and pelvis Agree with discharge planning to care home facility Problems: MODESTO WANG [facility], [facility] Oct 25, 2016 13:38
--- NOTE | 2016-10-25 13:39 | DS ---
Date/Time of Note Date/Time of Note DATE: 10/25/16 TIME: 13:34 Discharge Summary Admission/Discharge Info Admit Date/Time Oct 20, 2016 at 00:00 Discharge Date/Time Final Diagnosis 1. Bilateral pulmonary embolism. 2. Bilateral lower extremity DVT. 3. History of asthma. 4. Type 2 diabetes. 5. Essential hypertension. Patient Condition: Stable Consults 1. Dr. Abel Vasquez 2. Dr. Mooney [facility] Course This is a 76-year-old female with history of diabetes, hypertension, asthma, hemoglobin [facility] due to shortness of breath and weakness. She also had associated chest pain and cough. Patient did report that her symptoms progressively got worse and as such came to [facility]. Patient did have CTA done that did show her to have bilateral pulmonary malaise him. She also did have Doppler bilateral lower extremities also started to have bilateral DVT. She was seen by organic chemistry professor as well as by android framework developer. She was third on Xarelto medication for her pulmonary embolism and bilateral lower extremity DVT. She was continued on bronchodilators and provide with oxygen for shortness of breath. During her course of stay she still resumed to have some shortness of breath and hypoxia. Patient also did have hypercoagulability workup done by organic chemistry professor. We did discuss the patient with options with discharge planning. After discussion patient did agree [facility] for further management and care. We also did case management involved to get patient authorization to follow-up with organic chemistry professor and android framework developer as outpatient. During her course of stay she did improve. She was continued on insulin regimen for her type 2 diabetes and antihypertensives for hypertension. The plan of care was discussed with the patient and patient did verbalize understanding. On the day of discharge patient was in stable condition Discussed plan of care with Disposition: [facility] facility Discharge process time is 40 minutes Home Meds Active Scripts Rivaroxaban* (Xarelto*) 20 Mg Tablet, 20 MG PO DAILY for 30 Days, TAB 1. Take starting November 10, 2016 2. Further medication refill per your own primary care provider Prov:CARMINE ZUNIGA 10/22/16 Rivaroxaban* (Xarelto*) 15 Mg Tablet, 15 MG PO BID for 18 Days, TAB Take until November 09, 2016 Prov:CARMINE ZUNIGA 10/22/16 Albuterol Sulfate* (Albuterol Sulfate* Neb) 0.083%-3 Ml Neb, 2.5 MG NEB Q4 Y for SHORTNESS OF BREATH, #30 EA Prov:ALTA COTTON MD 10/12/16 Prednisone* (Prednisone*) 20 Mg Tab, 40 MG PO DAILY for 3 Days, TAB with food or milk Prov:ALTA COTTON MD 10/12/16 Albuterol Sulfate* (Proair HFA*) 8.5 Gm Hfa.aer.ad, 2 PUFF INH Q4H Y for WHEEZING AND SOB, #1 INHALER Prov:ALTA COTTON MD 10/12/16 Reported Medications Ergocalciferol* (Drisdol* (Vitamin D2)) 50,000 Unit Capsule, 91715 UNIT PO Q7D, CAP 10/12/16 Fenofibrate* (Lipofen*) 150 Mg Capsule, 160 MG PO DAILY, TAB 10/12/16 Gabapentin* (Gabapentin*) 300 Mg Capsule, 300 MG PO BID, #60 CAP 10/12/16 Sitagliptin* (Januvia*) 50 Mg Tablet, 50 MG PO DAILY, #30 TAB 10/12/16 Metformin* (Glucophage*) 850 Mg Tablet, 850 MG PO BID, #30 TAB 10/12/16 Omeprazole* (Omeprazole*) 40 Mg Capsule.dr, 40 MG PO DAILY, #30 CAP 10/12/16 Valsartan-Hydrochlorothiazide (Valsartan-HCTZ) 320-25 Mg Tablet, 1 TAB PO DAILY , #30 TAB 10/12/16 Sucralfate* (Carafate*) 1 Gm Tab, 1 GM PO AC MEALS AND BEDTIME, TAB 10/12/16 Beclomethasone Dip* (Qvar 40*) 7.3 Gm Inha, 1 PUFF INH BID, #1 INHALER 10/12/16 Aspirin* (Aspirin* EC) 81 Mg Tablet.dr, 81 MG PO DAILY, TAB 10/12/16 Discontinued Reported Medications Albuterol Sulfate* (Proair HFA*) 8.5 Gm Hfa.aer.ad, 2 PUFF INH Q4H Y for WHEEZING AND SOB, #1 INHALER 10/12/16 Discontinued Scripts Azithromycin* (Zithromax*) 250 Mg Tablet, 250 MG PO .ZPACK DIRECTED, #6 TAB TAKE 500 MG (2 TABS) THE FIRST DAY THEN 250 MG (1 TAB) DAYS 2-5 Prov:ALTA COTTON MD 10/12/16 Follow-up Plan CONDITION Patient Condition: Stable HOME CARE INSTRUCTIONS: Diet Instructions: Low Fat /CholesterolSpecial Diet: carbohydrate controlled FOLLOW UP/APPOINTMENTS Appointments 1. Follow-up with Dr. Abel Vasquez in one week 2. Follow up with Dr. Jesica Ngo in one week Pending Labs Laboratory Tests Test 10/24/16 17:00 10/24/16 20:18 10/25/16 01:32 10/25/16 05:41 Bedside Glucose 202mg/dL (70-220) 253mg/dL (70-220) 108mg/dL (70-220) Anion Gap 11 (8-16) Basophils # 0.010^3/ul (0.0-0.1) Basophils % 0.2% (0.0-2.0) Blood Urea Nitrogen 12mg/dl (7-20) Calcium Level 8.9mg/dl (8.4-10.2) Carbon Dioxide Level 34mmol/L (21-31) Chloride Level 99mmol/L (97-110) Creatinine 0.77mg/dl (0.44-1.00) Eosinophils # 0.310^3/ul (0.0-0.5) Eosinophils % 5.2% (0.0-7.0) Glucose Level 119mg/dl (70-220) Hematocrit 31.6% (37.0-47.0) Hemoglobin 10.6g/dl (12.0-16.0) Lymphocytes # 1.410^3/ul (0.8-2.9) Lymphocytes % 25.0% (15.0-51.0) Mean Corpuscular Hemoglobin 30.0pg (29.0-33.0) Mean Corpuscular Hemoglobin Concent 33.4g/dl (32.0-37.0) Mean Corpuscular Volume 89.6fl (82.0-101.0) Mean Platelet Volume 8.9fl (7.4-10.4) Monocytes # 0.410^3/ul (0.3-0.9) Monocytes % 7.6% (0.0-11.0) Neutrophils # 3.510^3/ul (1.6-7.5) Neutrophils % 62.0% (39.0-77.0) Nucleated Red Blood Cells # 0.010^3/ul (0.0-0.0) Nucleated Red Blood Cells % 0.0/100WBC (0.0-0.0) Platelet Count 96275^3/UL (140-440) Potassium Level 3.8mmol/L (3.5-5.1) Red Blood Count 3.5210^6/ul (4.20-5.40) Red Cell Distribution Width 14.3% (11.5-14.5) Sodium Level 140mmol/L (135-144) White Blood Count 5.710^3/ul (4.8-10.8) Test 10/25/16 08:00 10/25/16 12:11 Bedside Glucose 107mg/dL (70-220) 172mg/dL (70-220) CARMINE ZUNIGA Oct 25, 2016 13:39
--- NOTE | 2016-10-25 15:46 | CONS ---
Date/Time of Note Date/Time of Note DATE: 10/25/16 TIME: 15:46 Assessment/Plan Assessment/Plan Chief Complaint/Hosp Course 1. HYPERCOAGULABLE STATE Acute pulmonary embolus and deep vein thrombosis- BL Continued anticoagulation. CONT Xarelto. NO INDICATIONS FOR IVC filter AT PRESENT CT abdomen and pelvis- NEG tumor markers- N hypercoagulable profile- P DC PLANNING -PER PRIMARY 2. Recent air travel. 3. Poorly controlled diabetes given hemoglobin A1c. 4. Morbid obesity. 5. Probable underlying obstructive sleep apnea. 6. Pulmonary hypertension, likely combination of pulmonary embolus and obstructive sleep apnea. HYPOXIA- 2 TO # 1 Problems: Consultation Date/Type/Reason Admit Date/Time Oct 20, 2016 at 00:00 Initial Consult Date 10/21/16 Type of Consultation: [facility] Referring Provider: CARMINE ZUNIGA Exam/Review of Systems Vital Signs Vitals Vital Signs Date Time Temp Pulse Resp B/P Pulse Ox O2 Delivery O2 Flow Rate FiO2 10/25/16 12:14 98.6 71 20 139/64 98 10/25/16 08:00 Nasal Cannula 2.0 Intake and Output 10/24/16 10/24/16 10/25/16 15:00 23:00 07:00 Intake Total 500 ml 400 ml Output Total 400 ml 1000 ml Balance 100 ml -600 ml Results Result Diagram: 10/25/16 0541 10/25/16 0541 Results 24 hrs Laboratory Tests Test 10/24/16 17:00 10/24/16 20:18 10/25/16 01:32 10/25/16 05:41 Bedside Glucose 202 253 H 108 Anion Gap 11 Basophils # 0.0 Basophils % 0.2 Blood Urea Nitrogen 12 Calcium Level 8.9 Carbon Dioxide Level 34 H Chloride Level 99 Creatinine 0.77 Eosinophils # 0.3 Eosinophils % 5.2 Glucose Level 119 Hematocrit 31.6 L Hemoglobin 10.6 L Lymphocytes # 1.4 Lymphocytes % 25.0 Mean Corpuscular Hemoglobin 30.0 Mean Corpuscular Hemoglobin Concent 33.4 Mean Corpuscular Volume 89.6 Mean Platelet Volume 8.9 # Monocytes # 0.4 Monocytes % 7.6 Neutrophils # 3.5 Neutrophils % 62.0 Nucleated Red Blood Cells # 0.0 Nucleated Red Blood Cells % 0.0 Platelet Count 185 Potassium Level 3.8 Red Blood Count 3.52 L Red Cell Distribution Width 14.3 Sodium Level 140 White Blood Count 5.7 Test 10/25/16 08:00 10/25/16 12:11 Bedside Glucose 107 172 Medications Medications Current Medications Albuterol (Ventolin Hfa) 2 puff Q4H PRN INH WHEEZING AND SOB Last administered on 10/21/16 08:47; Admin Dose 2 PUFF; Start 10/20/16 at 02:30 Aspirin (Halfprin) 81 mg DAILY PO Last administered on 10/25/16 08:58; Admin Dose 81 MG; Start 10/20/16 at 09:00 Gabapentin (Neurontin) 300 mg BID PO Last administered on 10/25/16 08:57; Admin Dose 300 MG; Start 10/20/16 at 09:00 Diagnostic Test (Pha) (Accucheck) 1 ea 02 XX Last administered on 10/25/16 02: 02; Admin Dose 1 EA; Start 10/21/16 at 02:00 Ondansetron HCl (Zofran Inj) 4 mg Q6H PRN IV NAUSEA AND/OR VOMITING; Start at 02:30 Acetaminophen (Tylenol Tab) 650 mg Q6H PRN PO PAIN AND OR ELEVATED TEMP Last administered on 10/25/16 11:14; Admin Dose 650 MG; Start 10/20/16 at 02:30 Miscellaneous Information 1 ea NOTE XX ; Start 10/20/16 at 03:00 Glucose (Glutose) 15 gm Q15M PRN PO DECREASED GLUCOSE; Start 10/20/16 at 03:00 Glucose (Glutose) 22.5 gm Q15M PRN PO DECREASED GLUCOSE; Start 10/20/16 at 03: 00 Dextrose (D50w Syringe) 25 ml Q15M PRN IV DECREASED GLUCOSE; Start 10/20/16 at 03:00 Dextrose (D50w Syringe) 50 ml Q15M PRN IV DECREASED GLUCOSE; Start 10/20/16 at 03:00 Glucagon (Glucagen) 1 mg Q15M PRN IM DECREASED GLUCOSE; Start 10/20/16 at 03:00 Glucose (Glutose) 15 gm Q15M PRN BUCCAL DECREASED GLUCOSE; Start 10/20/16 at 03 :00 Linagliptin (Tradjenta) 5 mg DAILY PO Last administered on 10/25/16 08:58; Admin Dose 5 MG; Start 10/20/16 at 09:00 Guaifenesin/ Codeine Phosphate (Robitussin Ac Liquid Cup) 10 ml Q4H PRN PO COUGH Last administered on 10/25/16 10:28; Admin Dose 10 ML; Start 10/20/16 at 03:00 Mometasone Furoate (Asmanex) 1 puff BID INH Last administered on 10/25/16 09:00 ; Admin Dose 1 PUFF; Start 10/20/16 at 09:00 Famotidine (Pepcid) 20 mg DAILY PO Last administered on 10/25/16 08:57; Admin Dose 20 MG; Start 10/21/16 at 09:00 Guaifenesin (Mucinex) 600 mg BID PO Last administered on 10/25/16 08:57; Admin Dose 600 MG; Start 10/23/16 at 21:00 Insulin Glargine (Lantus) 8 unit DAILY@08 SC Last administered on 10/25/16 08: 58; Admin Dose 8 UNIT; Start 10/24/16 at 08:00 CARLOTTA DOMINGUEZ MD Oct 25, 2016 15:46
[2016-10-26 17:38] LABS: HOMOCYSTEINE - CARDIOVASCULAR 22.1 umol/L (<10.4)
== END 2016-10-25 18:15 | DRG 175 ==
LOC: E/R 18:35 → MS4 10-20
PROVIDERS: ADMIT Internal Medicine; ATTEND Internal Medicine
DX: I26.09 Other pulmonary embolism with acute cor pulmonale (principal); D68.59 Other primary thrombophilia; I27.2 Other secondary pulmonary hypertension; I82.443 Acute embolism and thrombosis of tibial vein, bilateral; E11.9 Type 2 diabetes mellitus without complications; I10 Essential (primary) hypertension; J45.909 Unspecified asthma, uncomplicated; E66.9 Obesity, unspecified; Z68.35 Body mass index [BMI] 35.0-35.9, adult; G47.33 Obstructive sleep apnea (adult) (pediatric); R09.02 Hypoxemia
CPT/HCPCS: 36415; 36600; 71010; 71275; 74177; 80048; 80053; 80061; 81240; 82306; 82378; 82607; 82728; 82746; 82803; 82947; 82962; 83036; 83090; 83540; 83615; 83690; 83735; 83890; 84443; 84484; 85025; 85300; 85302; 85305; 85610; 85651; 85730; 86038; 86147; 86300; 86301; 86304; 87040; 93005; 93923; 94640; 94644; 94664; 96374; 96375; 97163; J1644; J1815; J2405; J7030; Q9967

== ENCOUNTER 2017-03-01 18:11 | Emergency (ER) | payer BC, MEDICAID ==
[~2017-03-01] VITALS: Ht 160 cm; Wt 87.5 kg
[~2017-03-01 18:11] MED LIST changes: -AZIT250T94 PO; -PRED20TA PO; +RIVA15TA PO; +RIVA20TA PO
[2017-03-01 18:14] VITALS: Ht 160 cm; Wt 87.5 kg
--- NOTE | 2017-03-01 20:42 | RADRPT ---
PROCEDURE: US DVT. CLINICAL INDICATION: Calf pain. History of deep venous thrombosis. TECHNIQUE: Multiple longitudinal and transverse images of the bilateral lower extremity veins were obtained with hamilton scale and color Doppler imaging. 2D grayscale measurements with compression, co donny Doppler flow, and augmentation was performed. COMPARISON: 10/20/2016. FINDINGS: The bilateral common femoral, femoral and popliteal veins are patent and fully compressible. Color flow demonstrates normal filling of the vessel lumen. Normal waveforms are visualized and there is normal response to augmentation. The calf veins are diminutive in size and compressible. The acute deep venous thrombosis seen within the right posterior tibial and left posterior tibial and peroneal veins is no longer observed. Soft tissues are unremarkable. IMPRESSION: No evidence of acute deep venous thrombosis of the bilateral lower extremities. RPTAT: HLST .Rufina Sandoval MD, Date Time Electronically viewed and signed by .Rufina Sandoval MD, on 03/01/2017 20:42 .T/
[2017-03-01] MEDS ORDERED: NAPR-260 PO (20:57)
[2017-03-01] MEDS ORDERED: TRAM50TA2 PO (20:58)
--- NOTE | 2017-03-01 21:06 | ERD ---
ER Documentation Chief Complaint Date/Time DATE: 03/01/17 TIME: 20:59 Chief Complaint RIGHT CALF PAIN X 1 MOS, WORSEN X 1 WEEK, HX ARTHERITIS HPI Patient is a 76-year-old female with a past medical history of hypertension, DM , hyperlipidemia, osteoarthritis, DVTs presents to the emergency department with right calf pain 1 month. Patient states over the last week her calf pain has been getting worse. Patient states she was hospitalized approximately 3 months ago and at that time she was diagnosed with a DVT. Patient states she took anticoagulation medications for 1 month only. Patient is unsure if DVTs resolved given that she did not receive follow up care. Patient denies any recent falls or trauma. Patient denies any recent surgery or prolonged sitting. Patient denies any fevers, chills, chest pain, shortness of breath, nausea, vomiting, LOC. Patient ambulates with a cane. ROS All systems reviewed and are negative except as per history of present illness. Medications Home Meds Active Scripts Tramadol HCl (Tramadol HCl) 50 Mg Tablet, 50 MG PO Q4 Y for PAIN, #20 TAB Prov:TANIKA RANGEL PA-C 03/01/17 Naproxen* (Naprosyn*) 500 Mg Tablet, 500 MG PO BID Y for PAIN AND/OR INFLAMMATION, #30 TAB Prov:TANIKA RANGEL PA-C 03/01/17 Rivaroxaban* (Xarelto*) 20 Mg Tablet, 20 MG PO DAILY for 30 Days, TAB 1. Take starting November 10, 2016 2. Further medication refill per your own primary care provider Prov:CARMINE ZUNIGA 10/22/16 Rivaroxaban* (Xarelto*) 15 Mg Tablet, 15 MG PO BID for 18 Days, TAB Take until November 09, 2016 Prov:CARMINE ZUNIGA 10/22/16 Albuterol Sulfate* (Albuterol Sulfate* Neb) 0.083%-3 Ml Neb, 2.5 MG NEB Q4 Y for SHORTNESS OF BREATH, #30 EA Prov:ALTA COTTON MD 10/12/16 Albuterol Sulfate* (Proair HFA*) 8.5 Gm Hfa.aer.ad, 2 PUFF INH Q4H Y for WHEEZING AND SOB, #1 INHALER Prov:ALTA COTTON MD 10/12/16 Reported Medications Ergocalciferol* (Drisdol* (Vitamin D2)) 50,000 Unit Capsule, 98192 UNIT PO Q7D, CAP 10/12/16 Fenofibrate* (Lipofen*) 150 Mg Capsule, 160 MG PO DAILY, TAB 10/12/16 Gabapentin* (Gabapentin*) 300 Mg Capsule, 300 MG PO BID, #60 CAP 10/12/16 Sitagliptin* (Januvia*) 50 Mg Tablet, 50 MG PO DAILY, #30 TAB 10/12/16 Metformin* (Glucophage*) 850 Mg Tablet, 850 MG PO BID, #30 TAB 10/12/16 Omeprazole* (Omeprazole*) 40 Mg Capsule.dr, 40 MG PO DAILY, #30 CAP 10/12/16 Valsartan-Hydrochlorothiazide (Valsartan-HCTZ) 320-25 Mg Tablet, 1 TAB PO DAILY , #30 TAB 10/12/16 Sucralfate* (Carafate*) 1 Gm Tab, 1 GM PO AC MEALS AND BEDTIME, TAB 10/12/16 Beclomethasone Dip* (Qvar 40*) 7.3 Gm Inha, 1 PUFF INH BID, #1 INHALER 10/12/16 Aspirin* (Aspirin* EC) 81 Mg Tablet.dr, 81 MG PO DAILY, TAB 10/12/16 Allergies Allergies: Coded Allergies: No Known Drug Allergies (Verified Allergy, Unknown, 03/01/17) PMhx/Soc History of Surgery: Yes (STOMACH SURG) Anesthesia Reaction: No Hx Neurological Disorder: No Hx Respiratory Disorders: Yes (ASTHMA) Hx Cardiac Disorders: Yes (HTN) Hx Psychiatric Problems: No Hx Miscellaneous Medical Probl: Yes (see notes) Hx Alcohol Use: No Hx Substance Use: No Hx Tobacco Use: No (10YRS AGO) FmHx Family History: No diabetes Physical Exam Vitals Vital Signs Date Time Temp Pulse Resp B/P Pulse Ox O2 Delivery O2 Flow Rate FiO2 03/01/17 21:09 98.2 81 20 168/81 96 Room Air 03/01/17 18:14 98.1 89 20 144/67 99 Physical Exam GENERAL: Well-developed, well-nourished female. Appears in no acute distress. HEAD: Normocephalic, atraumatic. EYES: Pupils are equally reactive bilaterally. EOMs grossly intact. No conjunctival erythema. ENT: Moist mucous membranes. No uvula deviation. No kissing tonsils. NECK: Supple. No meningismus. Normal range of motion of the neck. LUNG: Clear to auscultation bilaterally. No rhonchi, wheezing, rales or coarse breath sounds. HEART: Regular rate and rhythm. No murmurs, rubs or gallops. EXTREMITIES: Equal pulses bilaterally. No peripheral clubbing, cyanosis or edema. No unilateral leg swelling. NEUROLOGIC: Alert and oriented. Moving all four extremities without any difficulty. Normal speech. Steady gait. SKIN: Normal color. Warm and dry. No rashes or lesions. RIGHT LE: No deformity, erythema, ecchymosis or swelling. Skin intact. Normal ROM of knee and ankle. Tender to palpation of right calf. Pain elicited in calf with dorsiflexion of foot. Sensation intact to light touch. Neurovascularly intact. (Able to plantarflex, dorsiflex, natan foot, invert foot, raise big toe. ) 2+ DP and DT pulses. uffbox tender Procedures/MDM ED COURSE: The patient was stable throughout ED course. I kept the patient and/or family informed of laboratory and diagnostic imaging results throughout the ED course. DIAGNOSTIC IMAGING: Read by radiologist. Patient: THIERRY KIRK : 1940 Age: 76 Sex: F MR #: [id number] DOS: 03/01/17 190 Ordering MD: TANIKA RANGEL PA-C Location: [facility] Room/Bed: PROCEDURE: US DVT. CLINICAL INDICATION: Calf pain. History of deep venous thrombosis. TECHNIQUE: Multiple longitudinal and transverse images of the bilateral lower extremity veins were obtained with hamilton scale and color Doppler imaging. 2D grayscale measurements with compression, color Doppler flow, and augmentation was performed. COMPARISON: 10/20/2016. FINDINGS: The bilateral common femoral, femoral and popliteal veins are patent and fully compressible. Color flow demonstrates normal filling of the vessel lumen. Normal waveforms are visualized and there is normal response to augmentation. The calf veins are diminutive in size and compressible. The acute deep venous thrombosis seen within the right posterior tibial and left posterior tibial and peroneal veins is no longer observed. Soft tissues are unremarkable. IMPRESSION: No evidence of acute deep venous thrombosis of the bilateral lower extremities. RPTAT: HLST .Rufina Sandoval MD, MD Date Time Electronically viewed and signed by .Rufina Sandoval MD, MD on 03/01/2017 20:42 .T/ CC: TANIKA RANGEL PA-C MEDICAL DECISION MAKING: This is a 76 year old female with history of DVTs who presents to the ED with right lower leg pain. Vital signs were reviewed. Patient was afebrile. Patient was not hypoxic. Doppler US studies were obtained of both lower extremities. US showed no evidence of acute deep venous thrombosis of the bilateral lower extremities. Patient denied any recent trauma or falls. Xray imaging was offered to the patient and her daughter, however patient and daughter declined studies at this time. Given these findings, the patients presentation is most consistent with osteoarthritis vs muscle strain. I have a much lower clinical concern for dislocation, fracture, septic joint, gout, osteomyelitis, DVT or compartment syndrome. At this time, unable to rule out any muscle, tendon or ligament injuries. Patient was advised to consider MRI imaging on an outpatient basis if pain persists. PRESCRIPTIONS: Naproxen, Tramadol DISCHARGE: At this time, patient is stable for discharge and outpatient management. RICE therapy and ROM exercises were advised to avoid stiffness. I have instructed the patient to follow-up with his/her primary care physician in 1-2 days. I have discussed with the patient the possibility of needing to see an rn documentation specialist for further workup and imaging if the pain persists. I have instructed the patient to promptly return to the ER for any new or worsening symptoms including increased pain, swelling, redness, warmth or fever. The patient and/or family expressed understanding of and agreement with this plan. All questions were answered. Home care instructions were provided. Patients blood pressure was elevated (>120/80) but appears stable without evidence of hypertensive emergency, hypertensive urgency or end-organ failure. I had discussion with the patient about the risks of hypertension. I have advised the patient to follow up with his/her primary care physician for outpatient monitoring and treatment for hypertension in 2-3 days. I have instructed the patient to return to the ER for any new or worsening symptoms including chest pain, shortness of breath, headache, blurred vision, confusion, nausea, vomiting or LOC. Departure Diagnosis: Primary Impression: Pain of right calf Condition: Stable Patient Instructions: Possible Causes of Low Back or Leg Pain Additional Instructions: Call your primary care doctor TOMORROW for an appointment during the next 1-2 days.See the doctor sooner or return here if your condition worsens before your appointment time. TANIKA RANGEL PA-C Mar 01, 2017 21:06
[2017-03-01 21:09] VITALS: BP 168/81; PULSE 81; RESP 20; TEMP 98.2
== END 2017-03-01 21:09 | disposition home or self-care (01) ==
LOC: FTE 18:11
DX: M79.604 Pain in right leg (principal); I10 Essential (primary) hypertension; E11.9 Type 2 diabetes mellitus without complications; J45.909 Unspecified asthma, uncomplicated; Z79.01 Long term (current) use of anticoagulants; Z79.82 Long term (current) use of aspirin; Z79.84 Long term (current) use of oral hypoglycemic drugs; Z87.891 Personal history of nicotine dependence
CPT/HCPCS: 93970

== ENCOUNTER 2017-09-22 06:11 | Inpatient (IN) | END 2017-10-01 19:25 | disposition home or self-care (01) | DRG 202 ==

== ENCOUNTER 2017-12-17 18:41 | Emergency (ER) | END 2017-12-18 00:45 | disposition home or self-care (01) ==

== ENCOUNTER 2017-12-25 10:00 | Emergency (ER) | END 2017-12-25 16:24 | disposition home or self-care (01) ==

== ENCOUNTER 2019-02-05 08:24 | Emergency (ER) | payer BC ==
[~2019-02-05] VITALS: Ht 274.3 cm; Wt 79.4 kg
[~2019-02-05 08:24] MED LIST changes: +ACET500C5 PO; -ALBU2.5V3 NEB; -ALBU8.5H3 INH; +ALBU8.5H8 INH; -ASPI-664 PO; +ASPI-817 PO; +AZIT250T13 PO; -BECL8.7A INH; +BECL8.7H NASAL; +BENZ-6 PO; +CETI10CA PO; +GUAI473L22 PO; +IPRA3AMP29 INHALATION; +LEVO500T10 PO; +LISI-313 PO; +MED4DP PO; +MOME220A2 INH; +NAPR-985 PO; +PRED20TA PO; -RIVA15TA PO; -RIVA20TA PO; -VALS1TAB82 PO
[2019-02-05 08:27] VITALS: Ht 274.3 cm; Wt 79.4 kg
[2019-02-05] MEDS ORDERED: HYDROCODONE/APAP (5/325) TAB PO ONE (09:00)
[2019-02-05] MEDS ORDERED: FENO160T13 PO (10:11)
[2019-02-05] MEDS ORDERED: ASPI-817 PO (10:11)
[2019-02-05] MEDS ORDERED: METF850T13 PO (10:12)
[2019-02-05] MEDS ORDERED: OMEP40CA6 PO (10:12)
[2019-02-05] MEDS ORDERED: VALS1TAB82 PO (10:13)
[2019-02-05] MEDS ORDERED: SUCR1TAB56 PO (10:13)
[2019-02-05] MEDS ORDERED: SITA50TA2 PO (10:13)
--- NOTE | 2019-02-05 10:38 | ERD ---
ER Documentation Chief Complaint Chief Complaint NECK PAIN X 2 WEEKS, DID NOT TAKE MEDS YET HPI This is a 78-year-old female with a history of hypertension, hyperlipidemia, previous pulmonary embolism who presents to the ER for evaluation of neck pain. The patient states that she had neck pain for the past 2 weeks and states that it is worse with movement of her neck. She denies any headache, fevers, chills, nausea or vomiting associated with this. She has been taking some Tylenol with minimal relief however came to the ER today for evaluation. She localizes the pain to her neck and describes it as an achy pain. The patient denies any blurred vision or chest pain associated with her symptoms. ROS All systems reviewed and are negative except as per history of present illness. Medications Home Meds Reported Medications Valsartan-Hydrochlorothiazide (Valsartan-HCTZ) 320-25 Mg Tablet, 1 TAB PO DAILY, #30 TAB 02/05/19 Sucralfate* (Carafate*) 1 Gm Tab, 1 GM PO AC MEALS AND BEDTIME, TAB 02/05/19 Sitagliptin* (Januvia*) 50 Mg Tablet, 50 MG PO DAILY, #30 TAB 02/05/19 Omeprazole* (Omeprazole*) 40 Mg Capsule.dr, 40 MG PO DAILY, #30 CAP 02/05/19 Metformin Hcl* (Metformin Hcl*) 850 Mg Tablet, 850 MG PO WITH BREAKFAST DINNE, #60 TAB 02/05/19 Fenofibrate, Micronized* (Fenofibrate*) 160 Mg Tablet, 160 MG PO DAILY, TAB 02/05/19 Aspirin* (Aspirin* EC) 81 Mg Tablet.dr, 81 MG PO DAILY, TAB 02/05/19 Discontinued Reported Medications Ergocalciferol* (Drisdol* (Vitamin D2)) 50,000 Unit Capsule, 51870 UNIT PO Q7D, CAP 10/12/16 Fenofibrate* (Lipofen*) 150 Mg Capsule, 160 MG PO DAILY, TAB 10/12/16 Gabapentin* (Gabapentin*) 300 Mg Capsule, 300 MG PO BID, #60 CAP 10/12/16 Sitagliptin* (Januvia*) 50 Mg Tablet, 50 MG PO DAILY, #30 TAB 10/12/16 Metformin* (Glucophage*) 850 Mg Tablet, 850 MG PO BID, #30 TAB 10/12/16 Omeprazole* (Omeprazole*) 40 Mg Capsule.dr, 40 MG PO DAILY, #30 CAP 10/12/16 Sucralfate* (Carafate*) 1 Gm Tab, 1 GM PO AC MEALS AND BEDTIME, TAB 10/12/16 Aspirin* (Aspirin* EC) 81 Mg Tablet.dr, 81 MG PO DAILY, TAB 10/12/16 Discontinued Scripts Albuterol Sulfate* (Proair HFA*) 8.5 Gm Hfa.aer.ad, 2 PUFF INH Q4, #1 INHALER Prov:SONG KAMARA MD 12/25/17 Methylprednisolone* (Medrol* DOSE PACK) 4 Mg/Dose-Pack Tab.ds.pk, 4 MG PO . DIRECTED, #1 PACKET Prov:SONG KAMARA MD 12/25/17 Prednisone* (Prednisone*) 20 Mg Tab, 60 MG PO DAILY for 5 Days, TAB Prov:MARA MCCABE MD 12/17/17 Ipratropium-Albuterol (Ipratropium-Albuterol) 0.5-3 Mg/3 Ml Ampul.neb, 3 ML INH ALATION Q6, #30 VIAL Prov:MARA MCCABE MD 12/17/17 Azithromycin* (Azithromycin*) 250 Mg Tablet, 250 MG PO DAILY, #4 TAB Prov:MARA MCCABE MD 12/17/17 Guaifenesin-Codeine Phosphate* (Guaifenesin* AC Cough Syrup) 473 Ml Liquid, 5 ML PO QHS PRN for COUGH for 5 Days, #120 ML Prov:MARA MCCABE MD 12/17/17 Lisinopril* (Lisinopril*) 5 Mg Tablet, 5 MG PO DAILY, #30 TAB Prov:JAVED MILLAN ROD PILER 10/01/17 Levofloxacin* (Levofloxacin*) 500 Mg Tablet, 500 MG PO DAILY for 5 Days, #5 TAB Prov:JAVED MILLAN ROD PILER 10/01/17 Methylprednisolone* (Medrol* DOSE PACK) 4 Mg/Dose-Pack Tab.ds.pk, 4 MG PO . DIRECTED, #1 PACKET Prov:CARMINE ZUNIGA 09/24/17 Mometasone Furoate (Asmanex) 220 Mcg Aer.pow.ba, 1 PUFF INH DAILY, #1 INH Prov:REGIDORJEANETTECARMINE 09/24/17 Benzonatate* (Tessalon Perle*) 100 Mg Capsule, 100 MG PO Q8H PRN for COUGH, #30 CAP Prov:REGIDORCARMINE 09/24/17 Albuterol Sulfate* (Proair HFA*) 8.5 Gm Hfa.aer.ad, 2 PUFF INH Q4H PRN for WHEEZING AND SOB, #1 INHALER Prov:REGIDORJEANETTECARMINE 09/24/17 Cetirizine Hcl* (Zyrtec*) 10 Mg Capsule, 10 MG PO DAILY, #30 TAB.CHEW Prov:KITA CHINO. ROD PILER 09/22/17 Beclomethasone Dipropionate (QNASL) 8.7 Gm Hfa.aer.ad, 2 SPRAYS NASAL DAILY, #1 BOTTLE PER NOSTRIL Prov:KITA CHINO. ROD PILER 09/22/17 Acetaminophen* (Tylophen*) 500 Mg Capsule, 1 CAP PO Q6H PRN for PAIN AND OR ELEVATED TEMP, #20 CAP Prov:KITA CHINO ROD PILER 09/22/17 Naproxen* (Naprosyn*) 500 Mg Tablet, 500 MG PO BID PRN for PAIN AND/OR INFLAMMATION, #30 TAB Prov:TANIKA RANGEL PA-C 03/01/17 Allergies Allergies: Coded Allergies: No Known Drug Allergies (Verified Allergy, Unknown, 02/05/19) PMhx/Soc History of Surgery: Yes (hysterectomy, hernia repair, right shoulder sx) Anesthesia Reaction: No Hx Neurological Disorder: No Hx Respiratory Disorders: No Hx Cardiac Disorders: Yes (HTN) Hx Psychiatric Problems: No Hx Miscellaneous Medical Probl: Yes (HTN, DM, H.OF ASTHMA, MECCA.DVT BLE'S AND MECCA.PE) Hx Alcohol Use: No Hx Substance Use: No Hx Tobacco Use: No Smoking Status: Never smoker Physical Exam Vitals Vital Signs Date Temp Pulse Resp B/P (MAP) Pulse Ox O2 O2 Flow FiO2 Time Delivery Rate 02/05/19 56 158/69 09:46 (98) 02/05/19 60 19 172/77 100 Room Air 08:51 (108) 02/05/19 98.0 66 18 204/94 99 08:27 (130) Physical Exam INITIAL VITAL SIGNS: Reviewed by me GENERAL: The patient is well developed and appropriate for usual state of health in no apparent distress HEENT: Pupils equal, round, and reactive to light. EOMI. There is no scleral icterus. NECK: C-spine is soft and supple, there is no meningismus. Negative Kernig sign, negative Brudzinski sign, no midline tenderness there is no cervical lymphadenopathy. LUNGS: Clear to auscultation bilaterally. There are no rales, wheezes or rhonchi. HEART: Regular rate and rhythm, no murmurs, clicks, rubs or gallops. ABDOMEN: Soft, non-tender, non-distended. There are bowel sounds in all four quadrants. No rebound or guarding. EXTREMITIES: There is no peripheral cyanosis or edema. No focal swelling or erythema. NEUROLOGICAL: The patient moves all four extremities with 5/5 strength. Cranial nerves II - XII are intact. Normal gait. Alert and oriented SKIN: There is no apparent rash or petechiae. HEME/LYMPHATIC: There is no evidence of excessive bruising or lymphedema. PSYCHIATRIC: The patient does not appear anxious or depressed. Result Diagram: 02/05/19 0912 02/05/19911 Results 24 hrs Laboratory Tests Test 02/05/19 09:12 White Blood Count 5.2 10^3/ul Red Blood Count 3.95 10^6/ul Hemoglobin 11.0 g/dl Hematocrit 35.0 % Mean Corpuscular Volume 88.6 fl Mean Corpuscular Hemoglobin 27.8 pg Mean Corpuscular Hemoglobin Concent 31.4 g/dl Red Cell Distribution Width 14.5 % Platelet Count 254 10^3/UL Mean Platelet Volume 10.8 fl Immature Granulocytes % 0.200 % Neutrophils % 35.8 % Lymphocytes % 46.0 % Monocytes % 9.0 % Eosinophils % 8.4 % Basophils % 0.6 % Nucleated Red Blood Cells % 0.0 /100WBC Immature Granulocytes # 0.010 10^3/ul Neutrophils # 1.9 10^3/ul Lymphocytes # 2.4 10^3/ul Monocytes # 0.5 10^3/ul Eosinophils # 0.4 10^3/ul Basophils # 0.0 10^3/ul Nucleated Red Blood Cells # 0.0 10^3/ul Sodium Level 138 mmol/L Potassium Level 4.1 mmol/L Chloride Level 102 mmol/L Carbon Dioxide Level 30 mmol/L Anion Gap 6 Blood Urea Nitrogen 26 mg/dl Creatinine 1.16 mg/dl Est Glomerular Filtrat Rate mL/min mL/min Glucose Level 109 mg/dl Calcium Level 9.3 mg/dl Troponin I < 0.012 ng/ml Current Medications Medications Dose Sig/Roxanna Start Time Status Last (Trade) Ordered Route PRN Stop Time Admin Dose Reason Admin 1 tab ONCE ONCE 02/05/19 DC 02/05/19 Acetaminophen PO 09:00 08:53 / 02/05/19 09:01 Hydrocodone Bitart ([place] ()) Procedures/MDM CT brain without: No acute process CT cervical spine without: 1. Negative for fracture, malalignment or other acute process. 2. Multilevel disc degeneration, marginal spurring and facet arthropathy. Mild - moderate central canal stenosis at C4-5. Varying degrees of foraminal narrowing from C3-4 through C6-7 as detailed above. 3. Carotid atherosclerosis This 78-year-old female presents to the ER for evaluation of neck pain. On my exam the patient is ambulating without difficulty, she is afebrile, ANO x4 with no focal neurological deficits. The patient did have some paraspinal tenderness to palpation however no midline tenderness. CT of the brain and cervical spine were obtained and showed no acute process. The patient's lab work is within normal limits with no signs of leukocytosis, troponin is negative. The patient was given p.o. [place] and on my reevaluation the patient's blood pressure is 132/74 she states she is feeling better. The patient is likely suffering from muscle strain of the neck and will be discharged home with a prescription for Ty lenol with codeine with strict return precautions. I doubt meningitis given her nontoxic appearance however she was advised she can return to the ER at any moment for reevaluation she does feel comfortable with her plan of care. Departure Diagnosis: Primary Impression: Cervical strain, acute Additional Impression: Hypertension Condition: Stable WILBUR PERKINS DO February 05, 2019 10:38
[2019-02-05] MEDS ORDERED: ACET1TAB40 PO (10:40)
[2019-02-05 11:05] VITALS: BP 156/79; PULSE 62; RESP 19
== END 2019-02-05 11:07 | disposition home or self-care (01) ==
LOC: E/R 08:24
DX: S16.1XXA Strain of muscle, fascia and tendon at neck level, initial encounter (principal); I10 Essential (primary) hypertension; E11.9 Type 2 diabetes mellitus without complications; J45.909 Unspecified asthma, uncomplicated; R51 Headache; X58.XXXA Exposure to other specified factors, initial encounter; Y92.9 Unspecified place or not applicable; Z79.82 Long term (current) use of aspirin; Z79.84 Long term (current) use of oral hypoglycemic drugs
CPT/HCPCS: 36415; 70450; 72125; 80048; 84484; 85025